=== PATIENT | female | born 1970 | race Caucasian/White ===

== ENCOUNTER 2020-05-11 07:12 | Outpatient (REF) | payer MEDICARE, MEDICAID, SELFPAY ==
--- NOTE | 2020-05-11 07:30 | MR_ITS ---
EXAMINATION: MR BRAIN WITHOUT CONTRAST CLINICAL INFORMATION: Migraine. Rule out ethmoid sinusitis. COMPARISON: Brain MRI report dated 04/17/2014. TECHNIQUE: Multiplanar, multisequence imaging of the brain was performed without contrast. FINDINGS: No diffusion abnormalities are identified to suggest an acute infarct. The ventricles are normal in size. No mass effect or midline shift is seen. A small focus of T2 hyperintense signal change in the subcortical white matter of the posterior right parietal lobe is nonspecific. No extra-axial fluid collections are seen. The brainstem and cerebellum are normal. The gradient refocused acquisition is normal. The craniovertebral junction, marrow signal, and midline structures are normal. The major intracranial flow voids at the level of the [place] are preserved. The dural venous sinus flow voids are maintained. The mastoid air cells and paranasal sinuses are well aerated. IMPRESSION: Nonspecific subcentimeter focus of signal change in the subcortical white matter of the posterior right parietal lobe of indeterminate clinical significance. Otherwise, relatively normal MRI of the brain. No acute process.
== END 2020-05-11 07:13 | disposition home or self-care (01) ==
LOC: HO.MRI 07:12
PROVIDERS: Visit Provider Psychiatry & Neurology Neurology
DX: G43.909 Migraine, unspecified, not intractable, without status migrainosus (principal)
CPT/HCPCS: 70551

== ENCOUNTER → 2020-05-25 14:37 | Outpatient (BNVA) | payer MEDICARE, MEDICAID, SELFPAY | PROVIDERS: PCP Internal Medicine; Referring Provider Internal Medicine; Visit Provider Internal Medicine Gastroenterology | DX: K31.84 Gastroparesis (principal); K59.00 Constipation, unspecified; R00.2 Palpitations; Z79.899 Other long term (current) drug therapy | CPT/HCPCS: 99212 ==

== ENCOUNTER → 2020-08-31 14:21 | Outpatient (BNVA) | payer MEDICARE, MEDICAID, SELFPAY | PROVIDERS: PCP Internal Medicine; Visit Provider Internal Medicine Gastroenterology | DX: Z76.89 Persons encountering health services in other specified circumstances (principal) | CPT/HCPCS: Q3014 ==

== ENCOUNTER 2020-11-12 09:19 | Outpatient (REF) | payer MEDICARE, MEDICAID, SELFPAY ==
[2020-11-12 10:23] LABS: Anion Gap 12 (12-20); Blood Urea Nitrogen 20 mg/dL (9-16); Calcium 9.5 mg/dL (8.4-10.2); Carbon Dioxide 27 mmol/L (22-29); Chloride 104 mmol/L (96-108); Estimated Glomerular Filt Rate > 60; Glucose Random 99 mg/dL (60-115); Potassium 3.7 mmol/L (3.3-5.1); Sodium 139 mmol/L (135-145)
[2020-11-14 21:26] LABS: Chromogranin A 167 ng/mL (25-140)
[2020-11-16 17:42] LABS: Insulin Level Total 2.4 uIU/mL
[2020-11-18 05:07] LABS: Beta-Hydroxybutyrate 0.05 mmol/L
[2020-11-18 13:56] LABS: Creatinine Random Urine 47 mg/dL (20-275); Metanephrine, Free Rand Ur 116 mcg/g cr (21-153); Normetanephrine, Free Rand Ur 166 mcg/g cr (108-524); Total Metanephrine, Free RU 282 mcg/g cr (149-603)
[2020-11-23 17:27] LABS: Catecholamine Frac, Total 901 pg/mL
== END 2020-11-12 09:20 | disposition home or self-care (01) ==
LOC: HO.LAB 09:19
PROVIDERS: PCP Internal Medicine; Visit Provider Internal Medicine Endocrinology, Diabetes & Metabolism
DX: E16.2 Hypoglycemia, unspecified (principal)
CPT/HCPCS: 36415; 80048; 82010; 82384; 83525; 83835; 84146; 84681; 86316

== ENCOUNTER 2020-11-14 08:30 | Outpatient (REF) | payer MEDICARE, MEDICAID, SELFPAY ==
[2020-11-19 01:57] LABS: Metanephrine, Free 24U 148 mcg/24 h (90-315); Normetanephrine, Free 24U 268 mcg/24 h (122-676); Total Metanephrine, Free 24U 416 mcg/24 h (224-832); Total Volume 24U 2650 mL
[2020-11-19 15:11] LABS: Creatinine, 24U 1.09 g/24 h (0.50-2.15); Total Volume 2650; Vanillymandelic Acid 2.1 mg/24 h (<=6.0)
[2020-11-19 15:37] LABS: CATF, 24 Ur Volume 2650 mL; CATF-24Ur Creatinine 1.07 g/24 h (0.50-2.15); Catecholamines,Tot. (E+NE) 24U 49 mcg/24 h (26-121); Dopamine, 24 Ur 168 mcg/24 h (52-480); Epinephrine, 24 Ur 10 mcg/24 h (2-24); Norepinephrine, 24 Ur 39 mcg/24 h (15-100)
== END 2020-11-14 08:31 | disposition home or self-care (01) ==
LOC: HO.LNP 08:30
PROVIDERS: Visit Provider Internal Medicine Endocrinology, Diabetes & Metabolism
DX: E16.2 Hypoglycemia, unspecified (principal)
CPT/HCPCS: 82384; 83835; 84585

== ENCOUNTER → 2020-11-18 07:18 | Outpatient (BNVA) | payer MEDICARE, MEDICAID, SELFPAY | PROVIDERS: PCP Internal Medicine; Visit Provider Internal Medicine Endocrinology, Diabetes & Metabolism | DX: E16.2 Hypoglycemia, unspecified (principal) | CPT/HCPCS: 99212 ==

== ENCOUNTER → 2020-12-22 13:47 | Outpatient (BNVA) | payer MEDICARE, MEDICAID, SELFPAY | PROVIDERS: PCP Internal Medicine; Visit Provider Internal Medicine Gastroenterology | DX: K31.84 Gastroparesis (principal) | CPT/HCPCS: 99212 ==

== ENCOUNTER → 2021-02-11 09:03 | Outpatient (BNVA) | payer MEDICARE, MEDICAID, SELFPAY | PROVIDERS: PCP Internal Medicine; Visit Provider Internal Medicine Endocrinology, Diabetes & Metabolism | DX: E16.2 Hypoglycemia, unspecified (principal) | CPT/HCPCS: Q3014 ==

== ENCOUNTER → 2021-06-18 08:55 | Outpatient (BNVA) | payer MEDICARE, MEDICAID, SELFPAY | PROVIDERS: PCP Internal Medicine; Visit Provider Internal Medicine Gastroenterology | DX: Z13.89 Encounter for screening for other disorder (principal) | CPT/HCPCS: Q3014 ==

== ENCOUNTER → 2021-10-15 08:45 | Outpatient (BNVA) | payer MEDICARE, MEDICAID, SELFPAY | PROVIDERS: PCP Internal Medicine; Visit Provider Internal Medicine Gastroenterology | DX: Z13.89 Encounter for screening for other disorder (principal) | CPT/HCPCS: Q3014 ==

== ENCOUNTER 2021-10-19 07:55 | Outpatient (REF) | payer MEDICARE, MEDICAID, SELFPAY ==
[2021-10-20 16:16] LABS: H Pylori Breath Test Negative (Negative)
== END 2021-10-19 07:56 | disposition home or self-care (01) ==
LOC: HO.LNP 07:55
PROVIDERS: PCP Internal Medicine; Visit Provider Internal Medicine Gastroenterology
DX: R10.13 Epigastric pain (principal); E16.2 Hypoglycemia, unspecified
CPT/HCPCS: 83013; 99211; 99212

== ENCOUNTER → 2022-01-17 09:12 | Outpatient (BNVA) | payer MEDICARE, MEDICAID, SELFPAY | PROVIDERS: PCP Internal Medicine; Visit Provider Internal Medicine Gastroenterology | DX: K31.84 Gastroparesis (principal); K21.9 Gastro-esophageal reflux disease without esophagitis | CPT/HCPCS: 99212 ==

== ENCOUNTER → 2022-06-27 11:49 | Outpatient (BNVA) | payer MEDICARE, MEDICAID, SELFPAY | PROVIDERS: PCP Internal Medicine; Visit Provider Internal Medicine Gastroenterology | DX: K31.84 Gastroparesis (principal); K21.9 Gastro-esophageal reflux disease without esophagitis | CPT/HCPCS: Q3014 ==

== ENCOUNTER 2023-01-30 13:37 | Outpatient (REF) | payer MEDICARE, MEDICAID, SELFPAY ==
[2023-01-30 14:32] LABS: MANUAL DIFF FLAG NO
[2023-01-30 15:24] LABS: Basophils Percent Auto 0.6 % (0-2); Eosinophils Absolute Auto 0.1 X10*3/uL (0.0-0.4); Eosinophils Percent Auto 1.2 % (0-4); Hematocrit 42.8 % (37.0-47.0); Hemoglobin 14.8 g/dl (12.0-16.0); Imm Gran Abs Auto 0.02 X10*3/uL (0.00-0.03); Imm Gran Pct Auto 0.3 % (0.0-0.4); Lymphocytes Absolute Auto 1.8 X10*3/uL (1.2-4.9); Mean Corpuscular HGB Conc 34.6 g/dl (31.0-35.0); Mean Corpuscular Hemoglobin 31.6 pg (27.0-33.0); Mean Corpuscular Volume 91.5 fL (80.0-98.0); Mean Platelet Volume 9.5 fL (9.4-12.3); Monocytes Absolute Auto 0.4 X10*3/uL (0.1-1.2); Monocytes Percent Auto 5.9 % (2-11); Neutrophils Absolute Auto 4.1 x10*3/uL (2.0-8.3); Platelet Count 295 X10*3/uL (160-400); Red Blood Count 4.68 X10*6/uL (4.20-5.50); Red Cell Distribution Width 13.2 % (11.0-16.0); White Blood Count 6.4 X10*3/uL (4.8-10.8)
[2023-01-30 15:52] LABS: Alanine Aminotransferase 23 U/L (0-31); Albumin Level 4.5 g/dL (3.5-5.0); Alkaline Phosphatase 74 U/L (39-117); Anion Gap 13 (12-20); Aspartate Amino Transferase 18 U/L (5-31); Bilirubin Total 0.3 mg/dL (0.0-1.0); Blood Urea Nitrogen 12 mg/dL (9-16); Calcium 10.2 mg/dL (8.4-10.2); Carbon Dioxide 28 mmol/L (22-29); Chloride 105 mmol/L (96-108); Estimated Glomerular Filt Rate > 60; Glucose Random 98 mg/dL (60-115); Potassium 3.5 mmol/L (3.3-5.1); Sodium 142 mmol/L (135-145); Total Protein 7.9 g/dL (6.5-8.0)
[2023-01-30 16:07] LABS: Ferritin 32 ng/mL (10-250); Vitamin D 25-OH Total 50.1 ng/mL (>30)
[2023-01-30 16:21] LABS: Folate 15.4 ng/mL (> or = 4.0); Vitamin B12 554 pg/mL (200-900)
[2023-02-02 06:13] LABS: Zinc 75 mcg/dL (60-130)
[2023-02-02 23:48] LABS: Alpha-Tocopherol 9.8 mg/L (5.7-19.9); Beta-Gamma Tocopherol <1.0 mg/L (<=4.3); Vitamin A 61 mcg/dL (38-98)
[2023-02-03 14:48] LABS: Vitamin B1 7 nmol/L (8-30)
[2023-02-03 17:38] LABS: Vitamin K1 184 pg/mL (130-1500)
[2023-02-04 17:53] LABS: Vitamin C 0.6 mg/dL (0.3-2.7)
[2023-02-04 21:48] LABS: Nicotinamide 24 ng/mL; Vit B3 - Nicotinic Acid <20 ng/mL
[2023-02-04 22:59] LABS: Vitamin B5 (Pantothenic Acid) 56 ng/mL (<275)
[2023-02-05 11:54] LABS: Vitamin B6 5.4 ng/mL (2.1-21.7)
== END 2023-01-30 13:38 | disposition home or self-care (01) ==
LOC: HO.LAB 13:37
PROVIDERS: PCP Internal Medicine; Visit Provider Internal Medicine Gastroenterology
DX: K75.81 Nonalcoholic steatohepatitis (NASH) (principal); K31.84 Gastroparesis; K21.9 Gastro-esophageal reflux disease without esophagitis; E46 Unspecified protein-calorie malnutrition
CPT/HCPCS: 36415; 80053; 82180; 82306; 82607; 82728; 82746; 84207; 84425; 84446; 84590; 84591; 84597; 84630; 85025; 99212

== ENCOUNTER 2023-10-09 09:38 | Outpatient (AMB) | payer MEDICARE, MEDICAID, SELFPAY ==
--- NOTE | 2023-10-09 09:43 | A.OFFVIS_ITS ---
Intake Vital Signs 10/09/23 09:47 Height 5 ft 5 in Weight 134 lb 7.712 oz BMI 22.4 BP 111/67 Blood Pressure Location Lt brachial Position Sitting Pulse 87 Intake Visit Reasons: 6 month fu Intake Note: Lorie presents in the office as a 6 month follow up. She states that she was just diagnosed with Osteoporosis and she needs to be seen by an Human Resources Benefits Coordinator for her GERD. GERD is getting worse and she is aware of the hiatal hernia. She wants to know if she can have an EGD to see if it has gotten any bigger. Allergies egg yolk Allergy (Mild, Verified 10/09/23 09:47) Unknown clarithromycin [From BIAXIN] Allergy (Unknown, Verified 10/09/23 09:47) SWELLING codeine [CODEINE] Allergy (Unknown, Verified 10/09/23 09:47) SWELLING egg [EGG] Allergy (Unknown, Verified 10/09/23 09:47) SWELLING metoclopramide [From REGLAN] Allergy (Unknown, Verified 10/09/23 09:47) SWELLING nortriptyline Allergy (Unknown, Verified 10/09/23 09:47) swelling raw eggs Allergy (Mild, Uncoded 10/09/23 09:47) unknown Biaxin Allergy (Unknown, Uncoded 10/09/23 09:47) unknown HPI 6 month fu HPI Details 53 y/o f w gastroparesis, horseshoe kidn ey, hiatal hernia repair, cholecystectomy and chronic constipation being seen for f/u RECAP: she was initially seen by me at [facility] and had numerous Ix for abdominal sx was dx with gastroparesis she received endoscopic injection of botox for gastroparesis, she is unsure if helped c/o trouble swallowing both liquids and swallows, sometimes pain with swallowing pills worsening GERD worsening constipation, more pressure and straining required, has pain when trying to pass stools she has thought about manual disimpaction but never done it trulance didn;t help, restarted linalcotide for few months uncertain if helping EGD with esophageal/stomach dilation and botox injection MR defecogram was denied by insurance, she had tried pelvic floor exercises before Ba swallow: small hiatal hernia, pill went down easy, small amount of reflux CT with appendiceal fecolith, had appendectomy she had been referred to endocrine due to shaking episodes, sweaty and pale, feeling low, and has to take sugary items, never checked her blood sugar--work up in progress she was on motegrity 2 mg but didn't help she has been on linaclotide and its helping again she has had more acid reflux, had to be off PPI for tests appetite is variable stressed out due to covid, worried abt son on front line things are stable so far following up with endocrine for eval for insulinoma assessment I also gave her azithromycion as pro motility agent in case of flares of gastroparesis H pylori breath test was negative INTERIM: she has noted worsening heartburn but no dysphagia she had osteoposoris dx, waiting to see endocrinology uses azithormycin sparingly, feels gastroparesis better still taking linaclotide for constipation, feels maybe lost effect b1 was v low, hard for her to takke tabs due to smell EXAM: GENERAL: The patient is well developed and nontoxic. VITAL SIGNS:see workflow HEENT: Nonicteric sclerae, PERRLA, EOMI. Oropharynx clear. Moist mucous membranes. Conjunctivae appear well perfused. No thyroid mass. CHEST: Chest wall is nontender. HEART: Regular rate and rhythm without murmurs. LUNGS: Clear to auscultation bilaterally. ABDOMEN: Soft, positive bowel sounds, nontender, no organomegaly.no flank tenderness SKIN: No rash, no excessive bruising, petechiae, or purpura. NEUROLOGIC: Cranial nerves II-XII intact without motor/sensory deficit. Assessment & Plan 1/ Gastroparesis: improvement with azit hromycin prn 2/ GERD related to 1/ above--controlled 3/ constipation, controlled 4/ vit C def, thiamine defc Plan: 1/ cont with omeprazole 2/ cont with azithormycin prn 3/ change linaclotide to trulance 4/ esophageal ba swallow test 5/ thiamine caps can be tried or she can crush the b1 and take with food PFSH Medical History Epigastric abdominal pain Hypoglycemia Surgical History (Updated 10/09/23 @ 09:48 by BRITTANY Verduzco) Hx of total knee replacement H/O cataract removal with insertion of prosthetic lens Hx of appendectomy History of carpal tunnel release Hx of eye surgery Hx of bladder repair surgery History of repair of hiatal hernia Hx of abdominal hysterectomy Hx of fusion of cervical spine Hx of endoscopy History of colonoscopy Family History Father History of cancer Mother Hx of heat stroke Social History Alcohol intake: current Alcohol intake frequency: holidays/special occasions only Substance Use Type: Marijuana Advance Directives Date on File: 05/11/20 Physical Exam Vital Signs: Last Vital Signs Pulse 87 10/09/23 09:47 BP 111/67 10/09/23 09:47 BMI result Body Mass Index 22.4 Assessment & Plan Assessment & Plan (1) GERD without esophagitis: Code(s): K21.9 - Gastro-esophageal reflux disease without esophagitis Plan: Plan: 1/ cont with omeprazole 2/ cont with azithormycin prn 3/ change linaclotide to trulance 4/ esophageal ba swallow test 5/ thiamine caps can be tried or she can crush the b1 and take with food Orders: Orders FL barium swallow Today K21.9 - Gastro-esophageal reflux disease without esophagitis Medications: New plecanatide (Trulance) 3 mg PO DAILY 30 tabs 3RF Coding Level of Care Code Est Pt Level 4 (95751) Diagnoses GERD without esophagitis K21.9
[2023-10-09 09:47] VITALS: BP 111/67; PULSE 87; BMI 22.4
== END 2023-10-09 10:21 | disposition home or self-care (01) ==
PROVIDERS: PCP Internal Medicine; Visit Provider Internal Medicine Gastroenterology
DX: K21.9 Gastro-esophageal reflux disease without esophagitis (principal)
CPT/HCPCS: 99214

== ENCOUNTER → 2023-10-09 09:38 | Outpatient (BNVA) | payer MEDICARE, MEDICAID, SELFPAY | PROVIDERS: PCP Internal Medicine; Visit Provider Internal Medicine Gastroenterology | DX: K21.9 Gastro-esophageal reflux disease without esophagitis (principal) | CPT/HCPCS: 99212 ==

== ENCOUNTER 2023-11-16 09:45 | Outpatient (REF) | payer MEDICARE, MEDICAID, SELFPAY ==
--- NOTE | ~2023-11-16 | FL_ITS ---
EXAMINATION: XR FLUOROSCOPY BARIUM SWALLOW CLINICAL INFORMATION: 53-year-old female, prior history of Melodie fundoplication with hiatal hernia repair, now complaining of worsening GERD; evaluate for hernia recurrence or other pathology. COMPARISON: 03/26/2019 barium swallow. TECHNIQUE: Fluoroscopic air contrast barium swallow examination was performed utilizing standard techniques with thin and thick barium and effervescent granules. Numerous spot images were obtained. Several fluoroscopic image hold cine sequences were also obtained. FINDINGS: The patient has anterior cervical fusion of C5-C6 with ventral plate and interbody screws, as well as cortical disc graft. No complication evident. There is bony fusion through the disc space. No mass effect upon the hypopharyngeal structures. In addition, cholecystectomy clips are noted. Patient has also had a lumbar fusion of L5-S1. Pallet Stone Positioner view demonstrates clear lungs, normal heart size. Normal bowel gas pattern present with mild to moderate stool burden seen. Lateral cine images of the oropharynx and hypopharynx demonstrate normal swallow mechanism with normal epiglottic inversion and soft palate elevation. On the first swallow, laryngeal penetration to the level of the false cords was present, without evidence of glottic or subglottic aspiration. Minimal nasopharyngeal reflux present. Persistent mild pooling in the vallecula and piriform sinuses. Hypopharyngeal structures appear normal without evidence of mass or diverticulum. There was no significant cricopharyngeal achalasia. Dual and single contrast images of the esophagus demonstrate normal caliber and contour. Granular mucosal pattern in the distal two thirds of the esophagus is noted (or 4-1, image 3 of 15) suggesting erosive esophagitis. Mild narrowing at the GE junction was noted, in keeping with prior Melodie fundoplication. There was a moderate-sized recurrent paraesophageal hiatus hernia present, which predisposed to episodic significant reflux. Mild esophageal dysmotility was noted, with feline contraction pattern of the upper one third, most often resulting from reflux. Unusual polypoid filling defect in the distal esophagus just above the hiatus hernia was present (RF 1-5, image 71 of 131), which may represent esophageal polyp although postop changes are a possibility. Significant gastroesophageal reflux was noted throughout the examination, most notable on supine positioning, where reflux reached the hypopharynx. Dual contrast and single contrast images of the stomach demonstrated normal contour. There were thickened rugal gastric folds, as well as several small filling defect in the antrum and body, suggesting small hyperplastic polyps. A few small foci of contrast pooling are consistent with small submucosal apthous ulcers. Findings suggest erosive esophagitis. Later views appeared to demonstrate mobile filling defects suggesting food and gastroparesis. Patient states they were nothing by mouth since prior evening. Delayed contrast passage noted into the duodenal bulb and duodenum. Findings support gastroparesis. Single and air-contrast images of the duodenal bulb demonstrate no abnormality. Limited evaluation of the duodenal sweep demonstrates no definite abnormality. No malrotation. The imaged proximal jejunum was limited in evaluation due to underdistention with contrast. FLUOROSCOPY TIME: 5 minutes 4 seconds Number of Spot Images: 15 Number of cines obtained: 15 DOSE AREA PRODUCT: 2516 uGy-m2 (microgray-meter squared) FL/FL barium swallow IMPRESSION: 1. Moderate-sized recurrent paraesophageal hiatus hernia, with evidence of prior Melodie fundoplication. 2. Extensive spontaneous gastroesophageal reflux, likely exacerbated by recurrent hernia. Reflux was seen to extend all the way into the hypopharynx. 3. Unusual linear filling defect in the distal esophagus, just above the hiatus hernia, for which a polyp is not excluded. This could also represent postsurgical change from prior Melodie fundoplication. Granular mucosal pattern in the distal one half of the esophagus suggests mild erosive esophagitis. 4. Feline contraction pattern of the upper one third of the esophagus, often associated with reflux. Mild to moderate esophageal dysmotility most notable in the distal one third. 5. Findings highly suggestive of erosive gastritis, with rugal fold thickening, submucosal aphthous ulcers, and associated retained filling defects which were mobile suggesting food and gastroparesis. The patient states she was nothing by mouth since prior evening. 6. Delayed contrast progression into the duodenum. 7. Limited evaluation of the duodenum and proximal jejunum due to poor contrast opacification. 8. On the first swallow, there was laryngeal penetration of thick barium to the level of the false cords. There was no glottic or subglottic aspiration. 9. Cervical fusion of C5-C6 without complication. No mass effect upon the hypopharynx. Given above findings, recommend GI consultation and correlation with EGD. Examination was performed and interpreted by Dr. Del Castillo.
== END 2023-11-16 09:46 | disposition home or self-care (01) ==
LOC: HO.XRAY 09:45
PROVIDERS: PCP Internal Medicine; Visit Provider Internal Medicine Gastroenterology
DX: K21.9 Gastro-esophageal reflux disease without esophagitis (principal)
CPT/HCPCS: 74220

== ENCOUNTER → 2023-11-16 09:46 | Outpatient (BNV) | payer MEDICARE, MEDICAID, SELFPAY | PROVIDERS: PCP Internal Medicine; Visit Provider Radiology Diagnostic Radiology | DX: K21.9 Gastro-esophageal reflux disease without esophagitis (principal); K44.9 Diaphragmatic hernia without obstruction or gangrene | CPT/HCPCS: 74246 ==

== ENCOUNTER 2024-01-05 08:43 | Outpatient (AMB) | payer MEDICARE, MEDICAID, SELFPAY ==
--- NOTE | 2024-01-05 08:47 | A.OFFVIS_ITS ---
VS Expanded 01/05/24 08:58 BP 118/63 Blood Pressure Location Rt brachial Blood Pressure Position Sitting Pulse 88 Pulse Source Pulse Oximeter Temp 97.3 F Temperature Source Tympanic Pulse Oximetry 100 Oxygen Delivery Method Room Air Height 5 ft 5 in Weight 129 lb 12.8 oz BMI 21.6 Body Fat % 30.1 Body Fat Mass 39.0 Fat Free Mass 90.6 Visceral Fat Rating 5.0 Body Water % 49.7 Body Water Mass 64.4 Muscle Mass/Score 86.0 Basal Metabolic Rate/Score 1,228 Intake Visit Reasons: OV Hiatal Hernia - Dr. Santana Ref. Allergies egg yolk Allergy (Mild, Verified 01/05/24 09:48) Unknown clarithromycin [From BIAXIN] Allergy (Unknown, Verified 01/05/24 09:48) SWELLING codeine [CODEINE] Allergy (Unknown, Verified 01/05/24 09:48) SWELLING egg [EGG] Allergy (Unknown, Verified 01/05/24 09:48) SWELLING metoclopramide [From REGLAN] Allergy (Unknown, Verified 01/05/24 09:48) SWELLING nortriptyline Allergy (Unknown, Verified 01/05/24 09:48) swelling raw eggs Allergy (Mild, Uncoded 01/05/24 09:48) unknown Biaxin Allergy (Unknown, Uncoded 01/05/24 09:48) unknown Medication List - Last Reconciled 01/05/24 by Luis Alvarez MD alprazolam 0.5 mg PO DAILY azithromycin 500 mg PO DAILY 21 days bupropion HCl XL 300 mg PO DAILY tzvrcbaxyq-wmsoomfipimoe-opdc 50-325-40 mg 1 tab PO PRN celecoxib mg PO cholecalciferol (vitamin D3) (Vitamin D3) 25 mcg PO DAILY cyanocobalamin (vitamin B-12) 1,000 mcg IM Q4W cyclobenzaprine 5 mg PO DAILY dronabinol 10 mg PO duloxetine mg PO estradiol 2 mg PO DAILY galcanezumab-gnlm 120 mg subcut .once a month hydrochlorothiazide 25 mg PO DAILY lidocaine 4% (Lidocaine Pain Relief) 1 patch topical DAILY omeprazole 40 mg PO DAILY ondansetron 4 mg PO Q8H PRN 30 days plecanatide (Trulance) 3 mg PO DAILY potassium citrate ER 20 mEq PO TID prazosin 1 mg PO DAILY sumatriptan succinate 100 mg PO DAILY topiramate 100 mg PO BID valacyclovir mg PO DAILY zolpidem 10 mg PO BEDTIME HPI Comments Details: Patient has a history of hiatal hernia repair and Melodie fundoplication by Dr. Jiménez at [facility] about 19 years ago. She knows she has a recurrent hernia and states that GERD is almost as bad as it was before the repair. Had also dysphagia and required several EGD dilations. [facility] Medical History (Updated 01/05/24 @ 09:46 by Luis Alvarez MD) Insomnia Migraines Epigastric abdominal pain Hypoglycemia Surgical History (Updated 01/05/24 @ 08:56 by Ashwini Gipson CMA) Hx of cholecystectomy Hx of spinal fusion History of fundoplication Hx of total knee replacement H/O cataract removal with insertion of prosthetic lens Hx of appendectomy History of carpal tunnel release Hx of eye surgery Hx of bladder repair surgery History of repair of hiatal hernia Hx of abdominal hysterectomy Hx of fusion of cervical spine Hx of endoscopy History of colonoscopy Family History Father History of cancer Mother Hx of heat stroke Social History Alcohol intake: current Alcohol intake frequency: holidays/special occasions only Substance Use Type: Marijuana Advance Directives Date on File: 05/11/20 Physical Exam Vital Signs: Last Vital Signs Temp 97.3 F 01/05/24 08:58 Pulse 88 01/05/24 08:58 BP 118/63 01/05/24 08:58 Pulse Ox 100 01/05/24 08:58 Oxygen Delivery Method Room Air 01/05/24 08:58 BMI result Body Mass Index 21.6 GI Inspection: Yes normal to inspection (Gynecoid habitus) and Yes incision (well healed) Palpation (GI): Soft to palpation Extrem Right lower extremity: normal to inspection Left lower extremity: normal to inspection Assessment & Plan Assessment & Plan (1) Paraesophageal hernia: Code(s): K44.9 - Diaphragmatic hernia without obstruction or gangrene Category: Medical Plan: We discussed the potential etiology of the hernia. We discussed the details of the diaphragmatic hernia repair and the potential technical challenges such as being able to achieve enough mobilization of the esophagus back in the abdomen and being able to close the diaphragmatic muscle (crura) primarily with sutures especially because of the previous hernia repair and scar tissue present. We also discussed the possibility of using a biologic mesh to close the hernia defect if the crura cannot be adequately re-approximated primarily with sutures. We also discussed the need to take down the previous fundoplication and this may require a limited resection of the stomach as well. We also discussed the need to do a gastropexy to prevent postoperative reflux and prevent hernia recurrence. As we discussed, I favor the gastropexy as the fundoplication can cause several distrurbing symptoms such as gas-bloating, flatulence, inability to burp which can be bothersome to patients especially for her. Also we discussed the complexity of a potential hernia recurrence in association with a hernia recurrence. We also discussed the risks, which are higher because of the re-do nature of this surgery including, leak, esophageal injury, pneumothorax, need of chest tube, major bleeding, or inability to complete the procedure safely. The patient understood and she will discuss with her and get back to me as to what she would like to do.
[2024-01-05 08:58] VITALS: BP 118/63; PULSE 88; TEMP 36.3; O2SAT 100; BMI 21.6
== END 2024-01-05 09:56 | disposition home or self-care (01) ==
PROVIDERS: PCP Internal Medicine; Visit Provider Surgery
DX: K44.9 Diaphragmatic hernia without obstruction or gangrene (principal)
CPT/HCPCS: 99204

== ENCOUNTER → 2024-01-05 08:43 | Outpatient (BNVA) | payer MEDICARE, MEDICAID, SELFPAY | PROVIDERS: PCP Internal Medicine; Visit Provider Surgery | DX: K44.9 Diaphragmatic hernia without obstruction or gangrene (principal) | CPT/HCPCS: 99202 ==

== ENCOUNTER 2024-02-06 08:52 | Day surgery (SDC) | payer MEDICARE, MEDICAID, SELFPAY ==
[2024-02-06 09:00] VITALS: BMI 21.0
[2024-02-06 09:19] VITALS: BP 113/72; PULSE 79; RESP 16; TEMP 36.2; O2SAT 97
--- NOTE | 2024-02-06 10:18 | HO.ANESPROP2 ---
HPI - Anesthesia Eval Consult details Narrative: 53 yo female patient for EGD PMFSH Active Problems Active Problems: All Active Problems Insomnia (Acute) Migraines (Acute) Paraesophageal hernia (Acute) Malnutrition (Acute) Hypoglycemia (Acute) GERD without esophagitis (Acute) Gastroparesis (Acute) Palpitations (Acute) Marijuana use- Last weeks ago Past Medical History Medical History Insomnia Migraines Epigastric abdominal pain Hypoglycemia Family History Family History Father History of cancer Mother Hx of heat stroke Family history of problems with anesthesia: No Surgical History Surgical History Hx of cholecystectomy Hx of spinal fusion History of fundoplication Hx of total knee replacement H/O cataract removal with insertion of prosthetic lens Hx of appendectomy History of carpal tunnel release Hx of eye surgery Hx of bladder repair surgery History of repair of hiatal hernia Hx of abdominal hysterectomy Hx of fusion of cervical spine Hx of endoscopy History of colonoscopy History of Problems with Anesthesia: Yes (H/o difficult intubation) Social History Social History Alcohol intake: current Alcohol intake frequency: holidays/special occasions only Patient Tobacco Use Status: Never used Tobacco Use of substances other than those prescribed or required for medical reasons: Yes Substance Use Type: Marijuana Substance Use Type Other:: Edibles and Smoke Are you DNR?: No Advance Directives: No Advance Directives Information Provided: Yes Advance Directives Date on File: 05/11/20 Meds Allergies Allergy/AdvReac Type Severity Reaction Status Date / Time egg yolk Allergy Mild Unknown Verified 02/06/24 09:21 clarithromycin [From BIAXIN] Allergy Unknown SWELLING Verified 02/06/24 09:21 codeine [CODEINE] Allergy Unknown SWELLING Verified 02/06/24 09:21 egg [EGG] Allergy Unknown SWELLING Verified 02/06/24 09:21 metoclopramide [From REGLAN] Allergy Unknown SWELLING Verified 02/06/24 09:21 nortriptyline Allergy Unknown swelling Verified 02/06/24 09:21 raw eggs Allergy Mild unknown Uncoded 02/06/24 09:21 Biaxin Allergy Unknown unknown Uncoded 02/06/24 09:21 Active Medications: Current Medications Lactated Ringer's (Lr) 1,000 mls @ 80 mls/hr IVCONT .[id number] DANIEL Home Medications ?Medication ?Instructions ?Recorded ?Confirmed ?Last Taken ?Type cyclobenzaprine 5 mg tablet 5 mg PO DAILY 02/11/21 02/06/24 02/05/24 History estradiol 2 mg tablet 2 mg PO DAILY 02/11/21 02/06/24 02/05/24 History dronabinol 10 mg capsule 10 mg PO DAILY 10/19/21 02/06/24 02/05/24 History prazosin 1 mg capsule 1 mg PO DAILY 10/19/21 02/06/24 02/05/24 History alprazolam 0.5 mg tablet 0.5 mg PO DAILY 01/17/22 01/05/24 Unknown History valacyclovir 500 mg tablet mg PO DAILY 01/17/22 01/05/24 Unknown History ptzinbqiyf-bsvkaqsijqoom-chocmucl 1 tab PO PRN pain 06/27/22 01/05/24 Unknown History 50 mg-325 mg-40 mg tablet cyanocobalamin (vitamin B-12) 1,000 mcg IM Q4W 06/27/22 02/06/24 02/05/24 History 1,000 mcg/mL injection solution galcanezumab-gnlm 120 mg/mL 120 mg subcut .once a month 06/27/22 01/05/24 Unknown History subcutaneous pen injector omeprazole 40 mg capsule,delayed 40 mg PO DAILY GERD 06/27/22 02/06/24 02/05/24 History release potassium citrate 10 mEq (1,080 20 meq PO TID 06/27/22 01/05/24 Unknown History mg) tablet,extended release sumatriptan succinate 100 mg tablet 100 mg PO DAILY 06/27/22 01/05/24 Unknown History zolpidem 10 mg tablet 10 mg PO BEDTIME 06/27/22 01/05/24 Unknown History celecoxib 200 mg capsule 200 mg PO DAILY 01/30/23 02/06/24 02/05/24 History cholecalciferol (vitamin D3) 25 25 mcg PO DAILY 01/30/23 02/06/24 02/05/24 History mcg (1,000 unit) tablet (Vitamin D3) hydrochlorothiazide 50 mg tablet 25 mg PO DAILY 01/30/23 02/06/24 02/05/24 History lidocaine 4 % topical patch 1 patch topical DAILY 01/30/23 01/05/24 Unknown History (Lidocaine Pain Relief) bupropion HCl 150 mg 24 hr tablet, 300 mg PO DAILY 10/09/23 02/06/24 02/05/24 History extended release duloxetine 30 mg capsule,delayed 30 mg PO DAILY 10/09/23 02/06/24 02/05/24 History release topiramate 100 mg tablet 100 mg PO BID 10/09/23 02/06/24 02/05/24 History Exam Height,Weight and Vital Signs: Height 5 ft 5 in Weight 57.153 kg Last Vital Signs Temp 97.2 F 02/06/24 09:19 Pulse 79 02/06/24 09:19 Resp 16 02/06/24 09:19 BP 113/72 02/06/24 09:19 Pulse Ox 97 02/06/24 09:19 O2 Del Method Room Air 02/06/24 09:19 Airway Mallampati Class: III (Small mouth. Cervical fusion) TM Dist: >3cm Neck ROM: Full Loose/Missing/Broken Teeth: No Heart: RRR Lungs: CTAB Assessment and Plan Assessment Anesthesia Assessment: Anesthesia Plan Discussed and Chart Reviewed Final Anesthetic Review Family History of Problems with Anesthesia: No History of Problems with Anesthesia: Yes (H/o difficult intubation) NPO: Yes ASA Class: III Final Preanesthetic Review: No Changes in Pt Med Stat, Meds/Allgs Chart Reviewed, Consent Obtained/Reviewed and Anes Risks/Benef Reviewed Patient Risk: Intermediate Procedure Risk: Low Assessment/Block/Sedation in SS: Assess/Block/Sedation-SS Anesthetic Plan Anesthetic Plan: GA and TIVA Disposition: Standard PACU
--- NOTE | 2024-02-06 10:36 | P.HPSUR_ITS ---
Pre-Procedural Eval Section A - 24 Hr Update-Section A only Date of Service: 02/06/24 The patient is an INPATIENT: No Section B - Complete if H&P > 30 days Chief Complaint: Diaphragmatic hernia without obstruction Details of Present Illness: GERD Relevant Family History (Specify if Yes): No Relevant Social History: None Present Medications: None Medical History: No relevant PMH History of Previous Operations: Relevant previous surgery/procedure and date(s) (laparoscopic diaphragmatic hernia and fundoplication) Allergies: Allergies Allergy/AdvReac Type Severity Reaction Status Date / Time egg yolk Allergy Mild Unknown Verified 02/06/24 09:21 clarithromycin [From BIAXIN] Allergy Unknown SWELLING Verified 02/06/24 09:21 codeine [CODEINE] Allergy Unknown SWELLING Verified 02/06/24 09:21 egg [EGG] Allergy Unknown SWELLING Verified 02/06/24 09:21 metoclopramide [From REGLAN] Allergy Unknown SWELLING Verified 02/06/24 09:21 nortriptyline Allergy Unknown swelling Verified 02/06/24 09:21 raw eggs Allergy Mild unknown Uncoded 02/06/24 09:21 Biaxin Allergy Unknown unknown Uncoded 02/06/24 09:21 Review of Systems Sugical H&P ROS: Negative: Constitution, Cardiovascular, Respiratory, Neurologic al, Psychiatric, Hem-Onc, Allergic/Immunologic, Gastrointestinal, Genitourinary, Musculoskeletal, Integumentary, Endocrine and Eyes/Ears/Nose/Throat Exam Surgical H&P Exam: Normal: HEENT, Normal: Heart, Normal: Lungs, Normal: Extremities, Normal: Abdomen, Normal: Skin and Normal: Neurological Plan Diagnosis/Plan: Unchanged (EGD to assess the hiatal hernia repair. Risks of bleeding and perforation were discussed with the patient and she is in agreement with the plan.) I have reviewed the history and physical and performed a pertinent physical examination on my patient. No changes have occurred unless specified. Time Spent With Patient Time: Total time managing care of this patient today ____ minutes.
--- NOTE | 2024-02-06 10:41 | P.BOP_ITS ---
Brief Operative Note Date of Service: 02/06/24 Pre-op diagnosis: GERD and recurrent diaphragmatic hernia Post-op diagnosis: same Procedure: PROCEDURE DATE: 02/07/2024 PREOPERATIVE DIAGNOSIS: GERD and diaphragmatic hernia POSTOPERATIVE DIAGNOSIS: ?Same as above. 1) recurrent diaphragmatic hernia PROCEDURE: Bzlndhpn-foqgzx-tnnhiczfkuoy with biopsies Surgeon: ?Guillermo Alvarez M.D.. Ph.D. Integration Project Manager: None ? Anesthesia: IV sedation Estimated blood loss: ?Minimal FINDINGS AND PROCEDURE: ? OPERATIVE INDICATIONS: ?The patient is a 53 year old female known to me who underwent a diaphragmatic hernia repair with fundoplication in 1997 at [facility]. The patient has recurrent GERD and recent work-up is suggestive for a recurrent hiatal hernia. Based on this information I recommended an upper endoscopy to evaluate the patient's symptoms. Risks and complications of the surgery were discussed with the patient in advance particularly the possibility of perforation or bleeding that may require surgical intervention. The patient understood the risks and was in agreement with the plan. ? PROCEDURE: After informed consent was obtained by the patient, the patient was ?transferred to the Operating Room and was placed in the supine position.? After successful induction of IV sedation, a mouth block was inserted and the patient was placed in the left lateral decubitus position. An upper endoscopy was performed next, the oropharynx and esophagus appeared within the normal limits. There was a 4cm fixed hiatal hernia (GE junction at 36cm from incisors and hiatus at 40cm from incisors). The z-line was smooth. Two biopsies were obtained from the distal esophagus 2-3 cm proximal to the GE junction and three additional biopsies from the GE junction. The stomach was entered and it appeared to be of normal size. There was no gastritis. There was no stricture or ulcer. A biopsy was obtained from the gastric fundus and antrum. No significant bleeding was noted from any of the biopsy sites. Retroflexion of the scope confirmed the presence of the diaphragmatic hernia. The scope was then advanced into the duodenum which appeared to be normal as well. At that point the duodenum ?and the stomach were decompressed and the scope was withdrawn from the patient's mouth. The patient extubated and was transferred in stable condition to the Recovery Room for further care. I was present and performed all steps of the procedure. There were no residents to assist with this case. Guillermo Alvarez M.D., Ph.D. Surgeon: Luis Alvarez MD Anesthesia: MAC Was an Integration Project Manager used for this Procedure?: No Estimated blood loss (mL): 0 IV fluids (mL): 400 Urine output (mL): 0 (No Dong to record output) Pathology: other (1) antrum x1, 2) fundus x1, 3) GE junction x3, 4) distal esophagus x2) Condition: stable Disposition: PACU
[2024-02-06 11:15] VITALS: BP 91/51; PULSE 68; RESP 16; TEMP 36.6; O2SAT 98
[2024-02-06 11:20] VITALS: BP 88/53; PULSE 69; RESP 16; O2SAT 100
[2024-02-06 11:30] VITALS: BP 102/66; PULSE 81; RESP 16; O2SAT 100
[2024-02-06 11:45] VITALS: BP 100/65; PULSE 77; RESP 16; TEMP 36.5; O2SAT 99
== END 2024-02-06 12:34 | disposition home or self-care (01) ==
PROVIDERS: PCP Internal Medicine; Visit Provider Surgery
PROC: 0DJ08ZZ Inspection of Upper Intestinal Tract, Via Natural or Artificial Opening Endoscopic (ICD-10-PCS; CPT 43235; principal; 2024-02-06 10:50)
DX: K21.9 Gastro-esophageal reflux disease without esophagitis (principal); K44.9 Diaphragmatic hernia without obstruction or gangrene; E16.2 Hypoglycemia, unspecified; Z79.899 Other long term (current) drug therapy; Z88.5 Allergy status to narcotic agent; Z88.8 Allergy status to other drugs, medicaments and biological substances; Z98.890 Other specified postprocedural states
CPT/HCPCS: 43239; 88305; 88313; 88342; J2250; J2704

== ENCOUNTER → 2024-02-06 08:52 | Outpatient (BNV) | payer MEDICARE, MEDICAID, SELFPAY | PROVIDERS: PCP Internal Medicine; Visit Provider Surgery | DX: K44.9 Diaphragmatic hernia without obstruction or gangrene (principal) | CPT/HCPCS: 43239 ==

== ENCOUNTER 2024-03-05 11:59 | Outpatient (REF) | payer MEDICARE, MEDICAID, SELFPAY ==
[2024-03-05 13:06] LABS: Anion Gap 10 (12-20); Blood Urea Nitrogen 16 mg/dL (9-16); Calcium 9.9 mg/dL (8.4-10.2); Carbon Dioxide 28 mmol/L (22-29); Chloride 107 mmol/L (96-108); Estimated Glomerular Filt Rate > 60; Glucose Random 97 mg/dL (60-115); Potassium 4.7 mmol/L (3.3-5.1); Sodium 140 mmol/L (135-145)
[2024-03-05 13:24] LABS: Thyroid Stimulating Hormone 1.54 uIU/mL (0.32-4.0)
[2024-03-05 13:28] LABS: Folate 6.1 ng/mL (> or = 4.0); Vitamin B12 368 pg/mL (200-900)
== END 2024-03-05 12:00 | disposition home or self-care (01) ==
LOC: HO.LAB 11:59
PROVIDERS: PCP Internal Medicine; Visit Provider Psychiatry & Neurology Neurology
DX: R41.3 Other amnesia (principal)
CPT/HCPCS: 36415; 80048; 82607; 82746; 84436; 84443

== ENCOUNTER 2024-04-12 09:51 | Outpatient (AMB) | payer MEDICARE, MEDICAID, SELFPAY ==
--- NOTE | 2024-04-12 10:00 | A.OFFVIS_ITS ---
VS Expanded 04/12/24 10:08 BP 123/79 Blood Pressure Location Rt brachial Blood Pressure Position Sitting Pulse 80 Pulse Source Pulse Oximeter Temp 96.5 F L Temperature Source Temporal Artery Scan Pulse Oximetry 99 Oxygen Delivery Method Room Air Height 5 ft 5 in Weight 133 lb 6.4 oz BMI 22.2 Body Fat % 26.1 Body Fat Mass 34.8 Fat Free Mass 98.6 Visceral Fat Rating 5.0 Body Water % 52.4 Body Water Mass 69.8 Muscle Mass/Score 93.4 Basal Metabolic Rate/Score 1,312 Intake Visit Reasons: (OV) Pre Op Diaphragmatic Hernia 04/23/24 *SEE COM* Allergies egg yolk Allergy (Mild, Verified 04/12/24 10:18) Unknown clarithromycin [From BIAXIN] Allergy (Unknown, Verified 04/12/24 10:18) SWELLING codeine [CODEINE] Allergy (Unknown, Verified 04/12/24 10:18) SWELLING egg [EGG] Allergy (Unknown, Verified 04/12/24 10:18) SWELLING metoclopramide [From REGLAN] Allergy (Unknown, Verified 04/12/24 10:18) SWELLING nortriptyline Allergy (Unknown, Verified 04/12/24 10:18) swelling raw eggs Allergy (Mild, Uncoded 04/12/24 10:18) unknown Biaxin Allergy (Unknown, Uncoded 04/12/24 10:18) unknown Medication List - Last Reconciled 04/12/24 by Luis Alvarez MD alprazolam 0.5 mg PO DAILY azithromycin 500 mg PO DAILY 21 days bupropion HCl XL 300 mg PO DAILY vfbrovrnbz-smxcinxaiglqt-rxst 50-325-40 mg 1 tab PO PRN celecoxib 200 mg PO DAILY cholecalciferol (vitamin D3) (Vitamin D3) 25 mcg PO DAILY cyanocobalamin (vitamin B-12) 1,000 mcg IM Q4W cyclobenzaprine 5 mg PO DAILY dronabinol 10 mg PO DAILY duloxetine 30 mg PO DAILY estradiol 2 mg PO DAILY galcanezumab-gnlm 120 mg subcut .once a month hydrochlorothiazide 25 mg PO DAILY lidocaine 4% (Lidocaine Pain Relief) 1 patch topical DAILY omeprazole 40 mg PO DAILY ondansetron 4 mg PO Q8H PRN 30 days plecanatide (Trulance) 3 mg PO DAILY potassium citrate ER 20 mEq PO TID prazosin 1 mg PO DAILY sumatriptan succinate 100 mg PO DAILY topiramate 100 mg PO BID valacyclovir mg PO DAILY zolpidem 10 mg PO BEDTIME HPI Comments Details: Here for preoperative appointment for upcoming redo laparoscopic diaphragmatic hernia repair PFSH Medical History Insomnia Migraines Epigastric abdominal pain Hypoglycemia Surgical History Hx of cholecystectomy Hx of spinal fusion History of fundoplication Hx of total knee replacement H/O cataract removal with insertion of prosthetic lens Hx of appendectomy History of carpal tunnel release Hx of eye surgery Hx of bladder repair surgery History of repair of hiatal hernia Hx of abdominal hysterectomy Hx of fusion of cervical spine Hx of endoscopy History of colonoscopy Family History Father History of cancer Mother Hx of heat stroke Social History Alcohol intake: current Alcohol intake frequency: holidays/special occasions only Patient Tobacco Use Status: Never used Tobacco Substance Use Type: Marijuana Advance Directives Date on File: 05/11/20 Physical Exam Vital Signs: Last Vital Signs Temp 96.5 F L 04/12/24 10:08 Pulse 80 04/12/24 10:08 BP 123/79 04/12/24 10:08 Pulse Ox 99 04/12/24 10:08 Oxygen Delivery Method Room Air 04/12/24 10:08 BMI result Body Mass Index 22.2 GI Inspection: Yes normal to inspection and Yes incision (well healed) Palpation (GI): Soft to palpation Extrem Right lower extremity: normal to inspection Left lower extremity: normal to inspection Assessment & Plan Assessment & Plan (1) GERD without esophagitis: Code(s): K21.9 - Gastro-esophageal reflux disease without esophagitis Category: Medical Plan: 1. We discussed the potential etiology of the hernia that could be of traumatic etiology worsened by his weight. We discussed the details of the diaphragmatic hernia repair and the potential technical challenges such as being able to achieve enough mobilization of the esophagus back in the abdomen and being able to close the diaphragmatic muscle (crura) primarily with sutures. We also discussed the possibility of using a biologic mesh to close the hernia defect if the crura cannot be adequately re-approximated primarily with sutures. We also discussed the option of doing a gastropexy or a fundoplication to prevent postoperative reflux and prevent hernia recurrence. As we discussed, I favor the gastropexy as the fundoplication can cause several distrurbing symptoms such as gas-bloating, flatulence, inability to burp which can be bothersome to patients. Also we discussed the complexity of a potential hernia recurrence in association with a hernia recurrence. She was in agreement not to have a fundoplication. Also we discussed the possibility of not being able to complete the operation given the fact this is a redo operation and can be significantly more challenging. 2. Preop prescriptions were provided and explained the purpose of each one. Need to be purchased preop. Start Pantoprazole now as you get it from the pharmacy, 1 pill per day. Sucralfate and Zofran are for after surgery as needed. 3. Bowel prep: please do 7 packets ?of Miralax mixing each one with a an 8oz glass of water, crystal light, gatorade zero, or propel ?on 04/21/24 and the same amount on 04/22/24. The Miralax you begin with one packet at a time in 8oz water or crystal light, gatorade zero, or propel ?as early in the day as you can and you do them back to back until you finish them. Continue the protein shakes during ?the bowel prep. 4. Needs to purchase 1oz medicine cups . 5. Needs to purchase Children's liquid Tylenol for postop pain control. 6. She needs to stop as of tomorrow 04/13/24 the Cyclobenzaprine. Also do not take the Hydrochlorothiazide on 04/22/24 (last pill on 04/21/24). Avoid aspirin, motrin, Advil, Aleve, Ibuprofen, Naproxyn. Tylenol is OK. 7. She needs to purchase the Celebrate 4:1 protein shakes from the hospital's gift shop. 8. Will do basic preop blood work-up and EKG any day at latest by Monday04/19/24 fasting for 12 hours and is scheduled to see the Anesthesiologist prior to the day of surgery. 9. Importance of adherence to postop folllow-up and recommendations was underscored and she understands that. 11. Stop food and bars as of Monday and continue with 5 CELEBRATE REBUILD protein shakes (ONE scoop EACH in 8oz almond milk) at 6am-8am, 9am-11am, 12pm- 2pm, 3pm-5pm and 6pm-8pm 12. No soups, broths or V8 13. The patient's?medical?history has been reviewed and they are considered low risk for post op DVT and therefore DVT prophylaxis is not considered necessary. Travel after surgery was reviewed. The patient has not disclosed any travel plans during the first 30 days after surgery and they have been advised that within the first 30 days after surgery any bus, plane, train or car travel over 2 hours in duration is contraindicated due to the possibility of developing blo od clots from immobility. Any travel, needs to include periods of ambulation of 10 minutes in duration every 2 hours.? Patient was instructed to discuss any plans for travel during this period with their bariatric surgeon.? 14. Please take at the day of surgery the following medications: NONE 16. Stop any control pills and don't use them for one month after surgery 17. Absolutely no smoking or vaping, or marijuana until the surgery and for at least the first 4 weeks. Only nicotine patches are allowed. 18. Avoid any steroids by mouth for any reason. Let me know if someone prescribes them to you Orders: Orders Prothrombin Time INR Today Z01.818 - Encounter for other preprocedural examination Type and Screen Today Z01.818 - Encounter for other preprocedural examination Complete Blood Count Auto Diff Today Z01.818 - Encounter for other preprocedural examination Comprehensive Met. Panel Today Z01.818 - Encounter for other preprocedural examination TSH reflex Free T4 Today Z01.818 - Encounter for other preprocedural examination Partial Thromboplastin Time Today Z01.818 - Encounter for other preprocedural examination Hemoglobin A1c Today Z01.818 - Encounter for other preprocedural examination ECG 12 lead EKG Today Z01.818 - Encounter for other preprocedural examination Medications: New pantoprazole 40 mg PO DAILY 90 tabs 0RF K21.9 - Gastro-esophageal reflux disease without esophagitis sucralfate 10 mL PO BID 600 mL 2RF K21.9 - Gastro-esophageal reflux disease without esophagitis ondansetron Only take one every 12 hours as needed if you have nausea 4 mg PO Q12H 20 tabs 0RF nausea and vomiting R11.0 - Nausea polyethylene glycol 3350 Mix each measuring cup with 8oz of water, Crystal light, or Gatorade zero, or Propel and do 7 measuring cups on 04/21/24 and another 7 measuring cups on 04/22/24 17 grams PO DAILY 238 grams 0RF Z01.818 - Encounter for other preprocedural examination
[2024-04-12 10:08] VITALS: BP 123/79; PULSE 80; TEMP 35.8; O2SAT 99; BMI 22.2
== END 2024-04-12 10:30 | disposition home or self-care (01) ==
PROVIDERS: PCP Internal Medicine; Visit Provider Surgery
DX: K21.9 Gastro-esophageal reflux disease without esophagitis (principal)
CPT/HCPCS: 99214

== ENCOUNTER → 2024-04-12 09:51 | Outpatient (BNVA) | payer MEDICARE, MEDICAID, SELFPAY | PROVIDERS: PCP Internal Medicine; Visit Provider Surgery | DX: Z01.818 Encounter for other preprocedural examination (principal); K21.9 Gastro-esophageal reflux disease without esophagitis | CPT/HCPCS: 99212 ==

== ENCOUNTER 2024-04-30 06:41 | Inpatient (IN) | payer MEDICARE, MEDICAID, SELFPAY ==
--- NOTE | 2024-04-12 10:28 | ECG_ITS ---
Test Reason : Pre Op Blood Pressure : / mmHG Vent. Rate : 060 BPM Atrial Rate : 060 BPM P-R Int : 176 ms QRS Dur : 078 ms QT Int : 412 ms P-R-T Axes : 078 083 079 degrees QTc Int : 412 ms Normal sinus rhythm Normal ECG No previous ECGs available Referred By: Luis Alvarez Electronically Signed By:GEO BOYD
[2024-04-12 11:04] LABS: MANUAL DIFF FLAG NO
[2024-04-12 11:42] LABS: Basophils Percent Auto 0.7 % (0-2); Eosinophils Absolute Auto 0.1 X10*3/uL (0.0-0.4); Eosinophils Percent Auto 2.1 % (0-4); Hematocrit 38.3 % (37.0-47.0); Hemoglobin 12.8 g/dl (12.0-16.0); Imm Gran Abs Auto 0.02 X10*3/uL (0.00-0.03); Imm Gran Pct Auto 0.5 % (0.0-0.4); Lymphocytes Absolute Auto 1.2 X10*3/uL (1.2-4.9); Lymphocytes Percent Auto 26.7 % (20-40); Mean Corpuscular HGB Conc 33.4 g/dl (31.0-35.0); Mean Corpuscular Hemoglobin 32.2 pg (27.0-33.0); Mean Corpuscular Volume 96.5 fL (80.0-98.0); Mean Platelet Volume 9.2 fL (9.4-12.3); Monocytes Absolute Auto 0.3 X10*3/uL (0.1-1.2); Monocytes Percent Auto 7.1 % (2-11); Neutrophils Absolute Auto 2.8 x10*3/uL (2.0-8.3); Neutrophils Percent Auto 62.9 % (45-73); Platelet Count 211 X10*3/uL (160-400); Red Blood Count 3.97 X10*6/uL (4.20-5.50); Red Cell Distribution Width 12.6 % (11.0-16.0); White Blood Count 4.4 X10*3/uL (4.8-10.8)
[2024-04-12 11:47] LABS: INTERNATIONAL NORM RATIO 0.9 (0.9-1.1); Prothrombin Time 11.3 SEC (11.1-13.3)
[2024-04-12 11:49] LABS: Partial Thromboplastin Time 32.9 SEC (26.0-36.8)
[2024-04-12 12:33] LABS: Estimated Average Glucose 100 mg/dL; Hemoglobin A1c % 5.1 % (<6.0)
[2024-04-12 12:35] LABS: Alanine Aminotransferase 11 U/L (0-31); Albumin Level 3.9 g/dL (3.5-5.0); Alkaline Phosphatase 63 U/L (39-117); Anion Gap 9 (12-20); Aspartate Amino Transferase 13 U/L (5-31); Bilirubin Total 0.3 mg/dL (0.0-1.0); Blood Urea Nitrogen 12 mg/dL (9-16); Calcium 9.4 mg/dL (8.4-10.2); Carbon Dioxide 26 mmol/L (22-29); Chloride 111 mmol/L (96-108); Estimated Glomerular Filt Rate > 60; Glucose Random 91 mg/dL (60-115); Potassium 5.1 mmol/L (3.3-5.1); Sodium 141 mmol/L (135-145)
[2024-04-12 12:55] LABS: TSH reflex Free T4 1.31 uIU/mL (0.32-4.0)
--- NOTE | 2024-04-22 08:15 | HO.ANESPROP2 ---
Documented by User: Briana Gustafson NP 04/22/24 08:17 HPI - Anesthesia Eval Consult details Narrative: 54yo F for Hernia Diaphragmatic Lap PMFSH Active Problems Active Problems: All Active Problems Preprocedural examination (Acute) Insomnia (Acute) Migraines (Acute) Paraesophageal hernia (Acute) Malnutrition (Acute) Hypoglycemia (Acute) GERD without esophagitis (Acute) Gastroparesis (Acute) Palpitations (Acute) Past Medical History Medical History Insomnia Migraines Epigastric abdominal pain Hypoglycemia Family History Family History Father History of cancer Mother Hx of heat stroke Family history of problems with anesthesia: No Surgical History Surgical History Hx of cholecystectomy Hx of spinal fusion History of fundoplication Hx of total knee replacement H/O cataract removal with insertion of prosthetic lens Hx of appendectomy History of carpal tunnel release Hx of eye surgery Hx of bladder repair surgery History of repair of hiatal hernia Hx of abdominal hysterectomy Hx of fusion of cervical spine Hx of endoscopy History of colonoscopy History of Problems with Anesthesia: Yes (H/o difficult intubation) Social History Social History Alcohol intake: current Alcohol intake frequency: holidays/special occasions only Patient Tobacco Use Status: Former Tobacco user Substance Use Type: Marijuana Substance Use Type Other:: gummies 2 mths ago for sleep and pain Have you been hit, kicked, punched, or otherwise hurt by someone within the past year? If so, by whom?: No Are you DNR?: No Advance Directives: Yes Advance Directives on File: Yes Advance Directives Date on File: 05/11/20 Recently lost weight without trying: Yes How much weight loss: 2-13 pounds Nutrition Risks: Acute nausea or vomiting x1 week Meds Allergies Allergy/AdvReac Type Severity Reaction Status Date / Time egg yolk Allergy Mild Unknown Verified 04/12/24 10:18 clarithromycin [From BIAXIN] Allergy Unknown SWELLING Verified 04/12/24 10:18 codeine [CODEINE] Allergy Unknown SWELLING Verified 04/12/24 10:18 egg [EGG] Allergy Unknown SWELLING Verified 04/12/24 10:18 metoclopramide [From REGLAN] Allergy Unknown SWELLING Verified 04/12/24 10:18 nortriptyline Allergy Unknown swelling Verified 04/12/24 10:18 raw eggs Allergy Mild unknown Uncoded 04/12/24 10:18 Biaxin Allergy Unknown unknown Uncoded 04/12/24 10:18 Home Medications ?Medication ?Instructions ?Recorded ?Confirmed ?Last Taken ?Type cyclobenzaprine 5 mg tablet 5 mg PO DAILY muscle relaxer 02/11/21 04/30/24 04/29/24 History estradiol 2 mg tablet 2 mg PO DAILY 02/11/21 04/30/24 04/29/24 History dronabinol 10 mg capsule 10 mg PO DAILY 10/19/21 04/30/24 04/29/24 History prazosin 1 mg capsule 1 mg PO DAILY 10/19/21 04/30/24 04/29/24 History alprazolam 0.5 mg tablet 0.5 mg PO DAILY 01/17/22 04/30/24 04/29/24 History valacyclovir 500 mg tablet 1 mg PO DAILY 01/17/22 04/30/24 04/29/24 History vtavixadoo-gthrnwrlesbgy-zwhidczx 1 tab PO DAILY PRN pain 06/27/22 04/30/24 04/22/24 History 50 mg-325 mg-40 mg tablet galcanezumab-gnlm 120 mg/mL 120 mg subcut .once a month 06/27/22 04/30/24 04/29/24 History subcutaneous pen injector omeprazole 40 mg capsule,delayed 40 mg PO DAILY GERD 06/27/22 04/30/24 04/29/24 History release potassium citrate 10 mEq (1,080 20 meq PO TID 06/27/22 04/30/24 04/29/24 History mg) tablet,extended release sumatriptan succinate 100 mg tablet 100 mg PO DAILY 06/27/22 04/30/24 04/29/24 History zolpidem 10 mg tablet 10 mg PO BEDTIME 06/27/22 04/30/24 04/29/24 History cholecalciferol (vitamin D3) 25 25 mcg PO DAILY 01/30/23 04/30/24 04/29/24 History mcg (1,000 unit) tablet (Vitamin D3) hydrochlorothiazide 50 mg tablet 25 mg PO DAILY 01/30/23 04/30/24 04/29/24 History bupropion HCl 150 mg 24 hr tablet, 300 mg PO DAILY 10/09/23 04/30/24 04/29/24 History extended release duloxetine 30 mg capsule,delayed 30 mg PO DAILY 10/09/23 04/30/24 04/29/24 History release topiramate 100 mg tablet 100 mg PO BID 10/09/23 04/30/24 04/29/24 History Exam Pertinent Lab Results Pertinent Lab Results: Laboratory Tests 04/12/24 04/12/24 10:54 11:03 WBC 4.4 L RBC 3.97 L Hgb 12.8 Hct 38.3 MCV 96.5 MCH 32.2 MCHC 33.4 RDW 12.6 Plt Count 211 D MPV 9.2 L Immature Gran % (Auto) 0.5 H Neut % (Auto) 62.9 Lymph % (Auto) 26.7 [place] % (Auto) 7.1 Eos % (Auto) 2.1 Baso % (Auto) 0.7 Lymph # (Auto) 1.2 [place] # (Auto) 0.3 Eos # (Auto) 0.1 Baso # (Auto) 0.0 Abs Immat Gran (auto) 0.02 Absolute Neuts (auto) 2.8 Absolute Nucleated RBC 0.000 Nucleated RBC % (auto) 0.0 PT 11.3 INR 0.9 APTT 32.9 Sodium 141 Potassium 5.1 Chloride 111 H Carbon Dioxide 26 Anion Gap 9 L BUN 12 Creatinine 0.90 Estim Creat Clear Calc TNP Estimated GFR > 60 Random Glucose 91 Estimat Average Glucose 100 Hemoglobin A1c % 5.1 Calcium 9.4 Total Bilirubin 0.3 AST 13 ALT 11 Alkaline Phosphatase 63 Total Protein 7.0 Albumin 3.9 TSH 1.31 Blood Type O Positive Antibody Screen NEGATIVE Narrative Narrative: EKG 04/2024 Vent. Rate : 060 BPM Atrial Rate : 060 BPM P-R Int : 176 ms QRS Dur : 078 ms QT Int : 412 ms P-R-T Axes : 078 083 079 degrees QTc Int : 412 ms Normal sinus rhythm Normal ECG No previous ECGs available Assessment and Plan Assessment Anesthesia Assessment: Chart Reviewed Final Anesthetic Review Family History of Problems with Anesthesia: No History of Problems with Anesthesia: Yes (H/o difficult intubation) Documented by User: Estela Harrington MD 04/30/24 08:11 PMFSH Past Medical History Medical History Insomnia Migraines Epigastric abdominal pain Hypoglycemia Family History Family History Father History of cancer Mother Hx of heat stroke Surgical History Surgical History Hx of cholecystectomy Hx of spinal fusion History of fundoplication Hx of total knee replacement H/O cataract removal with insertion of prosthetic lens Hx of appendectomy History of carpal tunnel release Hx of eye surgery Hx of bladder repair surgery History of repair of hiatal hernia Hx of abdominal hysterectomy Hx of fusion of cervical spine Hx of endoscopy History of colonoscopy Social History Social History Alcohol intake: current Alcohol intake frequency: holidays/special occasions only Patient Tobacco Use Status: Former Tobacco user Substance Use Type: Marijuana Substance Use Type Other:: gummies 2 mths ago for sleep and pain Have you been hit, kicked, punched, or otherwise hurt by someone within the past year? If so, by whom?: No Are you DNR?: No Advance Directives: Yes Advance Directives on File: Yes Advance Directives Date on File: 05/11/20 Recently lost weight without trying: Yes How much weight loss: 2-13 pounds Nutrition Risks: Acute nausea or vomiting x1 week Meds Allergies Allergy/AdvReac Type Severity Reaction Status Date / Time egg yolk Allergy Mild Unknown Verified 04/12/24 10:18 clarithromycin [From BIAXIN] Allergy Unknown SWELLING Verified 04/12/24 10:18 codeine [CODEINE] Allergy Unknown SWELLING Verified 04/12/24 10:18 egg [EGG] Allergy Unknown SWELLING Verified 04/12/24 10:18 metoclopramide [From REGLAN] Allergy Unknown SWELLING Verified 04/12/24 10:18 nortriptyline Allergy Unknown swelling Verified 04/12/24 10:18 raw eggs Allergy Mild unknown Uncoded 04/12/24 10:18 Biaxin Allergy Unknown unknown Uncoded 04/12/24 10:18 Home Medications ?Medication ?Instructions ?Recorded ?Confirmed ?Last Taken ?Type cyclobenzaprine 5 mg tablet 5 mg PO DAILY muscle relaxer 02/11/21 04/30/24 04/29/24 History estradiol 2 mg tablet 2 mg PO DAILY 02/11/21 04/30/24 04/29/24 History dronabinol 10 mg capsule 10 mg PO DAILY 10/19/21 04/30/24 04/29/24 History prazosin 1 mg capsule 1 mg PO DAILY 10/19/21 04/30/24 04/29/24 History alprazolam 0.5 mg tablet 0.5 mg PO DAILY 01/17/22 04/30/24 04/29/24 History valacyclovir 500 mg tablet 1 mg PO DAILY 01/17/22 04/30/24 04/29/24 History nsfdqdtuai-bvhdtnesebkgc-odkokkit 1 tab PO DAILY PRN pain 06/27/22 04/30/24 04/22/24 History 50 mg-325 mg-40 mg tablet galcanezumab-gnlm 120 mg/mL 120 mg subcut .once a month 06/27/22 04/30/24 04/29/24 History subcutaneous pen injector omeprazole 40 mg capsule,delayed 40 mg PO DAILY GERD 06/27/22 04/30/24 04/29/24 History release potassium citrate 10 mEq (1,080 20 meq PO TID 06/27/22 04/30/24 04/29/24 History mg) tablet,extended release sumatriptan succinate 100 mg tablet 100 mg PO DAILY 06/27/22 04/30/24 04/29/24 History zolpidem 10 mg tablet 10 mg PO BEDTIME 06/27/22 04/30/24 04/29/24 History cholecalciferol (vitamin D3) 25 25 mcg PO DAILY 01/30/23 04/30/24 04/29/24 History mcg (1,000 unit) tablet (Vitamin D3) hydrochlorothiazide 50 mg tablet 25 mg PO DAILY 01/30/23 04/30/24 04/29/24 History bupropion HCl 150 mg 24 hr tablet, 300 mg PO DAILY 10/09/23 04/30/24 04/29/24 History extended release duloxetine 30 mg capsule,delayed 30 mg PO DAILY 10/09/23 04/30/24 04/29/24 History release topiramate 100 mg tablet 100 mg PO BID 10/09/23 04/30/24 04/29/24 History Exam Airway Mallampati Class: II TM Dist: >3cm Neck ROM: Full Heart: rrr Lungs: cta Assessment and Plan Assessment Anesthesia Assessment: Anesthesia Plan Discussed Final Anesthetic Review NPO: Yes ASA Class: III Final Preanesthetic Review: No Changes in Pt Med Stat, Meds/Allgs Chart Reviewed, Consent Obtained/Reviewed and Anes Risks/Benef Reviewed Patient Risk: Low Procedure Risk: Intermediate Anesthetic Plan Anesthetic Plan: GA Disposition: Standard PACU
[2024-04-30] VITALS (19 sets, daily range): BP systolic 93–108; BP diastolic 47–70; PULSE 87–102; RESP 14–18; TEMP 36.3–36.6; O2SAT 89–100; BMI 20.5
--- NOTE | 2024-04-30 06:30 | PC.NURSE ---
no meds taken today
[2024-04-30] MEDS: Aprepitant 32 MG/4.4 ML VIAL IVPUSH (06:47)
[2024-04-30] MEDS: Lactated Ringers 1,000 ML 100 ML IVCONT (06:48)
[2024-04-30] MEDS: Lactated Ringers 1,000 ML 999 ML IV (06:48)
--- NOTE | 2024-04-30 07:34 | P.HPSUR_ITS ---
Pre-Procedural Eval Section A - 24 Hr Update-Section A only Date of Service: 04/30/24 The patient is an INPATIENT: Yes The patient has been examined within 24 hours of the surgical procedure. The History & Physical has been completed within 30 days and I have reviewed it.: Yes Section B - Complete if H&P > 30 days Chief Complaint: Recurrent Diaphragmatic Hernia Relevant Family History (Specify if Yes): No Relevant Social History: None Present Medications: None Medical History: No relevant PMH History of Previous Operations: Relevant previous surgery/procedure and date(s) (laparoscopic diaphragmatic hernia repair with Melodie fundoplication) Allergies: Allergies Allergy/AdvReac Type Severity Reaction Status Date / Time egg yolk Allergy Mild Unknown Verified 04/12/24 10:18 clarithromycin [From BIAXIN] Allergy Unknown SWELLING Verified 04/12/24 10:18 codeine [CODEINE] Allergy Unknown SWELLING Verified 04/12/24 10:18 egg [EGG] Allergy Unknown SWELLING Verified 04/12/24 10:18 metoclopramide [From REGLAN] Allergy Unknown SWELLING Verified 04/12/24 10:18 nortriptyline Allergy Unknown swelling Verified 04/12/24 10:18 raw eggs Allergy Mild unknown Uncoded 04/12/24 10:18 Biaxin Allergy Unknown unknown Uncoded 04/12/24 10:18 Review of Systems Sugical H&P ROS: Negative: Constitution, Cardiovascular, Respiratory, Neurological, Psychiatric, Hem-Onc, Allergic/Immunologic, Gastrointestinal, Ge nitourinary, Musculoskeletal, Integumentary, Endocrine and Eyes/Ears/Nose/Throat Exam Surgical H&P Exam: Normal: HEENT, Normal: Heart, Normal: Lungs, Normal: Extremities, Normal: Abdomen, Normal: Skin and Normal: Neurological Plan Diagnosis/Plan: Unchanged I have reviewed the history and physical and performed a pertinent physical examination on my patient. No changes have occurred unless specified. Time Spent With Patient Time: Total time managing care of this patient today ____ minutes.
[2024-04-30] MEDS: HYDROmorphone HCl 0.5 MG/0.5 ML SYRINGE 0.25 MG IVPUSH ×5 (11:27→19:50)
[2024-04-30] MEDS: ondansetron HCL 4 MG/2 ML VIAL IVPUSH (11:27)
--- NOTE | 2024-04-30 11:31 | P.DS_ITS ---
DS: Providers Provider Date of Service: 05/01/24 Date of admission: 04/30/24 06:41 Primary care physician: Jenn Coleman MD DS: Summary Hospital Course Hospital Course: ADMITTING DIAGNOSIS: diaphragmatic hernia, severe gerd, ? DISCHARGE DIAGNOSIS: same, s/p laparoscopic repair diaphragmatic hernia ? PAST SURGICAL HISTORY: andrews fundoplication, cholecystectomy, spinal fusion, TKR, appendectomy, VICTORINO ? PROCEDURE: upper endoscopy, laparoscopic repair of diaphragmatic hernia, gastropexy, lysis of adhesions ? DISCHARGE SUMMARY: ? History of Present Illness: ? The patient is a?54 year-old woman with a BMI of?20.5 kg/m2 and associated co- morbidities as described above. The patient had extensive work-up wand was electively scheduled for laparoscopic, possible open repair of diaphragmatic hernia and gastropexy. Risks and complications of the surgery were discussed with the patient in advance, particularly the possibility of , pulmonary embolism, anastomotic leak, bleeding, bowel injury, GERD, cardiac, renal or pulmonary complications. The patient understood all the risks and was in agreement with the surgical plan. ? Hospital Course: ? The patient underwent an uneventful laparoscopic repair of diaphragmatic hernia with gastropexy on the day of admission. Postoperatively, the patient was transferred to the surgical floor. The patient received IV Acetaminophen and IV dilaudid for pain control. Patient was started on bariatric phase 1 diet POD #0. On postoperative day one, the patient was feeling well without nausea, vomiting, fevers, or tachycardia. The patient had some mild incisional pain and the abdomen was soft. ? On the morning of postoperative day one, the patient was continued on 1 ounce of water or ice every half hour. During the day, the patient did fairly well, having some incisional pain, but able to ambulate adequately and to tolerate liquids well. ? Since the patient is doing well, we decided that the patient was ready to be discharged. The patient was given instructions to follow-up with me next week and to call my office for any fever over 101, persistent abdominal pain, nausea, vomiting, GERD, symptoms of DVT such as calf tenderness, or leg swelling, or pulmonary embolism such as chest pain or shortness of breath. The patient was also instructed to drink 40-60 ounces of liquids per day using the 1-ounce cups. The patient had been given prescriptions for Tylenol for pain, Zofran prn for nausea, and pantoprazole and carafate previously. The patient was encouraged to ambulate and use the incentive spirometer. The patient was allowed to shower, but no baths, and encouraged to stay active at home. All of these instructions were given to the patient personally. All questions were answered and the patient understood all instructions, the instructions were also given to the patient in print. Time Attestation Total time managing care of this patient today: 25 mintues. Discharge Coordination Time (in mins): 25 Quality: Safe Use of Opioids Does Pt have an Active Cancer Diagnosis on the Problem List?: No Quality: Stroke Does the patient have a stroke diagnosis?: No Physical Exam Vital Signs: Vital Signs: Last Vital Signs Temp 98 F 04/30/24 11:12 Pulse 96 04/30/24 11:22 Resp 16 04/30/24 11:27 BP 103/57 L 04/30/24 11:22 Pulse Ox 100 04/30/24 11:22 O2 Del Method Simple Mask 04/30/24 11:22 O2 Flow Rate 6 04/30/24 11:22 BMI result Body Mass Index 20.5 DS: Data Data Completed and Pending Pending studies at discharge: Pending at discharge 04/30/24 10:09 Surgical [PTH] Routine Labs on day of discharge: Laboratory Results - last 24 hr 04/30/24 06:41 Blood Type O Positive Antibody Screen NEGATIVE Discharge Plan Discharge Anticipated Discharge Date/Time: 05/01/24 10:00 Patient Disposition: Home, Self-Care Discharge Diagnosis: s/p laparoscopic diaphragmatic hernia repair, lysis of adhesions and gastropexy Referrals: Jenn Coleman MD [Primary Care Provider] - 1 Week Discharge Medications: Continued Trulance 3 mg tablet 3 mg PO DAILY Qty: 30 3RF estradiol 0.01 % (0.1 mg/gram) cream 0.5 g vaginal 2XW bupropion HCl 300 mg tablet extended release 24 hr 300 mg PO DAILY estradiol 2 mg tablet 2 mg PO DAILY dronabinol 10 mg capsule 10 mg PO DAILY galcanezumab-gnlm 120 mg/mL pen injector 120 mg subcut .once a month bupropion HCl 150 mg tablet extended release 24 hr 150 mg PO DAILY sumatriptan succinate 100 mg tablet 100 mg PO DAILY valacyclovir 500 mg tablet 1 mg PO DAILY alprazolam 0.5 mg tablet 0.5 mg PO DAILY pantoprazole 40 mg tablet,delayed release (DR/EC) 40 mg PO DAILY Qty: 90 0RF sucralfate 100 mg/mL suspension 10 ml PO BID Qty: 600 2RF ondansetron 4 mg tablet,disintegrating 4 mg PO Q12H Qty: 20 0RF Rx Instructions: Only take one every 12 hours as needed if you have nausea duloxetine 30 mg capsule,delayed release(DR/EC) 30 mg PO DAILY topiramate 100 mg tablet 100 mg PO BID Held cyanocobalamin (vitamin B-12) 1,000 mcg/mL solution 1,000 mcg IM Q4W Hold Instructions: Resume on 05/08/24. Gemtesa 75 mg tablet 75 mg PO DAILY Hold Instructions: Resume on 05/22/24. cyclobenzaprine 5 mg tablet 5 mg PO DAILY Hold Instructions: Resume on 05/22/24. zolpidem 10 mg tablet 10 mg PO BEDTIME Hold Instructions: Resume on 05/06/24. mprbnvfzwt-yfwormyjhsjxx-egtj 50-325-40 mg tablet 1 tab PO DAILY PRN (Reason: pain) Hold Instructions: Resume on 05/06/24. hydrochlorothiazide 50 mg tablet 25 mg PO DAILY Hold Instructions: Resume on 05/08/24. cholecalciferol (vitamin D3) [Vitamin D3] 25 mcg (1,000 unit) tablet 25 mcg PO DAILY Hold Instructions: Resume on 05/08/24. prazosin 1 mg capsule 1 mg PO DAILY Hold Instructions: Resume on 05/06/24. potassium citrate 10 mEq (1,080 mg) tablet extended release 20 meq PO TID Hold Instructions: Resume on 05/08/24. Discontinued celecoxib 200 mg capsule 200 mg PO BEDTIME omeprazole 40 mg capsule,delayed release(DR/EC) 40 mg PO DAILY polyethylene glycol 3350 17 gram/dose powder 17 g PO DAILY Qty: 238 0RF Rx Instructions: Mix each measuring cup with 8oz of water, Crystal light, or Gatorade zero, or Propel and do 7 measuring cups on 04/21/24 and another 7 measuring cups on 04/22/24 Discharge Orders: Discharge Order (Routine); Ordered 05/01/24 Ordered By: Luis Alvarez Activity on Discharge: No heavy lifting Stand Alone Forms: Patient Portal Discharge page Print Language: Polish Care Plan Goals: reduce gerd Health Concerns: gerd Plan of Treatment: No tub baths, sex or returning to work until discussed at first post op appointment. No exercise, alcohol, tobacco or illegal drug use. Continue to use incentive spirometer hourly while awake. Walk in home for 5- 10 minutes every 2 hours during the first week. Follow all instructions in the bariatric handbook and call with any questions.Discharge Instructions 1. Please call your doctor or come back to the emergency room should any new symptoms arise. 2. You will receive a courtesy call from [facility] 24-48 hours after discharge. 3. Activity: abstain from alcohol, practice limited stair climbing, no bending, no driving, no exercise, no illicit substances, no lifting, no sex, no tub bath, no work. 4. Diet: continue as discussed with Dr. Alvarez. 5. Dressing Change/Wound Care: Your incision is covered by clear bandages and guaze underneath. If the area is tender, you may apply an ice pack for short intervals (no more than 20 minutes on, followed by at least 20 minutes off). Do not apply heat. Do not use creams, lotions, or topical antibiotics unless instructed to do so by your surgeon. These can cause infection or allergic reaction. 6. Call your doctor if: - Your temperature exceeds 101.5 F - You experience excessive pain or swelling - You have an unexpected reaction to medication - You have excessive bleeding - You experience continued vomiting/nausea - Your incision begins to separate - Your incision shows signs of infection such as increased redness, swelling, excessive pain, heat, or drainage (light blood or clear fluid is normal) 7. General instructions: No lifting greater than 5 lbs for 1 week and not more than 20lbs the next 3?weeks. No driving until seen at the office in 5-7 days after surgery. If you do not move your bowels in the next 2 days, please tell?Dr. Alvarez. Please walk around your home every hour or two to prevent blood clots from forming in your legs. You do not need to wake from sleeping to walk. Please sleep in a bed or couch to prevent kinking at the hips and knees. Please take your incentive spirometer (your lung human resources office manager) home with you and use it for the next few days to prevent pneumonia. You may shower, no hot tubs, baths or swimming pools.?Please follow the post op diet instructions you are?given by Dr Alvarez? and text me daily at 5-6pm for an update.?If you have any issues or concerns or questions please communicate this to him via text.? The Celebrate shakes have all of the bariatric vitamins you need if you consume these shakes. If you are drinking other protein shakes, you will need to purchase the Celebrate multivitamins and calcium that are available in the hospital gift shop on the first floor of the [facility].??Do not take anything without first discussing with Dr Alvarez. Please make sure you are consuming at least 40 ounces of fluids per day starting the?day AFTER your discharge from the hospital. Always drink 1-2 ml per minute using the 5ml?syringe. If you drink faster you may experience?bloating,?gas pain, burping, nausea or heartburn. In that case please slow down your pace and use the syringe to?understand better the?proper?pace and volume of drinking. Do not hesitate to contact the office with any questions at . The patient's medical history has been reviewed and they are considered low risk for post op DVT and therefore DVT prophylaxis is not considered necessary. Travel after surgery was reviewed. The patient has not disclosed any travel plans during the first 30 days after surgery and they have been advised that within the first 30 days after surgery any bus, plane, train or car travel over 2 hours in duration is contraindicated due to the possibility of developing blood clots from immobility. Any travel, needs to include periods of ambulation of 10 minutes in duration every 2 hours.? The patient was instructed to discuss any plans for travel during this period with their bariatric surgeon. Assessment: stable s/p laparoscopic diaphragmatic hernia repair, lysis of adhesions and gastropexy Discharge Date/Time: 05/01/24 12:41
--- NOTE | 2024-04-30 11:32 | P.BOP_ITS ---
Brief Operative Note Date of Service: 04/30/24 Pre-op diagnosis: Recurrent diaphragmatic hernia, GERD, gastroparesis, nausea, with associated comorbidities including horseshoe kidney, insomnia, migraines, anxiety, DJD, Herpes Post-op diagnosis: same Procedure: Date of Service: 04/30/24 Pre-op diagnosis: Recurrent diaphragmatic hernia Post-op diagnosis: same (Recurrent giant diaphragmatic hernia & abdominal adhesions) Procedure: Procedure: COMORBIDITIES: D, gastroparesis, nausea, with associated comorbidities including horseshoe kidney, insomnia, migraines, anxiety, DJD, Herpes ?INDICATIONS: The patient is a 54 year old female who was referred to me from Dr. Santana for a recurrent diaphragmatic hernia and GERD confirmed by EGD and UGI. The patient had a previous diaphragmatic hernia with a Melodie fu ndoplication at [facility] approximately 20 years ago. The patient is scheduled today for redoodiaphragmatic hernia repair. Risks of recurrent hernia, dysphagia, persistent GERD, VTE, leak, infection and bleeding were discussed with the patient and he is in agreement with the plan. PROCEDURE: Esophago-gastroscopy, laparoscopic lysis of adhesions, laparoscopic repair of recurrent incarcerated diaphragmatic hernia and laparoscopic gastropexy. UNIQUELY DIFFICULT CASE DUE TO THE PREVIOUS DIAPHRAGMATIC HERNIA REPAIR WITH MELODIE, LARGE SIZE RECURRENT HERNIA AND AND EXTENSIVE INTRA- ABDOMINAL ADHESIONS DESCRIPTION OF PROCEDURE: After informed consent was obtained from the patient, the patient was given preoperative antibiotics, and was transferred to the operating room. After successful induction of general anesthesia, a Dong catheter and pneumatic compression devices were placed on both lower extremities. An upper endoscopy was performed next. The oropharynx and upper esophagus finn eared to be within normal limits. After all fluid and air were suctioned and the stomach was fully decompressed, the scope was withdrawn and secured in the mid esophagus. The patient was then prepped and draped in the usual sterile manner. Because of the previous open cholecystectomy through an upper midline incision, abdominal access was established at the left upper quadrant with the Veress needle. The abdomen was insufflated with CO2 to a pressure of 15 mmHg and a 5 mm Versi step port was placed at the left mid-abdomen. Under direct visualization, the Veress needle was removed and there was no injury where it was placed. It was exchanged with a 5 mm Versi-step port. An additional extra 5 mm Versi-step port was placed to the left of the umbilicus. Following that additional ports were placed, specifically two 5 mm Versi-step ports to the left upper and right upper quadrant, and a 12 mm Versi-Step port to the right upper quadrant. 1% lidocaine plain was used to infiltrate all port si dory as well as all fascia defects. Following that, the patient was placed in a steep reverse Trendelenburg position. An additional 5 mm port was placed to the right flank for the Mediflex retractor that was used to retract the left lobe of the liver. There was a giant recurrent diaphragmatic hernia with the entire Melodie wrap herniated into the chest next to the esophagus. There were adhesions between the undersurface of the left lobe of the liver and the Melodie wrap. Those were lysed carefull and completely with the Thunderbeat and the Melodie wrap was completely freed from the liver. I continued to dissect in that place anteriorly between the Melodie wrap and the anterior hiatus and mediastinum. A good plane was found and the Melodie wrap and esophagus was freed into the mediastinum. I continue laterally towards the angle of His ang the left gracy was identified and it was preserved along with its peritoneum. There was some greater omentum adherent to the angle of His and diaphragm. That was freed completely. I then opened the adhesions at the gastrocolic ligament between the transverse colon and the greater curvature of the stomach with the ultrasonic device to enter the lesser sac and freeing all the adhesions from the ligation of the short gastric vessels made at the previous operation. Some posterior gastric attachments and short gastric vessels were not adequately dissected at the previous operation and I did so in this operation. There was an obvious significant-sized recurrent hiatal hernia. The stomach was incarcerated into the mediastinum with multiple thick adhesions. Mobilization of the stomach was very difficult and required tedious and careful dissection. I continued dissecting along the hiatus toward the left gracy into the mediastinum mobilizing the hernia sac from the mediastinum. The esophagus was dissected off the aorta. The pars flaccida was opened. It was atually herniated into the hernia defect. The vena cava was identified and it was carefully protected. I then continued by dissecting even further into the posterior retro-esophageal space all the way to the angle of His. There was a vessel running along the lesser curvature of the stomach originating from the diaphragm which was preserved. I continued to mobilize the esophagus into the mediastinum circumferentially. I identified one suture posterior from the esophagus from the previous operation which was divided and a portion of it was sent to Pathology for confirmation. The esophagus was densely adhrent to the aorta and the majority of these adhesions were mobilized. None of the vagal nerves were seen but during this procedure no strucures were divided except from transparent tissue that you could see through.. With extensive circumferential dissection into the mediastinum, I was able to bring the GE junction at least 3cm below the crura and the Melodie wrap was now well into the abdomen. I did an endoscopy confirming that there was no injury or ischemia at the eso phagus or GE junction. In addition I confirmed that the GE junction was sitting comfortably 3-4 cm into the abdomen and there was no narrowing at the area of the wrap. The stomach was decompressed and the endoscope was withdrawn into the esophagus. I inspected the wrap. It appeared that the wrap was partially undone. There was no circumferential wrap and I could easily pull the fundus laterally. This finding along with the endoscopic picture, I decided that there would be no benefit to undo the wrap completely. . I closed the hernia defect with four interrupted #0 Surgidac sutures using the Endo Stitch device, two of which were placed posterior and two of which anterior to the esophagus. ? A gastropexy was then performed in order to prevent postoperative GERD and partial gastric volvulus. Two interrupted 2.0 Surgidac sutures were placed between the greater curvature of the dissected stomach and the previously divided greater omentum and gastro-colic ligament using the Endo-Stitch device. ?An upper endoscopy was performed. There was no narrowing at the GE junction or any esophageal injury. The scope was easily advanced all the way to the pylorus which was clearly visualized. There was no narrowing anywhere. I confirmed that the GE junction was 3cm intra-abdominally. At that point the gastroscope was withdrawn from the patient?s mouth while we were decompressing the bowel and the stomach from any remaining air. I looked into the lesser sac to see how the stomach was situating and it was situating well. There was no bleeding from the, spleen, or short gastric vessels. The Mediflex retractor was removed, and the undersurface of the liver was inspected and there was no bleeding. The patient was placed in supine position. Then 30cc of Ropivacaine plain with 10 mg of Dexamethasone were used to infiltrate the fascial closure as well as all skin incisions. At this point, the abdomen was deflated, all ports were removed under direct vision, and no bleeding was noted from any of the port sites. The skin incisions were irrigated with saline and were closed with 4-0 absorbable monofilament sutures. Steri- Strips and OpSites were used to cover all incisions. The patient was extubated and was transferred in stable condition to the recovery room for further care. I was present and performed all khalil parts of the procedure. Mr. Yanes was the rn first assistant. There were no residents to assist with this case. Guillermo Alvarez MD, PhD, FACS Surgeon: Luis Alvarez MD Anesthesia: GETA, local and other (TAP block) Was an Branch Account Manager used for this Procedure?: No Branch Account Manager: Tobi Yanes Estimated blood loss (mL): 10 IV fluids (mL): 3,000 Urine output (mL): 400 Pathology: other (foreign body probably suture) Condition: stable Disposition: PACU
--- NOTE | 2024-04-30 12:12 | PM.PNGS ---
Subjective Subjective Date of Service: 05/01/24 Interval history: Feels well. Mild incisional pain. She is tolerating phase 1 bariatric diet Physical Exam Vital Signs: Vital Signs: Last Vital Signs Temp 98 F 04/30/24 11:12 Pulse 92 04/30/24 12:06 Resp 18 04/30/24 12:06 BP 103/47 L 04/30/24 12:06 Pulse Ox 96 04/30/24 12:06 O2 Del Method Room Air 04/30/24 11:57 O2 Flow Rate 4 04/30/24 11:37 BMI result Body Mass Index 20.5 GI: Inspection: Yes normal to inspection and Yes incision (clean, dry and intact) Palpation (GI): Soft to palpation Extrem: Right lower extremity: normal to inspection (no calf tenderness) Left lower extremity: normal to inspection (no calf tenderness) Objective Data Active Medications Hydromorphone HCl (Hydromorphone Hcl 0.5 Mg/0.5 Ml Syringe) 0.25 mg IVPUSH Q5M PRN PRN Reason: Pain, Moderate to Severe (Pain Scale 4-10) Stop: 04/30/24 14:11 Last Admin: 04/30/24 12:03 Dose: 0.25 mg Documented By: GARTH Lactated Ringer's (Lr) 1,000 mls @ 100 mls/hr IVCONT .Q10H [facility] [place] Last Admin: 04/30/24 06:48 Dose: 100 mls/hr Documented By: KAREEN Naloxone HCl (Naloxone Hcl 0.4 Mg/Ml Vial) 0.04 mg IVPUSH Q5M PRN PRN Reason: Excessive sedation or RR < 8 Labs 05/01/24 05:26 04/30/24 12:52 Labs: Laboratory Results - last 24 hr 04/30/24 06:41 Blood Type O Positive Antibody Screen NEGATIVE Procedures Date of Service Date of Service: 05/01/24 Progress Note: A&P Assessment and plan (1) History of repair of hiatal hernia: Status: Acute Assessment and Plan: s/p laparoscopic lysis of adhesions, diaphragmatic hernia repair and gastropexy Doing well Will check am labs and if OK the patient will be discharged home (2) S/P laparoscopy with lysis of adhesions: Status: Acute (3) Intra-abdominal adhesions: Status: Acute (4) Insomnia: Status: Acute (5) Migraines: Status: Acute (6) Paraesophageal hernia: Status: Acute (7) GERD without esophagitis: Status: Acute (8) Gastroparesis: Status: Acute (9) Anxiety: Status: Acute (10) DJD (degenerative joint disease): Status: Acute (11) Herpes: Status: Acute Time Spent With Patient Time: Total time managing care of this patient today ____ minutes. Quality Stroke Does the patient have a stroke diagnosis?: No VTE Prior VTE?: No VTE Risk Level:: Surgical - moderate VTE Device Contraindication: N/A - Device Ordered VTE Drug Contraindication: Treatment Not Indicated
[2024-04-30 13:02] LABS: Hematocrit 37.1 % (37.0-47.0); Hemoglobin 12.9 g/dl (12.0-16.0)
--- NOTE | 2024-04-30 13:16 | PHA.MEDREC ---
Pharmacy Consult ? Medication Reconciliation Pharmacy has reviewed the medication reconciliation completed by nursing. Spoke with patient to confirm she is on Buproprion is 450mg daily, Celebrex 200mg at bedtime, pt takes Estradiol 0.5g vaginal tablets 2 times a week, and and Gemtasa 75 mg daily.
[2024-04-30 13:26] LABS: Anion Gap 14 (12-20); Blood Urea Nitrogen 11 mg/dL (9-16); Calcium 8.3 mg/dL (8.4-10.2); Carbon Dioxide 24 mmol/L (22-29); Chloride 104 mmol/L (96-108); Creatinine Clr Calc Pharmacy 71.7; Estimated Glomerular Filt Rate > 60; Glucose Random 162 mg/dL (60-115); Potassium 4.4 mmol/L (3.3-5.1); Sodium 138 mmol/L (135-145)
[2024-04-30] MEDS: Lactated Ringers 1,000 ML 125 ML IVCONT ×2 (14:08→21:36)
[2024-04-30] MEDS: ceFAZolin Sodium/Dextrose,Iso 2 GM/50 ML PIGGYBACK IV (14:14)
[2024-04-30] MEDS: Acetaminophen 1,000 MG/100 ML PIGGYBACK 16.7 MG IV ×2 (14:15→19:52)
[2024-04-30] MEDS: Topiramate 100 MG TABLET PO (19:50)
[2024-04-30] MEDS: Zolpidem Tartrate 5 MG TABLET 10 MG PO (19:50)
[2024-04-30] MEDS: Famotidine/PF 20 MG/2 ML VIAL IVPUSH (19:50)
[2024-05-01] VITALS: BP 116/65; PULSE 78; RESP 15; TEMP 37; O2SAT 98
[2024-05-01] MEDS: Acetaminophen 1,000 MG/100 ML PIGGYBACK 16.7 MG IV ×2 (01:44→07:27)
[2024-05-01 04:00] VITALS: BP 103/59; PULSE 96; RESP 15; TEMP 36.7; O2SAT 97
[2024-05-01] MEDS: HYDROmorphone HCl 0.5 MG/0.5 ML SYRINGE 0.25 MG IVPUSH (04:14)
[2024-05-01] MEDS: Lactated Ringers 1,000 ML 125 ML IVCONT (05:47)
[2024-05-01 06:58] LABS: MANUAL DIFF FLAG NO
[2024-05-01 07:10] LABS: Basophils Absolute Auto 0.1 X10*3/uL (0.0-0.2); Basophils Percent Auto 0.4 % (0-2); Eosinophils Percent Auto 0.2 % (0-4); Hematocrit 35.7 % (37.0-47.0); Hemoglobin 12.4 g/dl (12.0-16.0); Imm Gran Abs Auto 0.06 X10*3/uL (0.00-0.03); Imm Gran Pct Auto 0.5 % (0.0-0.4); Lymphocytes Absolute Auto 1.4 X10*3/uL (1.2-4.9); Lymphocytes Percent Auto 11.3 % (20-40); Mean Corpuscular HGB Conc 34.7 g/dl (31.0-35.0); Mean Corpuscular Hemoglobin 31.7 pg (27.0-33.0); Mean Corpuscular Volume 91.3 fL (80.0-98.0); Mean Platelet Volume 9.8 fL (9.4-12.3); Monocytes Percent Auto 7.9 % (2-11); Neutrophils Absolute Auto 9.8 x10*3/uL (2.0-8.3); Neutrophils Percent Auto 79.7 % (45-73); Platelet Count 211 X10*3/uL (160-400); Red Blood Count 3.91 X10*6/uL (4.20-5.50); Red Cell Distribution Width 11.9 % (11.0-16.0); White Blood Count 12.3 X10*3/uL (4.8-10.8)
[2024-05-01] MEDS: Famotidine/PF 20 MG/2 ML VIAL IVPUSH (07:28)
[2024-05-01 07:39] VITALS: BP 103/59
[2024-05-01] MEDS: DULoxetine HCl 30 MG CAPSULE.DR PO (07:39)
[2024-05-01] MEDS: Topiramate 100 MG TABLET PO (07:39)
[2024-05-01] MEDS: ALPRAZolam 0.5 MG TABLET PO (07:39)
[2024-05-01] MEDS: Prazosin HCL 1 MG CAPSULE PO (07:39)
[2024-05-01] MEDS: buPROPion HCl XL 300 MG TAB.ER.24H PO (07:39)
[2024-05-01 07:40] VITALS: BP 122/65; PULSE 78; RESP 18; TEMP 36.6; O2SAT 99
[2024-05-01 07:45] LABS: Anion Gap 13 (12-20)
[2024-05-01 07:48] LABS: Blood Urea Nitrogen 8 mg/dL (9-16); Calcium 8.4 mg/dL (8.4-10.2); Carbon Dioxide 23 mmol/L (22-29); Chloride 107 mmol/L (96-108); Glucose Random 73 mg/dL (60-115); Potassium 3.9 mmol/L (3.3-5.1); Sodium 139 mmol/L (135-145)
[2024-05-01 08:05] LABS: Creatinine Clr Calc Pharmacy 76.6; Estimated Glomerular Filt Rate > 60
[2024-05-01 08:11] VITALS: O2SAT 99
--- NOTE | 2024-05-01 08:37 | MHC.CM.PN ---
IMM DELIVERED PT LIVES WITH S/O AND IS INDEPENDENT AT BASELINE. PT STATES SHE HAS FAMILY/FRIEND SUPPORT. +COPY OF HCP AT HOME NAMING HER SON. PCP DR. LOPEZ DP: PT HAS BEEN MEDICALLY CLEARED FOR DC HOME, NO SERVICES. PT HAS OWN RIDE HOME AT 10 AM
== END 2024-05-01 12:41 | disposition home or self-care (01) | DRG 328 ==
LOC: HO.SSSA 06:42 → HO.S3 11:35
PROVIDERS: Physician Assistant Surgical; Admitting Provider Surgery; PCP Internal Medicine; Visit Provider Surgery
PROC: 0BQT4ZZ Repair Diaphragm, Percutaneous Endoscopic Approach (ICD-10-PCS; CPT 43281; principal; 2024-04-30 07:30)
DX: K44.9 Diaphragmatic hernia without obstruction or gangrene (principal); G43.909 Migraine, unspecified, not intractable, without status migrainosus; K21.9 Gastro-esophageal reflux disease without esophagitis; F41.9 Anxiety disorder, unspecified; Z79.899 Other long term (current) drug therapy
CPT/HCPCS: 43281; 43659; 36415; 80048; 80053; 83036; 84443; 85014; 85018; 85025; 85610; 85730; 86850; 86900; 86901; 88300; 93005; 96361; 96365; 96366; 96367; 96375; 96376; A4649; C9145; J0131; J0690; J1100; J1170; J1596; J2250; J2371; J2405; J2704; J2795; J3010; J7120

== ENCOUNTER → 2024-04-30 06:41 | Outpatient (BNV) | payer MEDICARE, MEDICAID, SELFPAY | PROVIDERS: Admitting Provider Surgery; PCP Internal Medicine; Visit Provider Surgery | DX: K44.0 Diaphragmatic hernia with obstruction, without gangrene (principal) | CPT/HCPCS: 43281; 99024 ==

== ENCOUNTER 2024-05-04 13:15 | Inpatient (IN) | payer MEDICARE, MEDICAID, SELFPAY ==
[2024-05-04] VITALS (7 sets, daily range): BP systolic 121–149; BP diastolic 43–84; PULSE 80–92; RESP 12–18; TEMP 36.4–37; O2SAT 98–99; BMI 21.0
--- NOTE | ~2024-05-04 | US_ITS ---
EXAMINATION: US TRIPLEX LOWER EXTREMITY, BILATERAL CLINICAL INFORMATION: Calf pain COMPARISON: None available. TECHNIQUE: Color-flow triplex imaging with spectral analysis and compression Doppler were performed on the bilateral lower extremities. FINDINGS: Respiratory variation, normal compression and augmented flow are noted throughout the bilateral lower extremities. The visualized common femoral vein, superficial femoral vein, profunda femoral vein, popliteal vein and midcalf peroneal and posterior tibial venous segments show no evidence of deep venous thrombosis bilaterally. There is no Cartagena's cyst. US/US venous duplex LE BI IMPRESSION: No evidence of deep venous thrombosis involving the bilateral lower extremities. Electronically signed by: Kerwin Amado MD 05/04/2024 04:00 PM EDT
--- NOTE | ~2024-05-04 | CT_ITS ---
EXAMINATION: CT CHEST, ABDOMEN, AND PELVIS WITH CONTRAST CLINICAL INFORMATION: Abdominal pain and bilateral shoulder pain status post diaphragmatic hernia repair 5 days prior. COMPARISON: No prior chest CT. CT scans of the abdomen and pelvis dating between June 09, 2019 and July 04, 2017. TECHNIQUE: Multidetector volumetric CT imaging of the chest, abdomen, and pelvis was obtained after the administration of 85 mL of Omnipaque 350 intravenous contrast without immediate adverse reactions. Axial MIP volume rendering provided. Sagittal and coronal reformatted images were obtained. This CT examination was performed using dose optimization techniques as appropriate, variously including the following: *Automated exposure control *Adjustment of mA and/or kV according to patient size (this includes techniques or standardized protocols for targeted exams where dose is matched to indication/reason for exam; i.e. extremities or head) *Use of iterative reconstruction technique DLP: 540 mGy-cm FINDINGS: LUNGS/PLEURA: Small to moderate bilateral hydropneumothoraces with mild associated dependent atelectasis. No focal infiltrate or suspicious nodule identified. Patent central bronchi. MEDIASTINUM: Mild pneumomediastinum. CORONARY ARTERY CALCIFICATION: None. CHEST WALL/AXILLA: Bilateral anterior chest wall subcutaneous emphysema. No lymphadenopathy by size criteria. LIVER, GALLBLADDER, AND BILIARY TREE: The liver appears unremarkable in size, shape, and attenuation. No focal hepatic lesion is appreciated. Status post cholecystectomy. Mild intra and extrahepatic biliary ductal dilation to the level of the ampulla. Common bile duct measures up to approximately 1.3 cm in diameter. No stone or mass directly visualized at the ampulla. PANCREAS: Unremarkable SPLEEN: Punctate calcified splenic granuloma. ADRENAL GLANDS: Unremarkable KIDNEYS AND URETERS: Horseshoe kidney. Renal parenchyma enhances homogeneously throughout. No hydronephrosis, hydroureter, or calculi seen. BLADDER: Unremarkable GASTROINTESTINAL TRACT: Question small hiatus hernia versus thickening of the wall the gastroesophageal junction versus postoperative changes (for example, image 47, series 3). Multiple loops of mildly dilated large and small bowel suggesting ileus. Diverticulosis predominantly involving the sigmoid colon without obvious evidence of diverticulitis. PERITONEAL CAVITY: Hydropneumoperitoneum. ABDOMINAL WALL: No significant hernia is appreciated. LYMPH NODES: No evidence of adenopathy by size criteria. VASCULAR: Unremarkable. PELVIC VISCERA: Status post hysterectomy. OSSEOUS STRUCTURES: Disc spacing device at L5-S1, with surgical clips anterior to the spine at this level. CT/CT abdomen pelvis w IV con IMPRESSION: Question small hiatus hernia versus thickening of the wall the gastroesophageal junction versus postoperative changes. Hydropneumoperitoneum. Small to moderate bilateral hydropneumothoraces with mild associated dependent atelectasis. Mild pneumomediastinum. Bilateral anterior chest wall subcutaneous emphysema. Although these findings may simply be related to recent prior surgery, perforated viscus cannot be excluded entirely. Recommend clinical correlation and follow-up as clinically indicated. Multiple loops of mildly dilated large and small bowel suggesting ileus. Status post cholecystectomy. Mild intra and extrahepatic biliary ductal dilation to the level of the ampulla. Common bile duct measures up to approximately 1.3 cm in diameter. No stone or mass directly visualized at the ampulla. Additional findings, as above. Dr. Goldberg was directly informed of the findings by telephone at approximately 5:50 PM on May 04, 2024. Electronically signed by: Pb Monge MD 05/04/2024 05:51 PM EDT
--- NOTE | 2024-05-04 13:28 | ED_ITS ---
HPI - General Adult General Chief complaint: Chest Pain Stated complaint: both shoulder pain surgery 04/30 Time Seen by Provider: 05/04/24 14:59 Source: patient Mode of arrival: ambulatory Limitations: no limitations History of Present Illness ED Provider: Dr. Andrew Mccallum HPI narrative: 54-year-old female with a history of degenerative joint disease, anxiety, insomnia, migraine headaches, GERD, gastroparesis who had a laparoscopic diaphragmatic redo surgery on 04/30/[address] Alvarez who presents emergency department for evaluation of chest pain, bilateral shoulder, abdominal pain and bilateral thigh pain. Patient states that she has been having severe GERD for 3 weeks which was felt to be secondary to her diaphragmatic hernia. Patient states that after the surgical procedure she did developed bilateral shoulder pain. She states her pain is 10/10. She states that she was also developed pain in both of her thighs. Patient states that her abdominal pain caused by her GERD has not improved. She states over the last 3 weeks she has not been able to eat and since the surgery she has been advised to stay on small amounts of liquid and so she has had no food to eat for several weeks. Patient was referred to the emergency department by her surgeon, Dr. Alvarez. He was here in the emergency department and we did discuss the patient's presentation, he recommended getting CT scan of the chest abdomen pelvis with IV contrast and bilateral duplex ultrasounds on his patient. Related Data Home Medications ?Medication ?Instructions ?Recorded ?Confirmed cyclobenzaprine 5 mg tablet 5 mg PO DAILY muscle relaxer 02/11/21 04/30/24 estradiol 2 mg tablet 2 mg PO DAILY 02/11/21 04/30/24 dronabinol 10 mg capsule 10 mg PO DAILY 10/19/21 04/30/24 prazosin 1 mg capsule 1 mg PO DAILY 10/19/21 04/30/24 alprazolam 0.5 mg tablet 0.5 mg PO DAILY 01/17/22 04/30/24 valacyclovir 500 mg tablet 1 mg PO DAILY 01/17/22 04/30/24 tmpqdghzro-fqvuhqnoqfgnb-jtxplmdl 1 tab PO DAILY PRN pain 06/27/22 04/30/24 50 mg-325 mg-40 mg tablet galcanezumab-gnlm 120 mg/mL 120 mg subcut .once a month 06/27/22 04/30/24 subcutaneous pen injector potassium citrate 10 mEq (1,080 20 meq PO TID 06/27/22 04/30/24 mg) tablet,extended release sumatriptan succinate 100 mg tablet 100 mg PO DAILY 06/27/22 04/30/24 zolpidem 10 mg tablet 10 mg PO BEDTIME 06/27/22 04/30/24 cholecalciferol (vitamin D3) 25 25 mcg PO DAILY 01/30/23 04/30/24 mcg (1,000 unit) tablet (Vitamin D3) hydrochlorothiazide 50 mg tablet 25 mg PO DAILY 01/30/23 04/30/24 bupropion HCl 150 mg 24 hr tablet, 150 mg PO DAILY 10/09/23 04/30/24 extended release duloxetine 30 mg capsule,delayed 30 mg PO DAILY 10/09/23 04/30/24 release topiramate 100 mg tablet 100 mg PO BID 10/09/23 04/30/24 bupropion HCl 300 mg 24 hr tablet, 300 mg PO DAILY 04/30/24 04/30/24 extended release cyanocobalamin (vitamin B-12) 1,000 mcg IM Q4W 04/30/24 04/30/24 1,000 mcg/mL injection solution estradiol 0.01% (0.1 mg/gram) 0.5 g vaginal 2XW 04/30/24 04/30/24 vaginal cream vibegron 75 mg tablet (Gemtesa) 75 mg PO DAILY 04/30/24 04/30/24 Previous Rx's ?Medication ?Instructions ?Recorded plecanatide 3 mg tablet (Trulance) 3 mg PO DAILY #30 tabs 02/01/24 ondansetron 4 mg disintegrating 4 mg PO Q12H nausea and vomiting 04/12/24 tablet #20 tabs pantoprazole 40 mg tablet,delayed 40 mg PO DAILY #90 tabs 04/12/24 release sucralfate 100 mg/mL oral 10 ml PO BID #600 mL 04/12/24 suspension Allergies Allergy/AdvReac Type Severity Reaction Status Date / Time egg yolk Allergy Mild Unknown Verified 05/04/24 13:31 clarithromycin [From BIAXIN] Allergy Unknown SWELLING Verified 05/04/24 13:31 codeine [CODEINE] Allergy Unknown SWELLING Verified 05/04/24 13:31 egg [EGG] Allergy Unknown SWELLING Verified 05/04/24 13:31 metoclopramide [From REGLAN] Allergy Unknown SWELLING Verified 05/04/24 13:31 nortriptyline Allergy Unknown swelling Verified 05/04/24 13:31 raw eggs Allergy Mild unknown Uncoded 05/04/24 13:31 Biaxin Allergy Unknown unknown Uncoded 05/04/24 13:31 Review of Systems 2 Review of Systems: Yes all other systems are reviewed and are negative PMFSH Past Medical History Medical History (Updated 05/04/24 @ 16:45 by Andrew Mccallum MD) Herpes DJD (degenerative joint disease) Anxiety Insomnia Migraines Epigastric abdominal pain Hypoglycemia Surgical History (Updated 04/30/24 @ 11:37 by MISSAEL Apodaca) Hx of cholecystectomy Hx of spinal fusion History of fundoplication Hx of total knee replacement H/O cataract removal with insertion of prosthetic lens Hx of appendectomy History of carpal tunnel release Hx of eye surgery Hx of bladder repair surgery History of repair of hiatal hernia Hx of abdominal hysterectomy Hx of fusion of cervical spine Hx of endoscopy History of colonoscopy Family History Family History Father History of cancer Mother Hx of heat stroke Social History Social History Household Members: Spouse Housing: House Do you presently have visiting nurse or other home services: No Alcohol intake: current Alcohol intake frequency: holidays/special occasions only Patient Tobacco Use Status: Former Tobacco user Smoked in Last 30 Days: No Use of substances other than those prescribed or required for medical reasons: No Substance Use Type: Marijuana Advance Directives: Yes Advance Directives on File: Yes Advance Directives Date on File: 05/11/20 Do you have a plan to hurt others: No Plan Patient : No service: No Physical Exam ED Vital Signs: Vital Signs - 24 hr 05/04/24 13:18 05/04/24 15:21 05/04/24 16:41 Temperature 98.6 F 98.5 F Pulse Rate 92 92 Respiratory Rate 16 18 16 Blood Pressure 149/84 H 130/80 Pulse Oximetry 98 99 Oxygen Delivery Method Room Air Room Air 05/04/24 16:58 05/04/24 18:37 Temperature Pulse Rate 82 Respiratory Rate 14 16 Blood Pressure 130/84 Pulse Oximetry 99 Oxygen Delivery Method Room Air BMI result Body Mass Index 21.0 Vital signs revealed an elevated blood pressure otherwise unremarkable Exam: General: Awake, alert in no distress, strong ketotic odor to her breath Head: Normocephalic, atraumatic EENT: PERRL, Lids normal, sclera normal, conjunctiva normal, nose normal , ears normal, throat without erythema or exudates Neck: Supple, no adenopathy Lung: breath sounds symmetric, no wheezing, rales or rhonchi Chest: symmetric movement, nontender Heart: regular rate and rhythm, normal S1, S2 no murmurs or rubs Abdomen: soft, moderate suprapubic and epigastric tenderness, no rebound, no voluntary or involuntary guarding. Laparoscopic dressings are in place, there is no drainage noted on the dressings, there is no erythema around the dressings Back: no vertebral tenderness, no CVAT Extremities: no deformities, moves all extremities symmetrically Neuro: Awake, alert, oriented, normal speech, cranial nerves intact, moves all extremities symmetrically Psych: Pleasant, cooperative Course Course Course Narrative: This is an RME: Additional HPI, ROS, PE not included below will be deferred to primary provider. RME assessment and note performed by: Ro Kelley PA-C This is a 18-tpwi-yrr-female, with a hx of recent laparoscopic lysis of adhesions - diaphragmatic hernia repair and gastropexy on 04/30, GERD, gastroparesis, anxiety. DJD, who presents to the ER with complaints of BL shoulder pain and BL leg pain. She also reports headache and frequent nosebleeds. She is not on blood thinners. She also endorses some chest pain. Plan: Labs, EKG, further ER eval needed. Reevaluation(s) Reevaluation #1: the case was discussed with Dr. Alvarez and CT was reviewed, patient will be admitted for IV hydration patient is unable to tolerate p.o. intake for the past 2 weeks. Will be admitted to Dr. Alvarez's service. Time: 19:40 Medications Administered Generic Name Dose Route Start Last Admin Trade Name Freq PRN Reason Stop Dose Admin Dextrose/Sodium Chloride 1,000 mls @ 125 mls/hr 05/04/24 16:30 05/04/24 17:01 D5ns IVCONT 125 mls/hr .Q8H DANIEL Administration Acetaminophen 1,000 mg in 100 mls @ 16.7 mls/hr 05/04/24 19:30 05/04/24 19:36 Ofirmev IV 16.7 mls/hr .Q6H DANIEL Administration Discontinued Medications Generic Name Dose Route Start Last Admin Trade Name Freq PRN Reason Stop Dose Admin Diphenhydramine HCl 12.5 mg 05/04/24 16:30 05/04/24 17:00 Diphenhydramine Hcl 50 Mg/Ml Vial IVPUSH 05/04/24 16:31 12.5 mg ONCE ONE Administration Famotidine 20 mg 05/04/24 19:22 05/04/24 19:36 Famotidine/Pf 20 Mg/2 Ml Vial IVPUSH 05/04/24 19:23 20 mg ONCE ONE Administration Hydromorphone HCl 1 mg 05/04/24 15:12 05/04/24 15:21 Hydromorphone Hcl 1 Mg/Ml Syringe IVPUSH 05/04/24 15:13 1 mg ONCE STA Administration Protocol Hydromorphone HCl 1 mg 05/04/24 16:30 05/04/24 16:58 Hydromorphone Hcl 1 Mg/Ml Syringe IVPUSH 05/04/24 16:31 1 mg ONCE STA Administration Protocol Sodium Chloride 1,000 mls @ 999 mls/hr 05/04/24 15:12 05/04/24 16:46 Ns IV 05/04/24 16:12 Infused .Q1H1M STA Infusion Iohexol 100 ml 05/04/24 16:40 05/04/24 16:40 Iohexol 350 Mg/Ml 100 Ml Infus..Btl IV 05/04/24 16:41 85 ml ONCE ONE Administration Ondansetron HCl 4 mg 05/04/24 15:12 05/04/24 15:21 Ondansetron Hcl 4 Mg/2 Ml Vial IVPUSH 05/04/24 15:13 4 mg ONCE ONE Administration Medical Decision Making Medical Decision Making MDM Narrative: 54-year-old female with a history of degenerative joint disease, anxiety, insomnia, migraine headaches, GERD, gastroparesis who had a laparoscopic diaphragmatic redo surgery on 04/30/[address] Alvarez who presents emergency department for evaluation of chest pain, bilateral shoulder, abdominal pain and bilateral thigh pain. Vital signs were unremarkable. Physical examination did reveal ketotic odor to her breath consistent with starvation ketosis and suprapubic and epigastric abdominal tenderness Differential diagnosis: ?Includes but is not limited to pneumothorax, pneumonia, gastritis, peptic ulcer disease, pancreatitis, bilateral DVTs Patient was initially treated with the following: IV insert, normal saline x1 L, Dilaudid 1 mg IV Course: 16:22 My interpretation patient's laboratory evaluation as follows: WBCs normal 5600 with a normal H&H of 13.6 and 38.6. Platelet count was normal 217,000. Coags were normal. Chloride elevated 109, bicarb low 18, anion gap normal at 18. Low bicarb is most likely secondary to starvation ketosis especially given ketotic breath. BUN creatinine were normal. LFTs were normal. Troponin was below detectable limits. Lipase was normal. Duplex ultrasounds revealed no blood clots which is reassuring. CT scan of the abdomen pelvis is pending. Patient got temporary relief of her pain with the above treatment therefore I ordered Dilaudid 1 mg IV with Benadryl 12.5 mg IV. Patient was also ordered a D5 lactated Ringer's at 125 cc/hours. Given the patient's ketosis and inability to eat I do not think that she should be discharged home however CT scan of the chest abdomen pelvis are pending and the patient's care was turned over to my colleague, Dr. Goldberg. Admission/Observation Consideration of admission/observation: Escalation of care including admission/observation considered (Yes) Consult Healthcare Provider Management of the patient was discussed with: [employer] (Dr. Alvarez) My independent interpretation the patient's 12 EKG done at 13:59 hours is as follows: Normal sinus rhythm rate of 87, normal UT interval, QRS duration QTC interval, no ST segment elevation, no ST segment depression, no PACs, no PVCs- this is a normal EKG Lab Data [facility] Lab Attestation statement: I reviewed the patient's lab results. 05/04/24 14:19 05/04/24 14:19 Labs: Lab Results 05/04/24 Range/Units 14:19 WBC 5.6 (4.8-10.8) X10*3/uL RBC 4.28 (4.20-5.50) X10*6/uL Hgb 13.6 (12.0-16.0) g/dl Hct 38.6 (37.0-47.0) % MCV 90.2 (80.0-98.0) fL MCH 31.8 (27.0-33.0) pg MCHC 35.2 H (31.0-35.0) g/dl RDW 12.0 (11.0-16.0) % Plt Count 217 (160-400) X10*3/uL MPV 8.4 L (9.4-12.3) fL Immature Gran % (Auto) 0.2 (0.0-0.4) % Neut % (Auto) 68.5 (45-73) % Lymph % (Auto) 17.4 L (20-40) % [place] % (Auto) 7.7 (2-11) % Eos % (Auto) 5.7 H (0-4) % Baso % (Auto) 0.5 (0-2) % Lymph # (Auto) 1.0 L (1.2-4.9) X10*3/uL [place] # (Auto) 0.4 (0.1-1.2) X10*3/uL Eos # (Auto) 0.3 (0.0-0.4) X10*3/uL Baso # (Auto) 0.0 (0.0-0.2) X10*3/uL Abs Immat Gran (auto) 0.01 (0.00-0.03) X10*3/uL Absolute Neuts (auto) 3.8 (2.0-8.3) x10*3/uL Absolute Nucleated RBC 0.000 (0.0-0.012) X10*3/uL Nucleated RBC % (auto) 0.0 (0.0-0.2) /100WBC PT 12.2 (10.9-12.4) SEC INR 1.0 (0.9-1.1) APTT 32.8 (26.0-36.8) SEC Sodium 141 (135-145) mmol/L Potassium 3.8 (3.3-5.1) mmol/L Chloride 109 H (96-108) mmol/L Carbon Dioxide 18 L (22-29) mmol/L Anion Gap 18 (12-20) BUN 6 L (9-16) mg/dL Creatinine 0.84 (0.5-1.4) mg/dL Estim Creat Clear Calc 68.9 Estimated GFR > 60 Random Glucose 86 (60-115) mg/dL Calcium 9.0 D (8.4-10.2) mg/dL Total Bilirubin 0.3 (0.0-1.0) mg/dL AST 14 (5-31) U/L ALT 10 (0-31) U/L Alkaline Phosphatase 72 (39-117) U/L Total Creatine Kinase 54 (26-140) U/L Troponin I High Sens < 2.7 (<3.5-17.0) ng/L Total Protein 6.9 (6.5-8.0) g/dL Albumin 3.7 (3.5-5.0) g/dL Lipase 13 (8-78) U/L Independent Interpretation I performed an independent interpretation of an: EKG Radiology Impression Discussion of test interpretation with radiology: I have reviewed the radiologist's reading. Radiologist Impression: US venous duplex LE BI IMPRESSION: No evidence of deep venous thrombosis involving the bilateral lower extremities. Dictated By: Kerwin Amado MD Independent Historian Clinical information obtained from an independent historian. History obtained from or confirmed by: Spouse Discharge Plan Discharge Clinical Impression: Acute pain of both shoulders, Bilateral thigh pain, Ketosis, Acute dehydration, Anorexia Abdominal pain Qualifiers: Abdominal location: epigastric Qualified Code(s): R10.13 - Epigastric pain Patient Disposition: Admitted As Inpatient Print Language: Serbian
--- NOTE | 2024-05-04 13:33 | ECG_ITS ---
Test Reason : chest pain Blood Pressure : / mmHG Vent. Rate : 087 BPM Atrial Rate : 087 BPM P-R Int : 148 ms QRS Dur : 074 ms QT Int : 366 ms P-R-T Axes : 079 076 073 degrees QTc Int : 440 ms Normal sinus rhythm Normal ECG When compared with ECG of 12-APR-2024 10:33, No significant change was found Referred By: Ro Kelley Electronically Signed By:GEO BOYD
[2024-05-04 14:24] LABS: MANUAL DIFF FLAG NO
[2024-05-04 14:25] LABS: Basophils Percent Auto 0.5 % (0-2); Eosinophils Absolute Auto 0.3 X10*3/uL (0.0-0.4); Eosinophils Percent Auto 5.7 % (0-4); Hematocrit 38.6 % (37.0-47.0); Hemoglobin 13.6 g/dl (12.0-16.0); Imm Gran Abs Auto 0.01 X10*3/uL (0.00-0.03); Imm Gran Pct Auto 0.2 % (0.0-0.4); Lymphocytes Percent Auto 17.4 % (20-40); Mean Corpuscular HGB Conc 35.2 g/dl (31.0-35.0); Mean Corpuscular Hemoglobin 31.8 pg (27.0-33.0); Mean Corpuscular Volume 90.2 fL (80.0-98.0); Mean Platelet Volume 8.4 fL (9.4-12.3); Monocytes Absolute Auto 0.4 X10*3/uL (0.1-1.2); Monocytes Percent Auto 7.7 % (2-11); Neutrophils Absolute Auto 3.8 x10*3/uL (2.0-8.3); Neutrophils Percent Auto 68.5 % (45-73); Platelet Count 217 X10*3/uL (160-400); Red Blood Count 4.28 X10*6/uL (4.20-5.50); White Blood Count 5.6 X10*3/uL (4.8-10.8)
[2024-05-04 14:29] LABS: Prothrombin Time 12.2 SEC (10.9-12.4)
[2024-05-04 14:32] LABS: Partial Thromboplastin Time 32.8 SEC (26.0-36.8)
[2024-05-04 14:38] LABS: Alanine Aminotransferase 10 U/L (0-31); Albumin Level 3.7 g/dL (3.5-5.0); Alkaline Phosphatase 72 U/L (39-117); Anion Gap 18 (12-20); Aspartate Amino Transferase 14 U/L (5-31); Bilirubin Total 0.3 mg/dL (0.0-1.0); Blood Urea Nitrogen 6 mg/dL (9-16); Carbon Dioxide 18 mmol/L (22-29); Chloride 109 mmol/L (96-108); Creatinine Clr Calc Pharmacy 68.9; Estimated Glomerular Filt Rate > 60; Glucose Random 86 mg/dL (60-115); Potassium 3.8 mmol/L (3.3-5.1); Sodium 141 mmol/L (135-145); Total Protein 6.9 g/dL (6.5-8.0)
[2024-05-04 14:46] LABS: Troponin-I High Sensitivity < 2.7 ng/L (<3.5-17.0)
--- NOTE | 2024-05-04 14:59 | PC.NURSE ---
delay in patient being roomed r/t environmental services needed for room cleaning
[2024-05-04] MEDS: HYDROmorphone HCl 1 MG/ML SYRINGE IVPUSH ×2 (15:21→16:58)
[2024-05-04] MEDS: 0.9 % Sodium Chloride 1,000 ML 999 ML IV (15:21)
[2024-05-04] MEDS: ondansetron HCL 4 MG/2 ML VIAL IVPUSH (15:21)
--- NOTE | 2024-05-04 15:29 | PC.NURSE ---
patient presents to ED through external triage with cc of chest pain and bilateral leg pain since surgery roughly 4 days ago. patient had hernia repair done at this hospital about 4 days ago and states since she got home she has been experiencing 10/10 pain to bilateral lower extremities and mid sternal chest pain, has been ambulating at home but when she is at rest the pain in her legs is unbearable. patient with small incisions covered with gauze and tegaderm across her abdomen, tearful upon assessment. 18g PIV placed by this RN and patient medicated per OCT. US at bedside at this time.
[2024-05-04 16:38] LABS: Lipase 13 U/L (8-78)
[2024-05-04] MEDS: iohexoL 350 MG/ML 100 ML INFUS..BTL IV (16:40)
[2024-05-04] MEDS: diphenhydrAMINE HCL 50 MG/ML VIAL 12.5 MG IVPUSH (17:00)
[2024-05-04] MEDS: Dextrose 5 % and 0.9 % NaCl 1,000 ML 125 ML IVCONT (17:01)
--- NOTE | 2024-05-04 18:31 | PC.NURSE ---
patient ambulatory to bathroom with steady gait and help from , IV remains running
[2024-05-04] MEDS: Famotidine/PF 20 MG/2 ML VIAL IVPUSH (19:36)
[2024-05-04] MEDS: Acetaminophen 1,000 MG/100 ML PIGGYBACK 16.7 MG IV (19:36)
[2024-05-04] MEDS: Lactated Ringers 1,000 ML 150 ML IVCONT (20:54)
[2024-05-04] MEDS: Pantoprazole Sodium 40 MG/10 ML VIAL IVPUSH (20:54)
[2024-05-04] MEDS: HYDROmorphone HCl 0.5 MG/0.5 ML SYRINGE 0.25 MG IVPUSH (22:45)
[2024-05-04] MEDS: 0.9 % Sodium Chloride Flush 3 ML SYRINGE IVFLUSH (22:46)
[2024-05-05] MEDS: Acetaminophen 1,000 MG/100 ML PIGGYBACK 16.7 MG IV ×2 (01:44→06:33)
[2024-05-05] MEDS: Lactated Ringers 1,000 ML 150 ML IVCONT ×2 (03:16→09:59)
[2024-05-05 03:41] VITALS: BP 111/60; PULSE 78; RESP 18; TEMP 36.6; O2SAT 97
[2024-05-05] MEDS: HYDROmorphone HCl 0.5 MG/0.5 ML SYRINGE 0.25 MG IVPUSH ×2 (05:41→10:17)
[2024-05-05 06:58] VITALS: BP 122/66; PULSE 81; RESP 16; TEMP 36.6; O2SAT 97
[2024-05-05] MEDS: Pantoprazole Sodium 40 MG/10 ML VIAL IVPUSH (08:51)
--- NOTE | 2024-05-05 10:39 | PM.PNGS ---
Subjective Subjective Date of Service: 05/05/24 Interval history: Continues to complain of the shoulder pain and posterior thigh pain but are improved. Denies any nausea or significant abdominal pain. Tolerating protein shakes. Bilateral doppler study was negative CT-chest showed as expected, subcutaneous emphysema in the shoulder areas as well as some air in the abdomen. WBC was normal without left shift. No evidence of sepsis Physical Exam Vital Signs: Vital Signs: Last Vital Signs Temp 98 F 05/05/24 06:58 Pulse 81 05/05/24 06:58 Resp 16 05/05/24 06:58 BP 122/66 05/05/24 06:58 Pulse Ox 97 05/05/24 06:58 O2 Del Method Room Air 05/05/24 06:58 BMI result Body Mass Index 21.0 Chest: Chest palpation & inspection: crepitus (no significant crepitus felt) GI: Inspection: Yes normal to inspection and Yes incision (healing well) Palpation (GI): Soft to palpation Extrem: Right lower extremity: normal to inspection (no calf tenderness) Left lower extremity: normal to inspection (no calf tenderness) Objective Data Active Medications Hydromorphone HCl (Hydromorphone Hcl 0.5 Mg/0.5 Ml Syringe) 0.25 mg IVPUSH Q4H PRN; Protocol PRN Reason: Pain, Severe (Pain Scale 7-10) Last Admin: 05/05/24 10:17 Dose: 0.25 mg Documented By: SREE Dextrose/Sodium Chloride (D5ns) 1,000 mls @ 125 mls/hr IVCONT .Q8H [facility] Last Admin: 05/05/24 07:41 Dose: Not Given Documented By: JOYCE Non-Admin Reason: change order Lactated Ringer's (Lr) 1,000 mls @ 150 mls/hr IVCONT .Q6H40M [facility] Last Admin: 05/05/24 09:59 Dose: 150 mls/hr Documented By: SREE Acetaminophen (Ofirmev) 1,000 mg in 100 mls @ 16.7 mls/hr IV .Q6H [facility] Last Admin: 05/05/24 06:33 Dose: 16.7 mls/hr Documented By: CRUZITO Pantoprazole Sodium (Pantoprazole Sodium 40 Mg/10 Ml Vial) 40 mg IVPUSH BID [facility] Last Admin: 05/05/24 08:51 Dose: 40 mg Documented By: SREE Sodium Chloride (0.9 % Sodium Chloride Flush 3 Ml Syringe) 3 ml IVFLUSH QSHIFT [facility] Last Admin: 05/05/24 07:14 Dose: Not Given Documented By: SREE Non-Admin Reason: IV Running Labs 05/04/24 14:19 05/04/24 14:19 Labs: Laboratory Results - last 24 hr 05/04/24 14:19 MCV 90.2 MCH 31.8 MCHC 35.2 H RDW 12.0 Plt Count 217 MPV 8.4 L Immature Gran % (Auto) 0.2 Neut % (Auto) 68.5 Lymph % (Auto) 17.4 L [place] % (Auto) 7.7 Eos % (Auto) 5.7 H Baso % (Auto) 0.5 Lymph # (Auto) 1.0 L [place] # (Auto) 0.4 Eos # (Auto) 0.3 Baso # (Auto) 0.0 Abs Immat Gran (auto) 0.01 Absolute Neuts (auto) 3.8 Absolute Nucleated RBC 0.000 Nucleated RBC % (auto) 0.0 PT 12.2 INR 1.0 APTT 32.8 Anion Gap 18 Estim Creat Clear Calc 68.9 Estimated GFR > 60 Random Glucose 86 Calcium 9.0 D Total Bilirubin 0.3 AST 14 ALT 10 Alkaline Phosphatase 72 Total Creatine Kinase 54 Troponin I High Sens < 2.7 Total Protein 6.9 Albumin 3.7 Lipase 13 Procedures Date of Service Date of Service: 05/05/24 Progress Note: A&P Assessment and plan (1) Shoulder pain: Status: Acute Plan We discussed the etiology of the shoulder and leg pain. I will discharge her home on PO Tylenol Encouraged her to to ambulate and walk and use the incentive spirometer Patient is in agreement with the plan Will check CPK and CBC today Time Spent With Patient Time: Total time managing care of this patient today ____ minutes. Quality Stroke Does the patient have a stroke diagnosis?: No VTE Prior VTE?: No VTE Risk Level:: Surgical - moderate VTE Device Contraindication: N/A - Device Ordered VTE Drug Contraindication: Treatment Not Indicated
--- NOTE | 2024-05-05 10:48 | PHA.MEDREC ---
Pharmacy Consult ? Medication Reconciliation Pharmacy has completed the medication reconciliation. Spoke with patient to confirm medications. She is due for her vitamin B12 shot and the Emgality on May 07. She takes 3 tablets of the cyclobenzaprine at bedtime. She has estradiol vaginal cream at home but has not been using lately due to forgetfulness but she does claim to use the estradiol 2 mg tablets that she cuts in half and takes daily. I do not have claim history for it nor does [employer]. Will keep on med rec since patient states she takes it. She confirmed she cuts her HCTZ in half and takes once daily. She has not taken the potassium or the Trulance since before her surgery. The topiramate and vitamin B1 are both 100 mg once daily. She confirmed that omeprazole was stopped and pantoprazole was started. Patient reports she took her medications yesterday.
[2024-05-05 11:02] LABS: MANUAL DIFF FLAG NO
[2024-05-05 11:04] LABS: Basophils Percent Auto 0.5 % (0-2); Eosinophils Absolute Auto 0.3 X10*3/uL (0.0-0.4); Eosinophils Percent Auto 7.1 % (0-4); Hemoglobin 12.5 g/dl (12.0-16.0); Imm Gran Abs Auto 0.01 X10*3/uL (0.00-0.03); Imm Gran Pct Auto 0.2 % (0.0-0.4); Lymphocytes Absolute Auto 0.8 X10*3/uL (1.2-4.9); Lymphocytes Percent Auto 18.9 % (20-40); Mean Corpuscular HGB Conc 34.7 g/dl (31.0-35.0); Mean Corpuscular Volume 92.1 fL (80.0-98.0); Mean Platelet Volume 8.8 fL (9.4-12.3); Monocytes Absolute Auto 0.4 X10*3/uL (0.1-1.2); Neutrophils Absolute Auto 2.8 x10*3/uL (2.0-8.3); Neutrophils Percent Auto 65.3 % (45-73); Platelet Count 199 X10*3/uL (160-400); Red Blood Count 3.91 X10*6/uL (4.20-5.50); Red Cell Distribution Width 12.3 % (11.0-16.0); White Blood Count 4.4 X10*3/uL (4.8-10.8)
--- NOTE | 2024-05-05 11:44 | MHC.CM.PN ---
PT LIVES WITH HAS NO SERVICES IS INDEPENDENT WILL SELF ARRANGE TRANSPORT HOME DC PLAN HOME NO SERVIES
--- NOTE | 2024-05-05 12:50 | MHC.CM.PN ---
PT DCD HOME SELF CARE
--- NOTE | 2024-05-30 08:16 | PM.DS ---
DS: Providers Provider Date of Service: 05/05/24 Date of admission: 05/04/24 19:25 Primary care physician: Jenn Coleman MD DS: Diagnosis Discharge Diagnosis (1) Shoulder pain: Status: Acute DS: Summary Hospital Course Hospital Course: 54-year-old female history of hiatal hernia repair on 04/30/2024. Presented to the emergency room on 05/04/2024 for evaluation of chest pain, bilateral shoulder, abdominal pain and bilateral thigh pain. Initial workup was negative however given her discomfort, she was admitted to the hospital overnight for observation. CT scan showed air within the abdomen consistent with recent surgery. No evidence of sepsis, no evidence of leukocytosis. Pain improved. She was discharged home on 05/05/2024. Dictated for Dr. Alvarez Time Attestation Total time managing care of this patient today: 20 mintues. Discharge Coordination Time (in mins): 20 Quality: Safe Use of Opioids Does Pt have an Active Cancer Diagnosis on the Problem List?: No Quality: Stroke Does the patient have a stroke diagnosis?: No Physical Exam Vital Signs: Vital Signs: Last Vital Signs Temp 98 F 05/05/24 06:58 Pulse 81 05/05/24 06:58 Resp 16 05/05/24 06:58 BP 122/66 05/05/24 06:58 Pulse Ox 97 05/05/24 06:58 O2 Del Method Room Air 05/05/24 06:58 BMI result Body Mass Index 21.0 DS: Data Data Completed and Pending Completed studies during hospitalization [Text1]: Procedures Repair Diaphragm, Percutaneous Endoscopic Approach (04/30/24) Discharge Plan Discharge Anticipated Discharge Date/Time: 05/05/24 12:29 Patient Disposition: Home, Self-Care Discharge Diagnosis: Shoulder and thigh pain Referrals: Jenn Coleman MD [Primary Care Provider] - 1 Week Discharge Medications: Continued Trulance 3 mg tablet 3 mg PO DAILY Qty: 30 3RF Patient Comments: 05/05: patient reports she has not taken since before her surgery cyanocobalamin (vitamin B-12) 1,000 mcg/mL solution 1,000 mcg IM Q4W Rx Instructions: Patient is due May 07 2024 bupropion HCl 300 mg tablet extended release 24 hr 300 mg PO DAILY Rx Instructions: with the 150 mg Gemtesa 75 mg tablet 75 mg PO DAILY thiamine HCl (vitamin B1) 100 mg tablet 100 mg PO DAILY acetaminophen 650 mg Tablet Extended Release 650 mg PO Q12H PRN (Reason: Pain) duloxetine 30 mg capsule,delayed release(DR/EC) 60 mg PO BEDTIME sodium chloride 1,000 mg tablet,soluble 1,000 mg PO DAILY PRN (Reason: POTS) zolpidem 10 mg tablet 10 mg PO BEDTIME bupropion HCl 150 mg tablet extended release 24 hr 150 mg PO DAILY Rx Instructions: with the 300 mg ifnlkirrwd-xxkxsboglksfo-cisz 50-325-40 mg tablet 1 tab PO DAILY PRN (Reason: Migraine Headache) sumatriptan succinate 100 mg tablet 100 mg PO DAILY MDD 200 mg PRN (Reason: Migraine Headache) Rx Instructions: May take another tablet 4 hours later if needed valacyclovir 500 mg tablet 500 mg PO DAILY alprazolam 0.5 mg tablet 0.5 mg PO DAILY cholecalciferol (vitamin D3) [Vitamin D3] 25 mcg (1,000 unit) tablet 25 mcg PO DAILY prazosin 1 mg capsule 1 mg PO BEDTIME potassium citrate 10 mEq (1,080 mg) tablet extended release 20 meq PO TID Patient Comments: 05/05: patient reports she has not taken since before her surgery pantoprazole 40 mg tablet,delayed release (DR/EC) 40 mg PO DAILY Qty: 90 0RF sucralfate 100 mg/mL suspension 10 ml PO BID Qty: 600 2RF ondansetron 4 mg tablet,disintegrating 4 mg PO Q12H Qty: 20 0RF Rx Instructions: Only take one every 12 hours as needed if you have nausea duloxetine 30 mg capsule,delayed release(DR/EC) 30 mg PO DAILY@0900 topiramate 100 mg tablet 100 mg PO DAILY Held celecoxib 200 mg capsule 200 mg PO DAILY Hold Instructions: Resume on 05/26/24. estradiol 2 mg tablet 1 mg PO DAILY Hold Instructions: Resume on 05/19/24. cyclobenzaprine 5 mg tablet 15 mg PO BEDTIME Hold Instructions: Resume on 05/22/24. dronabinol 10 mg capsule 10 mg PO TID Hold Instructions: Resume on 05/06/24. Only if you have nausea galcanezumab-gnlm 120 mg/mL pen injector 120 mg subcut QMONTH Hold Instructions: Resume on 05/19/24. Rx Instructions: Patient is due May 07 2024 hydrochlorothiazide 50 mg tablet 25 mg PO DAILY Hold Instructions: Resume on 05/08/24. Discharge Orders: Discharge Order (Routine); Ordered 05/05/24 Ordered By: Luis Alvarez Activity on Discharge: As tolerated Stand Alone Forms: Patient Portal Discharge page Print Language: Panamanian Activity Restrictions/Additional Instructions: Continue with 2 protein shakes today drinking 2ml per minute and update me tonight Care Plan Goals: Resolve the pain Health Concerns: None Plan of Treatment: As above Assessment: Patient was examined today and is stable to be discharged Discharge Date/Time: 05/05/24 13:16
--- NOTE | 2024-07-02 22:52 | P.HPGS_ITS ---
History of Present Illness History of Present Illness Date of Service: 07/02/24 Chief complaint: shoulder pain Narrative: Lorie Purcell is a 54 year old female who had laparoscopic hiatal hernia repair 4 days ago. Presents with shoulder pain No other issues Review of Systems Review of Systems: Yes all other systems are reviewed and are negative ENT: Reports neck pain Musculoskeletal: Musculoskeletal: Reports neck pain PMFSH Past Medical History Medical History Anorexia Acute dehydration Ketosis Preprocedural examination Malnutrition Herpes DJD (degenerative joint disease) Anxiety Insomnia Migraines Epigastric abdominal pain Hypoglycemia Family History Family History Father History of cancer Mother Hx of heat stroke Surgical History Surgical History Hx of hernia repair Hx of cholecystectomy Hx of spinal fusion History of fundoplication Hx of total knee replacement H/O cataract removal with insertion of prosthetic lens Hx of appendectomy History of carpal tunnel release Hx of eye surgery Hx of bladder repair surgery History of repair of hiatal hernia Hx of abdominal hysterectomy Hx of fusion of cervical spine Hx of endoscopy History of colonoscopy Social History Social History Household Members: Spouse Housing: House Do you presently have visiting nurse or other home services: No Alcohol intake: current Alcohol intake frequency: holidays/special occasions only Patient Tobacco Use Status: Former Tobacco user Substance Use Type: Marijuana Advance Directives Date on File: 05/11/20 service: No Meds Allergies Allergy/AdvReac Type Severity Reaction Status Date / Time egg yolk Allergy Mild Unknown Verified 06/28/24 09:01 clarithromycin [From BIAXIN] Allergy Unknown SWELLING Verified 06/28/24 09:01 codeine [CODEINE] Allergy Unknown SWELLING Verified 06/28/24 09:01 egg [EGG] Allergy Unknown SWELLING Verified 06/28/24 09:01 metoclopramide [From REGLAN] Allergy Unknown SWELLING Verified 06/28/24 09:01 nortriptyline Allergy Unknown swelling Verified 06/28/24 09:01 raw eggs Allergy Mild unknown Uncoded 06/28/24 09:01 Biaxin Allergy Unknown unknown Uncoded 06/28/24 09:01 Home Medications ?Medication ?Instructions ?Recorded ?Confirmed ?Last Taken ?Type cyclobenzaprine 5 mg tablet 15 mg PO BEDTIME muscle relaxer 02/11/21 06/25/24 04/29/24 History estradiol 2 mg tablet 1 mg PO DAILY 02/11/21 06/25/24 04/29/24 History dronabinol 10 mg capsule 10 mg PO TID 10/19/21 06/25/24 04/29/24 History prazosin 1 mg capsule 1 mg PO BEDTIME 10/19/21 06/25/24 04/29/24 History alprazolam 0.5 mg tablet 0.5 mg PO DAILY 01/17/22 06/25/24 04/29/24 History valacyclovir 500 mg tablet 500 mg PO DAILY 01/17/22 06/25/24 04/29/24 History eayibneses-leaieropnhiul-ladgszwd 1 tab PO DAILY PRN Migraine 06/27/22 06/25/24 04/22/24 History 50 mg-325 mg-40 mg tablet Headache galcanezumab-gnlm 120 mg/mL 120 mg subcut QMONTH 06/27/22 06/25/24 04/29/24 History subcutaneous pen injector potassium citrate 10 mEq (1,080 20 meq PO TID 06/27/22 06/25/24 04/29/24 History mg) tablet,extended release sumatriptan succinate 100 mg tablet 100 mg PO DAILY PRN Migraine 06/27/22 06/25/24 04/29/24 History Headache zolpidem 10 mg tablet 10 mg PO BEDTIME 06/27/22 06/25/24 04/29/24 History cholecalciferol (vitamin D3) 25 25 mcg PO DAILY 01/30/23 06/25/24 04/29/24 History mcg (1,000 unit) tablet (Vitamin D3) hydrochlorothiazide 50 mg tablet 25 mg PO DAILY 01/30/23 06/25/24 04/29/24 History bupropion HCl 150 mg 24 hr tablet, 150 mg PO DAILY 10/09/23 06/25/24 04/29/24 History extended release duloxetine 30 mg capsule,delayed 30 mg PO DAILY@0900 10/09/23 06/25/24 04/29/24 History release topiramate 100 mg tablet 100 mg PO DAILY 10/09/23 06/25/24 04/29/24 History bupropion HCl 300 mg 24 hr tablet, 300 mg PO DAILY 04/30/24 06/25/24 Unknown History extended release cyanocobalamin (vitamin B-12) 1,000 mcg IM Q4W 04/30/24 06/25/24 Unknown History 1,000 mcg/mL injection solution vibegron 75 mg tablet (Gemtesa) 75 mg PO DAILY 04/30/24 06/25/24 Unknown History acetaminophen 650 mg 650 mg PO Q12H PRN Pain 05/05/24 06/25/24 Unknown History tablet,extended release celecoxib 200 mg capsule 200 mg PO DAILY 05/05/24 06/25/24 Unknown History duloxetine 30 mg capsule,delayed 60 mg PO BEDTIME 05/05/24 06/25/24 Unknown History release sodium chloride 1,000 mg soluble 1,000 mg PO DAILY PRN POTS 05/05/24 06/25/24 Unknown History tablet thiamine HCl (vitamin B1) 100 mg 100 mg PO DAILY 05/05/24 06/25/24 Unknown History tablet calcium citrate 400 mg PO DAILY 06/28/24 Unknown History Physical Exam Vital Signs: Vital Signs: Last Vital Signs Temp 98 F 05/05/24 06:58 Pulse 81 05/05/24 06:58 Resp 16 05/05/24 06:58 BP 122/66 05/05/24 06:58 Pulse Ox 97 05/05/24 06:58 O2 Del Method Room Air 05/05/24 06:58 BMI result Body Mass Index 21.0 Neck: Other: mild neck and shoulder pain GI: Inspection: Yes incision (well healed) Palpation (GI): Soft to palpation Extrem: Right lower extremity: normal to inspection (no calf tenderness) Le ft lower extremity: normal to inspection (no calf tenderness) Assessment and Plan (1) Acute pain of both shoulders: Status: Acute Plan Admit for pain control CT with some subcutaneous emphysema as expected Plan was discussed with the patient Total time managing care of this patient today: 30 minutes. Quality Stroke Does the patient have a stroke diagnosis?: No VTE Prior VTE?: No VTE Risk Level:: Surgical - moderate VTE Device Contraindication: N/A - Device Ordered VTE Drug Contraindication: Treatment Not Indicated Procedures Date of Service Date of Service: 07/02/24
== END 2024-05-05 13:16 | disposition home or self-care (01) | DRG 948 ==
LOC: HO.ED 19:40 → HO.EDOVER 19:52 → HO.S3 20:38
PROVIDERS: Physician Assistant Medical; Admitting Provider Surgery; Emergency Provider Emergency Medicine Emergency Medical Services; PCP Internal Medicine; Visit Provider Surgery
DX: G89.18 Other acute postprocedural pain (principal); T81.82XA Emphysema (subcutaneous) resulting from a procedure, initial encounter; Y83.8 Other surgical procedures as the cause of abnormal reaction of the patient, or of later complication, without mention of misadventure at the time of the procedure; E86.0 Dehydration; Z79.899 Other long term (current) drug therapy
CPT/HCPCS: 36415; 71260; 74177; 80053; 82550; 83690; 84484; 85025; 85610; 85730; 93005; 93970; 99285; J0131; J1170; J1200; J2405; J2470; J7120; Q9967

== ENCOUNTER → 2024-05-04 19:25 | Outpatient (BNV) | payer MEDICARE, MEDICAID, SELFPAY | PROVIDERS: Admitting Provider Surgery; Emergency Provider Emergency Medicine Emergency Medical Services; PCP Internal Medicine; Visit Provider Surgery | DX: M25.511 Pain in right shoulder (principal); M25.512 Pain in left shoulder | CPT/HCPCS: 99024; 99238; 99499 ==

== ENCOUNTER 2024-05-07 11:54 | Outpatient (AMB) | payer MEDICARE, MEDICAID, SELFPAY ==
--- NOTE | 2024-05-07 11:56 | A.OFFVIS_ITS ---
VS Expanded 05/07/24 12:08 BP 127/78 Blood Pressure Location Rt brachial Blood Pressure Position Sitting Pulse 93 Pulse Source Pulse Oximeter Temp 97.0 F Temperature Source Temporal Artery Scan Pulse Oximetry 97 Oxygen Delivery Method Room Air Weight 122 lb 3.2 oz Intake Visit Reasons: (OV) s/p Diaphragmatic Hernia Repair 04/30/24 Allergies egg yolk Allergy (Mild, Verified 05/04/24 13:31) Unknown clarithromycin [From BIAXIN] Allergy (Unknown, Verified 05/04/24 13:31) SWELLING codeine [CODEINE] Allergy (Unknown, Verified 05/04/24 13:31) SWELLING egg [EGG] Allergy (Unknown, Verified 05/04/24 13:31) SWELLING metoclopramide [From REGLAN] Allergy (Unknown, Verified 05/04/24 13:31) SWELLING nortriptyline Allergy (Unknown, Verified 05/04/24 13:31) swelling raw eggs Allergy (Mild, Uncoded 05/04/24 13:31) unknown Biaxin Allergy (Unknown, Uncoded 05/04/24 13:31) unknown HPI Comments Details: Pleasant 54-year-old female status post hiatal hernia repair on 04/30/24. She is POD 7. Tolerating 1-1/2-2 4 in 1 protein shakes although feels full quickly. She is drinking 1 oz over about 12 minutes in forceps. I instructed her to drink less volume and more sips. She was instructed by Dr. Alvarez to start to use fair life milk. She states that she does not mind the taste of the shakes with a consistency, but just rather feeling full rather quickly. [facility] Medical History (Updated 05/05/24 @ 10:43 by Luis Alvarez MD) Herpes DJD (degenerative joint disease) Anxiety Insomnia Migraines Epigastric abdominal pain Hypoglycemia Surgical History (Updated 05/07/24 @ 12:18 by Ashwini Gipson CMA) Hx of hernia repair Hx of cholecystectomy Hx of spinal fusion History of fundoplication Hx of total knee replacement H/O cataract removal with insertion of prosthetic lens Hx of appendectomy History of carpal tunnel release Hx of eye surgery Hx of bladder repair surgery History of repair of hiatal hernia Hx of abdominal hysterectomy Hx of fusion of cervical spine Hx of endoscopy History of colonoscopy Family History Father History of cancer Mother Hx of heat stroke Social History Household Members: Spouse Housing: House Do you presently have visiting nurse or other home services: No Alcohol intake: current Alcohol intake frequency: holidays/special occasions only Patient Tobacco Use Status: Former Tobacco user Substance Use Type: Marijuana Advance Directives Date on File: 05/11/20 service: No Physical Exam GI Inspection: Yes incision (Ecchymosis to the 2 right lateral incisions otherwise clean, dry, intact) Assessment & Plan Assessment & Plan (1) History of repair of hiatal hernia: Code(s): Z98.890 - Other specified postprocedural states; Z87.19 - Personal history of other diseases of the digestive system Category: Surgical Plan: Postop day 7, status post hiatal hernia repair. She did require an overnight stay in the hospital over the weekend due to complaints of chest shoulder and leg pain. She was able to be discharged the next day with significant improve ment. She states the chest pain has completely resolved shoulder pain is much much better and she still has intermittent leg pain although significantly improved.
[2024-05-07 12:08] VITALS: BP 127/78; PULSE 93; TEMP 36.1; O2SAT 97
== END 2024-05-07 12:22 | disposition home or self-care (01) ==
PROVIDERS: PCP Internal Medicine; Visit Provider Physician Assistant Surgical
DX: Z98.890 Other specified postprocedural states (principal); Z87.19 Personal history of other diseases of the digestive system
CPT/HCPCS: 99024

== ENCOUNTER → 2024-05-07 11:54 | Outpatient (BNVA) | payer MEDICARE, MEDICAID, SELFPAY | PROVIDERS: PCP Internal Medicine; Visit Provider Physician Assistant Surgical | DX: Z48.815 Encounter for surgical aftercare following surgery on the digestive system (principal); Z87.19 Personal history of other diseases of the digestive system; Z98.890 Other specified postprocedural states | CPT/HCPCS: 99212 ==

== ENCOUNTER 2024-05-28 13:38 | Outpatient (AMB) | payer MEDICARE, MEDICAID, SELFPAY ==
--- NOTE | 2024-05-28 13:49 | MHC.OFFVISWM ---
VS Expanded 05/28/24 13:51 BP 111/64 Blood Pressure Location Lt brachial Blood Pressure Position Sitting Pulse 73 Pulse Oximetry 97 Weight 119 lb 6 oz Intake Visit Reasons: (OV) s/p Diaphragmatic Hernia Repair 04/30/24 Allergies egg yolk Allergy (Mild, Verified 05/28/24 13:54) Unknown clarithromycin [From BIAXIN] Allergy (Unknown, Verified 05/28/24 13:54) SWELLING codeine [CODEINE] Allergy (Unknown, Verified 05/28/24 13:54) SWELLING egg [EGG] Allergy (Unknown, Verified 05/28/24 13:54) SWELLING metoclopramide [From REGLAN] Allergy (Unknown, Verified 05/28/24 13:54) SWELLING nortriptyline Allergy (Unknown, Verified 05/28/24 13:54) swelling raw eggs Allergy (Mild, Uncoded 05/28/24 13:54) unknown Biaxin Allergy (Unknown, Uncoded 05/28/24 13:54) unknown HPI Comments Details: Patient is a 54-year-old female who returns to the office today in follow-up. She is 1 month status post hiatal hernia repair performed on 04/30/2024. She reports she is following the meal plan as directed by Dr. Alvarez including celebrate rebuild, half scoop x2 a celebrate protein bar, a Croatian yogurt or scrambled egg, and recently started on 5 forks of protein and 5 of vegetables. She was additionally supposed to be doing a celebrate rebuild half scoop after dinner but has not been doing this. She reports overall doing fairly well with the foods although has had some feelings of ?feeling weird 1st thing in the morning?, this may be secondary to not having the last shake of the evening after her meal. She will discuss this with Dr. Alvarez. She has denies any lightheadedness. She is also tolerating approximately 40 oz of fluids in addition to her shakes. She offers no other significant complaints at today's visit. [facility] Medical History (Updated 05/09/24 @ 00:01 by Sonja Hartmann) Herpes DJD (degenerative joint disease) Anxiety Insomnia Migraines Epigastric abdominal pain Hypoglycemia Surgical History (Updated 05/28/24 @ 14:26 by MISSAEL Apodaca) Hx of hernia repair Hx of cholecystectomy Hx of spinal fusion History of fundoplication Hx of total knee replacement H/O cataract removal with insertion of prosthetic lens Hx of appendectomy History of carpal tunnel release Hx of eye surgery Hx of bladder repair surgery History of repair of hiatal hernia Hx of abdominal hysterectomy Hx of fusion of cervical spine Hx of endoscopy History of colonoscopy Family History Father History of cancer Mother Hx of heat stroke Social History Household Members: Spouse Housing: House Do you presently have visiting nurse or other home services: No Alcohol intake: current Alcohol intake frequency: holidays/special occasions only Patient Tobacco Use Status: Former Tobacco user Substance Use Type: Marijuana Advance Directives Date on File: 05/11/20 service: No Physical Exam Vital Signs: Last Vital Signs Pulse 73 05/28/24 13:51 BP 111/64 05/28/24 13:51 Pulse Ox 97 05/28/24 13:51 GI Inspection: Yes incision (Healing well) Assessment & Plan Assessment & Plan (1) Hx of hernia repair: Comment: 04/30/24 diaphragmatic hernia Code(s): Z98.890 - Other specified postprocedural states; Z87.19 - Personal history of other diseases of the digestive system Category: Surgical Plan: Patient will discuss with Dr. Alvarez her current meal plan as she is not doing the last shake of the day. She additionally was enquiring about the use of medical marijuana and she will discuss this with him. She was encouraged to avoid any abdominal exercises for 6 weeks total. We will have her follow-up in the office in approximately 3 weeks.
[2024-05-28 13:51] VITALS: BP 111/64; PULSE 73; O2SAT 97
== END 2024-05-28 14:26 | disposition home or self-care (01) ==
PROVIDERS: PCP Internal Medicine; Visit Provider Physician Assistant Surgical
DX: Z98.890 Other specified postprocedural states (principal); Z87.19 Personal history of other diseases of the digestive system
CPT/HCPCS: 99024

== ENCOUNTER → 2024-05-28 13:38 | Outpatient (BNVA) | payer MEDICARE, MEDICAID, SELFPAY | PROVIDERS: PCP Internal Medicine; Visit Provider Physician Assistant Surgical | DX: Z48.815 Encounter for surgical aftercare following surgery on the digestive system (principal); Z98.890 Other specified postprocedural states; Z87.19 Personal history of other diseases of the digestive system | CPT/HCPCS: 99212 ==

== ENCOUNTER 2024-06-25 09:24 | Outpatient (AMB) | payer MEDICARE, MEDICAID, SELFPAY ==
--- NOTE | 2024-06-25 09:05 | MHC.OFFVISWM ---
VS Expanded 06/25/24 09:10 Weight 121 lb Intake Visit Reasons: TELEPHONE DIAPHRAGMATIC PO S/P HERNIA REPAIR Allergies egg yolk Allergy (Mild, Verified 05/28/24 13:54) Unknown clarithromycin [From BIAXIN] Allergy (Unknown, Verified 05/28/24 13:54) SWELLING codeine [CODEINE] Allergy (Unknown, Verified 05/28/24 13:54) SWELLING egg [EGG] Allergy (Unknown, Verified 05/28/24 13:54) SWELLING metoclopramide [From REGLAN] Allergy (Unknown, Verified 05/28/24 13:54) SWELLING nortriptyline Allergy (Unknown, Verified 05/28/24 13:54) swelling raw eggs Allergy (Mild, Uncoded 05/28/24 13:54) unknown Biaxin Allergy (Unknown, Uncoded 05/28/24 13:54) unknown Medication List - Last Reconciled 06/25/24 by MISSAEL Montilla acetaminophen ER 650 mg PO Q12H PRN alprazolam 0.5 mg PO DAILY bupropion HCl XL 300 mg PO DAILY bupropion HCl XL 150 mg PO DAILY vtrlgnhpcp-njiwfxqhhsfkd-qbsy 50-325-40 mg 1 tab PO DAILY PRN celecoxib 200 mg PO DAILY cholecalciferol (vitamin D3) (Vitamin D3) 25 mcg PO DAILY cyanocobalamin (vitamin B-12) 1,000 mcg IM Q4W cyclobenzaprine 15 mg PO BEDTIME dronabinol 10 mg PO TID duloxetine 60 mg PO BEDTIME duloxetine 30 mg PO DAILY@0900 estradiol 1 mg PO DAILY galcanezumab-gnlm 120 mg subcut QMONTH hydrochlorothiazide 25 mg PO DAILY ondansetron 4 mg PO Q12H plecanatide (Trulance) 3 mg PO DAILY potassium citrate ER 20 mEq PO TID prazosin 1 mg PO BEDTIME sodium chloride 1,000 mg PO DAILY PRN sumatriptan succinate 100 mg PO DAILY PRN MDD 200 mg thiamine HCl (vitamin B1) 100 mg PO DAILY topiramate 100 mg PO DAILY valacyclovir 500 mg PO DAILY vibegron (Gemtesa) 75 mg PO DAILY zolpidem 10 mg PO BEDTIME HPI Comments Details: Patient is a 54-year-old female who is 2 months status post hiatal hernia repair performed on 04/30/2024. She reports she is following the meal plan as directed by Dr. Alvarez including 3 celebrate rebuild, 1 scoop shakes, a celebrate protein bar, a Yemeni yogurt or scrambled egg, and recently started on 7 forks of protein and 7 of vegetables. Was changed this Monday. Starting to have some nausea with the shakes, no vomiting. Occasionally a little pain when drinking around stomach, resolves after 45 minutes. She does not have problems with solid foods. No fevers. She offers no other significant complaints at today's visit. She does not take a vitamin currently. She reports some fatigue in the afternoons. Completed pantoprazole, no reflux currently. [facility] Medical History (Updated 06/25/24 @ 09:14 by MISSAEL Montilla) Anorexia Acute dehydration Ketosis Preprocedural examination Malnutrition Herpes DJD (degenerative joint disease) Anxiety Insomnia Migraines Epigastric abdominal pain Hypoglycemia Surgical History (Updated 06/05/24 @ 00:03 by Sonja Hartmann) Hx of hernia repair Hx of cholecystectomy Hx of spinal fusion History of fundoplication Hx of total knee replacement H/O cataract removal with insertion of prosthetic lens Hx of appendectomy History of carpal tunnel release Hx of eye surgery Hx of bladder repair surgery History of repair of hiatal hernia Hx of abdominal hysterectomy Hx of fusion of cervical spine Hx of endoscopy History of colonoscopy Family History Father History of cancer Mother Hx of heat stroke Social History Household Members: Spouse Housing: House Do you presently have visiting nurse or other home services: No Alcohol intake: current Alcohol intake frequency: holidays/special occasions only Patient Tobacco Use Status: Former Tobacco user Substance Use Type: Marijuana Advance Directives Date on File: 05/11/20 service: No Telehealth Telehealth Telehealth Platform: Telephone Location of provider rendering services: other Location of patient: address on file Patient Identification confirmed using: Name, : Yes Telehealth method: voice only Patient verbally consented to treatment: Yes Patient verbally consented to billing insurance company: Yes Patient informed of any privacy concerns related to visit: Yes Minutes spent on Phone/Video with Pt.: 15 Assessment & Plan Assessment & Plan (1) Hx of hernia repair: Comment: 04/30/24 diaphragmatic hernia Code(s): Z98.890 - Other specified postprocedural states; Z87.19 - Personal history of other diseases of the digestive system Category: Medical (2) Fatigue: Code(s): R53.83 - Other fatigue Category: Medical Plan Pt will discuss her nausea with current shakes with Dr. Bradley. May consider trying a different brand. I do not think she has a problem with her stomach as she tolerates yogurt, bar, and other solid foods without difficulty. Cleared for all activity, no restrictions. Labs ordered for complaint of fatigue and I suggested starting a women's MVI. Will monitor her symptoms of reflux off PPI. RTC 1 month, Jul 22 or at 9am. I spent a total of 30 minutes reviewing/updating records, examining the patient and counseling the patient on weight management as detailed above. Orders: Orders C Reactive Protein Today R53.83 - Other fatigue TSH reflex Free T4 Today R53.83 - Other fatigue Vitamin B12 and Folate Today R53.83 - Other fatigue Zinc Today R53.83 - Other fatigue Vitamin A Today R53.83 - Other fatigue Vitamin D 25-OH Total Today R53.83 - Other fatigue Complete Blood Count Auto Diff Today R53.83 - Other fatigue Comprehensive Met. Panel Today R53.83 - Other fatigue Vitamin B1 Today R53.83 - Other fatigue Ferritin Today R53.83 - Other fatigue
== END 2024-06-25 09:47 | disposition home or self-care (01) ==
LOC: HO.HBS 09:25
PROVIDERS: PCP Internal Medicine; Visit Provider Physician Assistant Surgical
DX: Z87.19 Personal history of other diseases of the digestive system (principal); Z98.890 Other specified postprocedural states; R53.83 Other fatigue
CPT/HCPCS: 99024

== ENCOUNTER 2024-06-28 08:41 | Outpatient (REF) | payer MEDICARE, MEDICAID, SELFPAY ==
[2024-06-28 09:54] LABS: MANUAL DIFF FLAG NO
[2024-06-28 10:37] LABS: Basophils Percent Auto 0.8 % (0-2); Eosinophils Absolute Auto 0.1 X10*3/uL (0.0-0.4); Eosinophils Percent Auto 2.2 % (0-4); Imm Gran Abs Auto 0.01 X10*3/uL (0.00-0.03); Imm Gran Pct Auto 0.2 % (0.0-0.4); Lymphocytes Absolute Auto 1.4 X10*3/uL (1.2-4.9); Mean Corpuscular HGB Conc 34.1 g/dl (31.0-35.0); Mean Corpuscular Hemoglobin 31.6 pg (27.0-33.0); Mean Corpuscular Volume 92.6 fL (80.0-98.0); Mean Platelet Volume 9.5 fL (9.4-12.3); Monocytes Absolute Auto 0.5 X10*3/uL (0.1-1.2); Monocytes Percent Auto 9.3 % (2-11); Neutrophils Percent Auto 59.5 % (45-73); Platelet Count 237 X10*3/uL (160-400); Red Blood Count 4.43 X10*6/uL (4.20-5.50); Red Cell Distribution Width 12.5 % (11.0-16.0)
[2024-06-28 11:14] LABS: Alanine Aminotransferase 20 U/L (0-31); Albumin Level 4.1 g/dL (3.5-5.0); Alkaline Phosphatase 92 U/L (39-117); Anion Gap 10 (12-20); Aspartate Amino Transferase 19 U/L (5-31); Bilirubin Total 0.2 mg/dL (0.0-1.0); Blood Urea Nitrogen 17 mg/dL (9-16); C Reactive Protein < 0.10 mg/dL (< or = 0.50); Calcium 9.9 mg/dL (8.4-10.2); Carbon Dioxide 24 mmol/L (22-29); Chloride 108 mmol/L (96-108); Estimated Glomerular Filt Rate > 60; Glucose Random 94 mg/dL (60-115); Potassium 4.9 mmol/L (3.3-5.1); Sodium 137 mmol/L (135-145); Total Protein 7.4 g/dL (6.5-8.0)
[2024-06-28 11:35] LABS: Ferritin 17 ng/mL (10-250); Vitamin D 25-OH Total 35.2 ng/mL (>30)
[2024-06-28 11:42] LABS: Folate 5.9 ng/mL (> or = 4.0); Vitamin B12 367 pg/mL (200-900)
[2024-07-03 03:09] LABS: Zinc 74 mcg/dL (60-130)
[2024-07-04 06:23] LABS: Vitamin A 53 mcg/dL (38-98)
[2024-07-05 16:22] LABS: Vitamin B1 8 nmol/L (8-30)
== END 2024-06-28 08:42 | disposition home or self-care (01) ==
LOC: HO.LAB 08:41
PROVIDERS: Physician Assistant Surgical; PCP Internal Medicine; Visit Provider Surgery
DX: R53.83 Other fatigue (principal); R06.81 Apnea, not elsewhere classified; K21.9 Gastro-esophageal reflux disease without esophagitis; K31.84 Gastroparesis; Z90.49 Acquired absence of other specified parts of digestive tract; K59.04 Chronic idiopathic constipation; E54 Ascorbic acid deficiency; E51.9 Thiamine deficiency, unspecified; Z98.890 Other specified postprocedural states; Z79.899 Other long term (current) drug therapy
CPT/HCPCS: 36415; 80053; 82306; 82607; 82728; 82746; 84425; 84443; 84590; 84630; 85025; 86140; 99212

== ENCOUNTER 2024-06-28 08:49 | Outpatient (AMB) | payer MEDICARE, MEDICAID, SELFPAY ==
--- NOTE | 2024-06-28 08:57 | A.OFFVIS_ITS ---
Vital Signs 06/28/24 09:01 Height 5 ft 5 in Weight 121 lb 4.068 oz BMI 20.2 BP 100/66 Blood Pressure Location Lt brachial Position Sitting Pulse 82 Intake Visit Reasons: 6 month f/u Intake Note: Lorie presents in the office as as 6 month follow up. CC: Would like to know if you can send her over Amoxicillin - no concerns at this time. Had hernia surgery in April. Allergies egg yolk Allergy (Mild, Verified 06/28/24 09:01) Unknown clarithromycin [From BIAXIN] Allergy (Unknown, Verified 06/28/24 09:01) SWELLING codeine [CODEINE] Allergy (Unknown, Verified 06/28/24 09:01) SWELLING egg [EGG] Allergy (Unknown, Verified 06/28/24 09:) SWELLING metoclopramide [From REGLAN] Allergy (Unknown, Verified 06/28/24 09:) SWELLING nortriptyline Allergy (Unknown, Verified 06/28/24 09:01) swelling raw eggs Allergy (Mild, Uncoded 06/28/24 09:01) unknown Biaxin Allergy (Unknown, Uncoded 06/28/24 09:01) unknown HPI HPI 6 month f/u: Details: 54 y/o f w gastroparesis, horseshoe kidney, hiatal hernia repair, cholecystectomy and chronic constipation being seen for f/u RECAP: she was initially seen by me at [facility] and had numerous Ix for abdominal sx was dx with gastroparesis she received endoscopic injection of botox for gastroparesis, she is unsure if helped c/o trouble swallowing both liquids and swallows, sometimes pain with swallowing pills worsening GERD worsening constipation, more pressure and straining required, has pain when trying to pass stools she has thought about manual disimpaction but never done it trulance didn;t help, restarted linalcotide for few months uncertain if helping EGD with esophageal/stomach dilation and botox injection MR defecogram was denied by insurance, she had tried pelvic floor exercises before Ba swallow: small hiatal hernia, pill went down easy, small amount of reflux CT with appendiceal fecolith, had appendectomy she had been referred to endocrine due to shaking episodes, sweaty and pale, feeling low, and has to take sugary items, never checked her blood sugar--work up in progress she was on motegrity 2 mg but didn't help she has been on linaclotide and its helping again she has had more acid reflux, had to be off PPI for tests appetite is variable stressed out due to covid, worried abt son on front line things are stable so far following up with endocrine for eval for insulinoma assessment I also gave her azithromycin as pro motility agent in case of flares of gastroparesis H pylori breath test was negative INTERIM: recovering from hernia repair surgery still she feels more constipated since surgery she struggles with passing stool azithormycin occasionally helps she is taking thiamine capsules v happy, son had a baby EXAM: GENERAL: The patient is well developed and nontoxic. VITAL SIGNS:see workflow HEENT: Nonicteric sclerae, PERRLA, EOMI. Oropharynx clear. Moist mucous membranes. Conjunctivae appear well perfused. No thyroid mass. CHEST: Chest wall is nontender. HEART: Regular rate and rhythm without murmurs. LUNGS: Clear to auscultation bilaterally. ABDOMEN: Soft, positive bowel sounds, nontender, no organomegaly.no flank tenderness SKIN: No rash, no excessive bruising, petechiae, or purpura. NEUROLOGIC: Cranial nerves II-XII intact without motor/sensory deficit. Assessment & Plan 1/ Gastroparesis: improvement with azithromycin prn 2/ GERD related to 1/ above--controlled 3/ constipation, worse since surgery 4/ vit C def, thiamine defc Plan: 1/ cont with omeprazole, but can take prn or few times a week 2/ cont with azithormycin prn 3/ alternate between linaclotide and trulance 4/ discussed possible sleep study due to fatigue, she will monitor 5/ repeat labs pending on thiamine from Dr Mirna ANN Medical History Anorexia Acute dehydration Ketosis Preprocedural examination Malnutrition Herpes DJD (degenerative joint disease) Anxiety Insomnia Migraines Epigastric abdominal pain Hypoglycemia Surgical History Hx of hernia repair Hx of cholecystectomy Hx of spinal fusion History of fundoplication Hx of total knee replacement H/O cataract removal with insertion of prosthetic lens Hx of appendectomy History of carpal tunnel release Hx of eye surgery Hx of bladder repair surgery History of repair of hiatal hernia Hx of abdominal hysterectomy Hx of fusion of cervical spine Hx of endoscopy History of colonoscopy Family History Father History of cancer Mother Hx of heat stroke Social History Household Members: Spouse Housing: House Do you presently have visiting nurse or other home services: No Alcohol intake: current Alcohol intake frequency: holidays/special occasions only Patient Tobacco Use Status: Former Tobacco user Substance Use Type: Marijuana Advance Directives Date on File: 05/11/20 service: No Physical Exam Vital Signs: Last Vital Signs Pulse 82 06/28/24 09:01 BP 100/66 06/28/24 09:01 BMI result Body Mass Index 20.2 Assessment & Plan Assessment & Plan (1) GERD with apnea without esophagitis: Code(s): K21.9 - Gastro-esophageal reflux disease without esophagitis; R06.81 - Apnea, not elsewhere classified Category: Medical Plan: see above Medications: New azithromycin 500 mg PO DAILY 14 days 14 tabs 0RF linaclotide 290 mcg PO DAILY 90 caps 1RF Coding Level of Care Code Est Pt Level 4 (55889) Diagnoses GERD with apnea without esophagitis K21.9; R06.81
[2024-06-28 09:01] VITALS: BP 100/66; PULSE 82; BMI 20.2
== END 2024-06-28 09:29 | disposition home or self-care (01) ==
PROVIDERS: PCP Internal Medicine; Visit Provider Internal Medicine Gastroenterology
DX: K21.9 Gastro-esophageal reflux disease without esophagitis (principal); R06.81 Apnea, not elsewhere classified
CPT/HCPCS: 99214

== ENCOUNTER 2024-07-22 09:13 | Outpatient (AMB) | payer MEDICARE, MEDICAID, SELFPAY ==
--- NOTE | 2024-07-22 09:09 | MHC.OFFVISWM ---
VS Expanded 07/22/24 09:12 Height 5 ft 5 in Weight 121 lb BMI 20.1 Intake Visit Reasons: TV Diaphragmatic PO S/P Allergies egg yolk Allergy (Mild, Verified 06/28/24 09:01) Unknown clarithromycin [From BIAXIN] Allergy (Unknown, Verified 06/28/24 09:01) SWELLING codeine [CODEINE] Allergy (Unknown, Verified 06/28/24 09:01) SWELLING egg [EGG] Allergy (Unknown, Verified 06/28/24 09:01) SWELLING metoclopramide [From REGLAN] Allergy (Unknown, Verified 06/28/24 09:01) SWELLING nortriptyline Allergy (Unknown, Verified 06/28/24 09:01) swelling raw eggs Allergy (Mild, Uncoded 06/28/24 09:01) unknown Biaxin Allergy (Unknown, Uncoded 06/28/24 09:01) unknown Medication List - Last Reconciled 07/22/24 by MISSAEL Montilla acetaminophen ER 650 mg PO Q12H PRN alprazolam 0.5 mg PO DAILY azithromycin 500 mg PO DAILY 14 days bupropion HCl XL 300 mg PO DAILY bupropion HCl XL 150 mg PO DAILY hyqbnvooim-fntnixpgnuxwp-zmqs 50-325-40 mg 1 tab PO DAILY PRN calcium citrate 400 mg PO DAILY celecoxib 200 mg PO DAILY cholecalciferol (vitamin D3) (Vitamin D3) 25 mcg PO DAILY cyanocobalamin (vitamin B-12) 1,000 mcg IM Q4W cyclobenzaprine 15 mg PO BEDTIME dronabinol 10 mg PO TID duloxetine 60 mg PO BEDTIME duloxetine 30 mg PO DAILY@0900 estradiol 1 mg PO DAILY galcanezumab-gnlm 120 mg subcut QMONTH hydrochlorothiazide 25 mg PO DAILY linaclotide 290 mcg PO DAILY ondansetron 4 mg PO Q12H plecanatide (Trulance) 3 mg orally every other day; potassium citrate ER 20 mEq PO TID prazosin 1 mg PO BEDTIME sodium chloride 1,000 mg PO DAILY PRN sumatriptan succinate 100 mg PO DAILY PRN MDD 200 mg thiamine HCl (vitamin B1) 100 mg PO DAILY topiramate 100 mg PO DAILY valacyclovir 500 mg PO DAILY vibegron (Gemtesa) 75 mg PO DAILY zolpidem 10 mg PO BEDTIME HPI Comments Details: Patient is a 54-year-old female who is 3 months status post hiatal hernia repair performed on 04/30/2024. She reports she is following the meal plan as directed by Dr. Alvarez including 3 celebrate rebuild, 1 scoop shakes, a celebrate protein bar, a Kiswahili yogurt or scrambled egg, and 7 forks of protein and 7 of vegetables. Previous episodes of occasional nausea and pain have resolved. She offers no other significant complaints at today's visit. Started a MVI. She reports some ongoing fatigue, comes and goes but now may be back to baseline from what she experienced prior to surgery. Completed pantoprazole, no reflux. [facility] Medical History Anorexia Acute dehydration Ketosis Preprocedural examination Malnutrition Herpes DJD (degenerative joint disease) Anxiety Insomnia Migraines Epigastric abdominal pain Hypoglycemia Surgical History Hx of hernia repair Hx of cholecystectomy Hx of spinal fusion History of fundoplication Hx of total knee replacement H/O cataract removal with insertion of prosthetic lens Hx of appendectomy History of carpal tunnel release Hx of eye surgery Hx of bladder repair surgery History of repair of hiatal hernia Hx of abdominal hysterectomy Hx of fusion of cervical spine Hx of endoscopy History of colonoscopy Family History Father History of cancer Mother Hx of heat stroke Social History Household Members: Spouse Housing: House Do you presently have visiting nurse or other home services: No Alcohol intake: current Alcohol intake frequency: holidays/special occasions only Patient Tobacco Use Status: Former Tobacco user Substance Use Type: Marijuana Advance Directives Date on File: 05/11/20 service: No Telehealth Telehealth Telehealth Platform: Telephone Location of provider rendering services: practice address Location of patient: address on file Patient Identification confirmed using: Name, : Yes Telehealth method: voice only Patient verbally consented to treatment: Yes Patient verbally consented to billing insurance company: Yes Patient informed of any privacy concerns related to visit: Yes Minutes spent on Phone/Video with Pt.: 15 Assessment & Plan Assessment & Plan (1) Hx of hernia repair: Comment: 04/30/24 diaphragmatic hernia Code(s): Z98.890 - Other specified postprocedural states; Z87.19 - Personal history of other diseases of the digestive system Category: Surgical Plan Pt will ask Dr Bradley next week about his plan for expanding her meal plan. At that point she will be 3 months postop. Labs reviewed, no vitamin deficiencies or anemia, pt has started MVI. No reflux off PPI. RTC 3 months for 6mo visit, pt to call with any concerns prior to that. I spent a total of 30 minutes reviewing/updating records, examining the patient and counseling the patient on weight management as detailed above.
[2024-07-22 09:12] VITALS: BMI 20.1
== END 2024-07-22 09:30 | disposition home or self-care (01) ==
LOC: HO.HBS 09:13
PROVIDERS: PCP Internal Medicine; Visit Provider Physician Assistant Surgical
DX: Z87.19 Personal history of other diseases of the digestive system (principal)
CPT/HCPCS: 99024

== ENCOUNTER 2024-12-16 09:05 | Outpatient (AMB) | payer MEDICARE, MEDICAID, SELFPAY ==
--- NOTE | 2024-12-16 09:07 | MHC.OFFVIS ---
Vital Signs 12/16/24 09:08 Height 5 ft 5 in Weight 127 lb 13.89 oz BMI 21.3 BP 96/61 Blood Pressure Location Lt brachial Position Sitting Pulse 96 Intake Visit Reasons: 6 mnth follow up Intake Note: Lorie presents in the office as a 6 month follow up. CC: Just needs refills - states she has been doing good. Cat Scan Technologist Required: No Allergies egg yolk Allergy (Mild, Verified 12/16/24 09:08) Unknown clarithromycin [From BIAXIN] Allergy (Unknown, Verified 12/16/24 09:08) SWELLING codeine [CODEINE] Allergy (Unknown, Verified 12/16/24 09:08) SWELLING egg [EGG] Allergy (Unknown, Verified 12/16/24 09:08) SWELLING metoclopramide [From REGLAN] Allergy (Unknown, Verified 12/16/24 09:08) SWELLING nortriptyline Allergy (Unknown, Verified 12/16/24 09:08) swelling raw eggs Allergy (Mild, Uncoded 12/16/24 09:08) unknown Biaxin Allergy (Unknown, Uncoded 12/16/24 09:08) unknown HPI HPI 6 mnth follow up: Details: 54 y/o f w gastroparesis, horseshoe kidney, hiatal hernia repair, cholecystectomy and chronic constipation being seen for f/u RECAP: she was initially seen by me at [facility] and had numerous Ix for abdominal sx was dx with gastroparesis she received endoscopic injection of botox for gastroparesis, she is unsure if helped c/o trouble swallowing both liquids and swallows, sometimes pain with swallowing pills worsening GERD worsening constipation, more pressure and straining required, has pain when trying to pass stools she has thought about manual disimpaction but never done it trulance didn;t help, restarted linalcotide for few months uncertain if helping EGD with esophageal/stomach dilation and botox injection MR defecogram was denied by insurance, she had tried pelvic floor exercises before Ba swallow: small hiatal hernia, pill went down easy, small amount of reflux CT with appendiceal fecolith, had appendectomy she had been referred to endocrine due to shaking episodes, sweaty and pale, feeling low, and has to take sugary items, never checked her blood sugar--work up in progress she was on motegrity 2 mg but didn't help she has been on linaclotide and its helping again she has had more acid reflux, had to be off PPI for tests appetite is variable stressed out due to covid, worried abt son on front line things are stable so far following up with endocrine for eval for insulinoma assessment I also gave her azithromycin as pro motility agent in case of flares of gastroparesis H pylori breath test was negative INTERIM: no major concerns very occasionally has trouble swallowing maybe once a month usu with solids no issues with constipation heartburn is much improved she is taking thiamine capsules she has osteoporosis EXAM: GENERAL: The patient is well developed and nontoxic. VITAL SIGNS:see workflow HEENT: Nonicteric sclerae, PERRLA, EOMI. Oropharynx clear. Moist mucous membranes. Conjunctivae appear well perfused. No thyroid mass. CHEST: Chest wall is nontender. HEART: Regular rate and rhythm without murmurs. LUNGS: Clear to auscultation bilaterally. ABDOMEN: Soft, positive bowel sounds, nontender, no organomegaly.no flank tenderness SKIN: No rash, no excessive bruising, petechiae, or purpura. NEUROLOGIC: Cranial nerves II-XII intact without motor/sensory deficit. Assessment & Plan 1/ Gastroparesis: improvement with azithromycin prn 2/ GERD related to 1/ above--controlled 3/ constipation, controlled 4/ vit C def, thiamine defc --taking supplements Plan: 1/ cont with omeprazole, but can take prn or few times a week 2/ cont with azithormycin prn 3/ alternate between linaclotide and trulance 4/ order zolendronic acid, she lives close to here and would prefer rx here --get bone scan [facility] Medical History Anorexia Acute dehydration Ketosis Preprocedural examination Malnutrition Herpes DJD (degenerative joint disease) Anxiety Insomnia Migraines Epigastric abdominal pain Hypoglycemia Surgical History Hx of hernia repair Hx of cholecystectomy Hx of spinal fusion History of fundoplication Hx of total knee replacement H/O cataract removal with insertion of prosthetic lens Hx of appendectomy History of carpal tunnel release Hx of eye surgery Hx of bladder repair surgery History of repair of hiatal hernia Hx of abdominal hysterectomy Hx of fusion of cervical spine Hx of endoscopy History of colonoscopy Family History Father History of cancer Mother Hx of heat stroke Social History Household Members: Spouse Housing: House Do you presently have visiting nurse or other home services: No Alcohol intake: current Alcohol intake frequency: holidays/special occasions only Patient Tobacco Use Status: Former Tobacco user Substance Use Type: Marijuana Advance Directives Date on File: 05/11/20 service: No Physical Exam Vital Signs: Last Vital Signs Pulse 96 12/16/24 09:08 BP 96/61 12/16/24 09:08 BMI result Body Mass Index 21.3 Assessment & Plan Assessment & Plan (1) GERD with apnea without esophagitis: Code(s): K21.9 - Gastro-esophageal reflux disease without esophagitis; R06.81 - Apnea, not elsewhere classified Category: Medical Plan: as above Coding Level of Care Code Est Pt Level 3 (85735) Diagnoses GERD with apnea without esophagitis K21.9; R06.81
[2024-12-16 09:08] VITALS: BP 96/61; PULSE 96; BMI 21.3
--- OUTSIDE RECORDS SUMMARY | 2024-12-16 09:14 | XMS_ITS | Encounter Summary ---
Author Organization [facility] Address [address] [place] [address] Care Team Providers Care Shipping Support Name Role Phone Jenn Coleman MD Primary Care Provider [phone] Encounter Details Date Type Department Care Team (Late st Contact Info) Description 07/03/2024 Lab Requisition [facility] [address] [facility] [place] [phone] Roselyn Gallagher NP [address] [address] Frequency of micturition Social History Tobacco Use Types Packs/Day Years Used Date Smoking Tobacco: Never Assessed Comments Unknown Sex and Gender Information Value Date Recorded Sex Assigned at Female 07/29/2024 4:40 PM EST Legal Sex Female 10:13 AM EST Gender Identity Female 07/29/2024 4:40 PM EST Sexual Orientation Straight 07/29/2024 4: 40 PM EST documented as of this encounter Plan of Treatment Upcoming Encounters Date Type Department Care Team (Latest Contact Info) Description 03/03/2025 9:00 AM EDT Hospital Encounter [facility] OR [address] [place] [phone] Cassandra Pantoja MD [address] [place] [address] 03/03/2025 9:00 AM EDT - 03/03/2025 10:30 AM EDT Surgery [facility] OR [address] [place] [address] Cassandra Pantoja MD [address] [facility] [address] [place] [address] CYSTOSCOPY,BOTOX 100 UNITS, HYDRODISTENTION [33004 (CPT??) +2 more] Scheduled Procedures Name Priority Associated Diagnoses Date/Ti me CYSTOSCOPY INJECTION BOTULIN UM TOXIN Overactive bladder 03/03/2025 9:00 AM EDT documented as of this encounter Procedures Procedure Name Priority Date/Time Associated Diagnosis Comments CULTURE URINE Routine 07/03/2024 12:00 AM EST Frequency of micturition documented in this encounter Results * Culture urine (07/03/2024 12:00 AM EST) Culture, Urine No growth 07/04/2024 1:57 PM EST [facility] Urine Urine specimen obtained by clean catch procedure / Unknown 07/03/2024 07/03/2024 5:44 PM EST us Roeslyn Gallagher [facility] MICROBIOLOGY - GENERA L ORDERABLES Final Result [facility] [address] [place] [address], documented in this encounter Visit Diagnoses Diagnosis Frequency of micturition Urinary frequency Overactive bladder Hypertonicity of bladder documented in this encounter Care Teams Shipping Support Relationship Specialty Start Date End Date Jenn Coleman [place] [phone] PCP - General Internal Medicine 07/29/24 documented as of this encounter
--- OUTSIDE RECORDS SUMMARY | 2024-12-16 09:14 | XMS_ITS | Encounter Summary ---
Author Organization [facility] Address [address] [place] [address] Phone Care Team Providers Care Wafer Fabrication Operator Name Role Phone Jenn Coleman MD Primary Care Provider [phone] Encounter Details Date Type Department Care Team (Late st Contact Info) Description 09/18/2020 Orders Only [facility] [address] [facility] [address] [place] [phone] Provider, MD Red [address] [place] [address] Social History Tobacco Use Types Packs/Day Years Used Date Smoking Tobacco: Former Comments:Smoking History Inf o:Unknown Alcohol Use Standard Drinks/Week Comments Yes 0 (1 standard drink = 0.6 oz pure alcohol) Alcoholic Drinks/day: Occasional social drink Comments Unknown Sex and Gender Information Value Date Recorded Sex Assigned at Not on file Legal Sex Female 5:18 PM EST Gender Identity Not on file Sexual Orientation Not on file documented as of this encounter Plan of Treatment Upcoming Encounters Date Type Department Care Team (Late st Contact Info) Description 02/05/2025 7:30 AM EDT Office Visit [facility] [address] [phone] Ashwini Stone ARNP [address] [phone] documented as of this encounter Procedures Procedure Name Priority Date/Time Associated Diagnosis Comments EXT RESULT ENTRY Routine 09/09/2020 documented in this encounter Results * EXT RESULT ENTRY (09/09/2020) us Historical Provider LAB BLOOD ORDERABLES Amee l Result documented in this encounter Visit Diagnoses Not on filedocumented in this encounter Care Teams Wafer Fabrication Operator Relationship Specialty Start Date End Date Jenn Coleman MD [address] [place] [phone] PCP - General 08/17/20 documented as of this encounter
--- OUTSIDE RECORDS SUMMARY | 2024-12-16 09:14 | XMS_ITS | Clinical Summary ---
Author Organization [facility] Address [address] [facility] [address] [place] [address] Phone Care Team Providers Care Dog Day Care Attendant Name Role Phone Jenn Coleman MD Primary Care Provider [phone] Allergies Active Allergy Reactions Criticality Noted Date Comments Clarithromycin Other (see comments) 12/25/2020 Codeine Other (see comments) 09/29/2011 nausea, vomitting + hives Egg Shells Other (see comments) 12/25/2020 Gabapentin Other (see comments) High 09/17/2015 dizziness, fatigue, nightmares Metoclopramide Other (see comments) High 05/07/2014 tingling Valproic Acid Other (see comments) 09/29/2011 nausea,vomitting + black out Medications buPROPion XL (WELLBUTRIN XL) 150 MG 24 hr tablet 12/24/19 21 Active butalbital-acet aminophen-caffe ine (FIORICET, ESGIC) 50-325-40 MG per tablet TAKE ONE TABLET BY MOUTH EVERY 6 HOURS NEEDED 12/16/19 21 Active cholecalciferol (VITAMIN D-3) 25 MCG (1000 UT) tablet Take 1,000 Units by mouth 1 (one) time each day 12/15/19 21 Active zolpidem (AMBIEN) 10 MG tablet Take 10 mg by mouth at bed time 12/15/19 21 Active topiramate (TOPAMAX) 50 MG tablet Take 50 mg by mouth 1 (one) time each day 11/11/19 21 Active B-D 3CC LUER-CONCEPCION SYR 25GX1 25G X 1 3 ML misc TO BE USED MONTHLY FOR B12 INJECTIONS 10/01/19 21 Active prazosin (MINIPRESS) 1 MG capsule 12/11/19 21 Active ondansetron ODT (ZOFRAN-ODT) 4 MG dispersible tablet DISSOLVE ONE TABLET BY MOUTH EVERY 4 HOURS NEEDED FOR NAUSEA AND VOMITING 12/15/19 21 Active omeprazole (PriLOSEC) [address] capsule 12/18/19 21 Active Emgality 120 MG/ML solution auto-injector INJECT 120 MG (1 PEN) SUBCUTANEOUSLY EVERY MONTH DIRECTED. 12/15/19 21 Active estradiol (ESTRACE) 2 MG tablet 12/07/19 21 Active DULoxetine (CYMBALTA) [address] capsule 12/24/19 21 Active dronabinol (MARINOL) 10 MG capsule Take 10 mg by mouth 3 times a day 12/15/19 21 Active cyclobenzaprine (FLEXERIL) 5 MG tablet TAKE ONE TO TWO TABLETS BY MOUTH THREE TIMES A DAY NEEDED FOR SEVERE PAIN 12/15/19 21 Active cyanocobalamin (VITAMIN B-12) 1000 MCG/ML injection INJECT ONE ML INTRAMUSCULARLY EVERY 28 DAYS 11/27/19 22 Active valACYclovir (VALTREX) 500 MG tablet Take 500 mg by mouth 1 (one) time each day 12/12/19 22 Active potassium citrate 10 MEQ (1080 MG) CR tabletIndicatio ns:Renal stone,Hypokalem ia Take 2 tablets (20 mEq total) by mouth in the morning and 2 tablets (20 mEq total) at noon and 2 tablets (20 mEq total) in the evening. Take with meals. Do not crush, chew, or split.. 540 tablet 3 02/06/20 24 025 Active hydroCHLOROthia zide (HYDRODIURIL) 50 MG tabletIndicatio ns:Renal stone,Hypokalem ia Take 0.5 tablets (25 mg total) by mouth 1 (one) time each day 90 tablet 3 02/06/20 24 Active Active Problems Problem Noted Date Diagnosed Date Hyperkalemia 02/06/2024 Hypokalemia 02/06/2024 Assessment & Plan (02/06/2024 11:29 PM EDT): Low K 3.3 as of 01/30/24 Increasing dietary K intake Resume Potassium Citrate 20 meq BID Recheck BMP in 1 week Chronic kidney disease stage 2 12/25/2020 Overview (02/06/2024): In the setting of horseshoe kidney w/ LPHS Avoid Nephrotoxins Assessment & Plan (02/06/2024 11:34 PM EDT): Creat 1.0, eGFR 76 as of 01/06 No Anemia Normal Ca 9.7 Normal Blood pressure Check Urine alb/creat ratio Loin pain-hematuria syndrome 12/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 Renal stone 12/25/2020 Assessment & Plan (02/06/2024 11:32 PM EDT): Continue HCTZ 25 mg QD Resume Potassium citrate 20 meq BID Increase water intake Last Renal US in May 2023 - followed by Urology Chronic abdominal pain 12/26/2013 Overview (12/25/2020): Chronic abdominal pain Gastroparesis 12/26/2013 Overview (12/25/2020): Gastroparesis Immunizations Immunization Administration Dates Next Due Zoster 06/25/2020,04/25/2020 Family History Medical History Relation Comments Cancer Father espophageal Heart disease Father Hypertension Father Cancer Mother breast Diabetes Mother Hypertension Mother Stroke Mother Kidney disease Sibling 1 sister ESRD with Transplant Gout Sibling 2 possibly brother Relation Status Comments Father Mother Sibling 1 Sibling 2 Social History Tobacco Use Types Packs/Day Years Used Date Smoking Tobacco: Former Smokeless Tobacco: Never Comments:Smoking History Inf o:Unknown Alcohol Use Standard Drinks/Week Comments Yes 0 (1 standard drink = 0.6 oz pure alcohol) Alcoholic Drinks/day: Occasional social drink Comments Unknown Sex and Gender Information Value Date Recorded Sex Assigned at Not on file Legal Sex Female 5:18 PM EST Gender Identity Not on file Sexual Orientation Not on file Last Filed Vital Signs Vital Sign Reading Time Taken Comments Blood Pressure 119/60 02/06/2024 7:55 AM EDT Pulse 76 02/06/2024 7:55 AM EDT Temperature - - Respiratory Rate - - Oxygen Saturation 98% 02/06/2024 7:55 AM EDT Inhaled Oxygen Concentration - - Weight 57.2 kg (126 lb 3.2 oz) 02/06/2024 7:55 A M EDT Height 165.1 cm (5' 5 ) 12/25/2020 2:16 PM EDT Body Mass Index 21 12/25/2020 2:16 PM EDT Plan of Treatment Upcoming Encounters Date Type Department Care Team (Late st Contact Info) Description 02/05/2025 7:30 AM EDT Office Visit [facility] [address] [phone] Ashwini Stone ARNP [address] [phone] Health Maintenance Due Date Last Done Comments Breast Cancer Screening 1970 Hepatitis B Vaccine (1 of 3 - 19+ 3-dose series) 1989 Colorectal Cancer Screening: Annual FOBT 2019 Colorectal Cancer Screening: Colonoscopy 2019 Colorectal Cancer Screening: Sigmoidoscopy 2019 Pneumococcal Vaccine: 50+ Ye ars (3 of 3 - PCV) 09/03/2021 09/03/2020, 08/15/2013 Influenza Vaccine (Season Ended) 2025 04/25/20 20, 05/01/2019 Pneumococcal Vaccine: Peds ( 0 to 5 Years) and At-Risk Patients (6 to 49 Years) Discontinued 09/03/2020, 08/15/2013 Insurance Medicare Medicaid [place] Medicare Medicaid [place] Care Teams Dog Day Care Attendant Relationship Specialty Start Date End Date Jenn Coleman MD [address] [place] [phone] PCP - General 08/17/20
--- OUTSIDE RECORDS SUMMARY | 2024-12-16 09:14 | XMS_ITS | Clinical Summary ---
Author Organization [address] Address [address] [place] [address] Phone Care Team Providers Care Jewel Sawyer Name Role Phone Jenn Coleman MD Primary Care Provider [phone] Allergies Active Allergy Reactions Criticality Noted Date Comments Clarithromycin GI intolerance,Diarrhea,Hiv es,Other,Swelling High 09/29/2011 nausea,vomitting + hives Codeine GI bleeding,Hives,Other High 09/29/2011 nausea, vomitting + hives Divalproex Swelling High 07/17/2024 Metoclopramide Angioedema,Nausea An d Vomiting,Other,Swallowin g Problem High 05/07/2014 tingling tingling Nortriptyline Itching Medium 07/17/2024 Medications droNABinol (MARINOL) 10 mg capsule Take 1 capsule (10 mg total) by mouth 3 (three) times a day. Active butalbital-acetami nophen-caffeine (FIORICET, ESGIC) 50-325-40 mg per tablet Take 1 tablet by mouth every 6 (six) hours if needed. 12/16/19 21 Active ALPRAZolam (XANAX) 0.5 mg tablet Take 1 tablet (0.5 mg total) by mouth 2 (two) times a day. 02/17/20 22 Active cyanocobalamin, vitamin B-12, 1,000 mcg tablet, sublingual 1,000 mcg by subcutaneous (via wearable injector) route every 30 (thirty) days. 11/20/19 15 Active DULoxetine (CYMBALTA) [address] capsule Take 1 capsule (30 mg total) by mouth 1 (one) time each day. 12/24/19 21 Active EPINEPHrine (EpiPen 2-Dann) 0.3 mg/0.3 mL injection Inject 0.3 mL (0.3 mg total) into the thigh if needed. 09/11/19 14 Active estradioL (ESTRACE) 2 mg tablet Take 1 tablet (2 mg total) by mouth 1 (one) time each day. 12/27/19 14 Active Emgality Pen 120 mg/mL injection pen Inject 1 mL (120 mg total) under the skin every 28 (twenty-eight) days. 12/15/19 21 Active hydroCHLOROthiazid e (MICROZIDE) 12.5 mg capsule 2 capsules (25 mg total) 1 (one) time each day in the morning. 01/13/20 21 Active linaCLOtide (LINZESS) 290 mcg capsule Take 1 capsule (290 mcg total) by mouth daily. 10/13/19 17 Active omeprazole (PriLOSEC) [address] capsule Take 1 capsule (40 mg total) by mouth 1 (one) time each day. Active ondansetron ODT (ZOFRAN-ODT) 4 mg disintegrating tablet Take 1 tablet (4 mg total) by mouth every 12 (twelve) hours if needed for nausea. DISSOLVE ONE TABLET BY MOUTH EVERY 12 HOURS NEEDED FOR NAUSEA AND VOMITING Active oxyCODONE-acetamin ophen (PERCOCET) 5-325 mg per tablet 1 tablet every 8 (eight) hours if needed. 01/11/20 24 Active topiramate (TOPAMAX) 100 mg tablet Take 1 tablet (100 mg total) by mouth 2 (two) times a day. Active vibegron (GEMTESA) 75 mg tablet tablet Take 1 tablet (75 mg total) by mouth 1 (one) time each day. 08/24/19 23 Active valACYclovir (VALTREX) 500 mg tablet Take 1 tablet (500 mg total) by mouth 1 (one) time each day. Active prazosin (MINIPRESS) 1 mg capsule Take 1 capsule (1 mg total) by mouth 3 (three) times a day. Active potassium citrate (UROCIT-K) 10 mEq (1,080 mg) CR tablet Take 2 tablets (20 mEq total) by mouth 3 (three) times a day with meals. Do not crush, chew, or split. Active Surgical History Surgery Date Site/Laterality Comments CHOLECYSTECTOMY APPENDECTOMY EYE SURGERY COLONOSCOPY UPPER GASTROINTESTINAL ENDOSCOPY CARPAL TUNNEL RELEASE LUMBAR FUSION CERVICAL FUSION BLADDER SUSPENSION HYSTERECTOMY SPINE SURGERY CYSTOSCOPY KIDNEY STONE SURGERY LITHOTRIPSY HERNIA REPAIR JOINT REPLACEMENT 08/07/2021 - 08/06/2022 Right Medical History Medical History Date Comments PONV (postoperative nausea and vomiting) GERD (gastroesophageal reflux disease) Gastroesophagitis Irritable bowel syndrome Anxiety Depression Arthritis Joint pain Fibromyalgia Social History Tobacco Use Types Packs/Day Years Used Date Smoking Tobacco: Former Cigarettes Q uit: 08/08/1989 Tobacco Cessation:Counseling Given: Not Answered Alcohol Use Standard Drinks/Week Comments Not Asked 0 (1 standard drink = 0.6 oz pur e alcohol) rarely Interpersonal Safety Answer Date Record ed Physical Abuse 08/08/2024 Verbal Abuse 08/08/2024 Comments No Sex and Gender Information Value Date Recorded Sex Assigned at Female 07/29/2024 4:40 PM EST Legal Sex Female 10:13 AM EST Gender Identity Female 07/29/2024 4:40 PM EST Sexual Orientation Straight 07/29/2024 4: 40 PM EST Obstetrics History Last Filed Vital Signs Vital Sign Reading Time Taken Comments Blood Pressure 97/44 08/08/2024 9:58 AM EST Pulse 78 08/08/2024 9:58 AM EST Temperature 36.3 ??C (97.3 ??F) 08/08/2024 9:58 AM ES T Respiratory Rate 18 08/08/2024 9:58 AM EST Oxygen Saturation 98% 08/08/2024 9:58 AM EST Inhaled Oxygen Concentration - - Weight 54.9 kg (121 lb) 07/17/2024 12:00 PM EST Height 165.1 cm (5' 5 ) 07/17/2024 12:00 PM EST Body Mass Index 20.14 07/17/2024 12:00 PM EST Plan of Treatment Upcoming Encounters Date Type Department Care Team (Latest Contact Info) Description 03/03/2025 9:00 AM EDT Hospital Encounter [facility] [address] [place] [phone] Cassandra Pantoja MD [address] [facility] [address] [place] [address] 03/03/2025 9:00 AM EDT - 03/03/2025 10:30 AM EDT Surgery [facility] OR [address] [place] [phone] Cassandra Pantoja MD [address] [place] [id number] [employer] [id number] CYSTOSCOPY,BOTOX 100 UNITS, HYDRODISTENTION [90227 (CPT??) +2 more] Scheduled Procedures Name Priority Associated Diagnoses Date/Ti me CYSTOSCOPY INJECTION BOTULIN UM TOXIN Overactive bladder 03/03/2025 9:00 AM EDT Health Maintenance Due Date Last Done Comments Breast Cancer Screening 1970 Hepatitis B Vaccines (1 of 3 - 19+ 3-dose series) 1989 Cervical Cancer Screening: Pap Smear 1991 Zoster Vaccines (2 of 3) 08/20/2020 06/25/2020, 04/07 Pneumococcal Vaccine: 50+ Years (2 of 2 - PCV) 09/03/2021 09/03/2020, 08/15/2013 COVID-19 Vaccine (2 - season) 2024 11/10/2021 Colorectal Cancer Screening: Colonoscopy 05/15/2024 Depression Screening 05/15/2024 HIV Screening 05/15/2024 Hepatitis C Screening 05/15/2024 Medicare Annual Wellness Visit 05/15/2024 Social Influencers of Health Screening 05/15/2024 Influenza Vaccine (Season Ended) 2025 04/15/2022, 04/25/2020, 05/01/2019, Additional history exists DTaP,Tdap,and Td Vaccines (3 - Td or Tdap) 01/14/2033 01/14/2023, 11/24/2017 Pneumococcal Vaccine: Pediatrics (0 to 5 Years) and At-Risk Patients (6 to 64 Years) Aged Out 09/03/2020, 08/15/2013 No longer eligibl e based on patient's age to complete this topic HIB Vaccines Aged Out No longer eligi ble based on patient's age to complete this topic HPV Vaccines Aged Out No longer eligi ble based on patient's age to complete this topic Hepatitis A Vaccines Aged Out No long er eligible based on patient's age to complete this topic IPV Vaccines Aged Out No longer eligi ble based on patient's age to complete this topic MMR Vaccines Aged Out No longer eligi ble based on patient's age to complete this topic Meningococcal ACWY Vaccine Aged Out N o longer eligible based on patient's age to complete this topic Meningococcal B Vaccine Aged Out No l onger eligible based on patient's age to complete this topic RSV Immunization Patients Under 20 months Aged Out No longer eligible based on patient's age to complete this topic Varicella Vaccines Aged Out No longer eligible based on patient's age to complete this topic Medical Devices Implanted Type Area Supervisor Nurse Device Identifier Shelf Expiration Date Model / Serial / Lot Joints Knee Joints Knee Right: Knee Spinal Hardware Spinal Hardware N/A: Back Insurance MEDICAID - [place] MEDICARE [employer] MEDICARE ADVANTAGE on file Care Teams Jewel Sawyer Relationship Specialty Start Date End Date Jenn Coleman MD [address] [place] [phone] PCP - General Internal Medicine 07/29/24
== END 2024-12-16 09:29 | disposition home or self-care (01) ==
LOC: HO.HGI 09:06
PROVIDERS: PCP Internal Medicine; Visit Provider Internal Medicine Gastroenterology
DX: K21.9 Gastro-esophageal reflux disease without esophagitis (principal); R06.81 Apnea, not elsewhere classified
CPT/HCPCS: 99213

== ENCOUNTER → 2024-12-16 09:05 | Outpatient (BNVA) | payer MEDICARE, MEDICAID, SELFPAY | PROVIDERS: PCP Internal Medicine; Visit Provider Internal Medicine Gastroenterology | DX: K21.9 Gastro-esophageal reflux disease without esophagitis (principal); R06.81 Apnea, not elsewhere classified | CPT/HCPCS: 99212 ==

== ENCOUNTER 2025-01-03 13:36 | Outpatient (RCR) | payer MEDICARE, MEDICAID, SELFPAY ==
[2025-01-03 13:42] VITALS: BP 108/65; PULSE 85; RESP 16; TEMP 36.6; O2SAT 99
[2025-01-03 14:15] LABS: Blood Urea Nitrogen 15 mg/dL (9-16); Estimated Glomerular Filt Rate > 60
[2025-01-03] MEDS: Zoledronic Acid/Mannitol-Water 5 MG/100 ML PGGYBK.BTL IV (14:29)
== END 2025-01-03 15:00 | disposition home or self-care (01) ==
LOC: HO.INF 13:36
PROVIDERS: Visit Provider Internal Medicine Gastroenterology
DX: M81.0 Age-related osteoporosis without current pathological fracture (principal)
CPT/HCPCS: 36415; 82565; 84520; 96374; J3489

== ENCOUNTER 2025-03-26 14:42 | Outpatient (AMB) | payer MEDICARE, MEDICAID, SELFPAY ==
--- NOTE | 2025-03-26 14:53 | A.OFFVIS_ITS ---
VS Expanded 03/26/25 15:18 BP 120/76 Blood Pressure Location Rt brachial Blood Pressure Position Sitting Pulse 87 Pulse Source Pulse Oximeter Temp 96.6 F L Temperature Source Temporal Artery Scan Pulse Oximetry 97 Oxygen Delivery Method Room Air Height 5 ft 5 in Weight 125 lb 12.8 oz BMI 20.9 Body Fat % 30.4 Body Fat Mass 38.2 Fat Free Mass 87.6 Visceral Fat Rating 5.0 Body Water % 49.3 Body Water Mass 62.0 Muscle Mass/Score 83.2 Basal Metabolic Rate/Score 1,190 Intake Visit Reasons: OV DIAPHRAGMATIC PO S/P Allergies egg yolk Allergy (Mild, Verified 03/26/25 15:07) Unknown clarithromycin (From BIAXIN) Allergy (Unknown, Verified 03/26/25 15:07) SWELLING codeine (CODEINE) Allergy (Unknown, Verified 03/26/25 15:07) SWELLING egg (EGG) Allergy (Unknown, Verified 03/26/25 15:07) SWELLING metoclopramide (From REGLAN) Allergy (Unknown, Verified 03/26/25 15:07) SWELLING nortriptyline Allergy (Unknown, Verified 03/26/25 15:07) swelling raw eggs Allergy (Mild, Uncoded 12/16/24 09:08) unknown Biaxin Allergy (Unknown, Uncoded 12/16/24 09:08) unknown Medication List - Last Reconciled 03/26/25 by MISSAEL Montilla acetaminophen ER 650 mg PO Q12H PRN alprazolam 0.5 mg PO DAILY amitriptyline 10 mg PO DAILY azithromycin 500 mg PO DAILY 14 days bupropion HCl XL 300 mg PO DAILY bupropion HCl XL 150 mg PO DAILY rqxejopmls-chnytguqcfkki-skge 50-325-40 mg 1 tab PO DAILY PRN calcium citrate 400 mg PO DAILY celecoxib 200 mg PO DAILY Held on 05/05/24. Instructions: Resume on 05/26/24. cholecalciferol (vitamin D3) (Vitamin D3) 25 mcg PO DAILY cyanocobalamin (vitamin B-12) 1,000 mcg IM Q4W cyclobenzaprine 15 mg PO BEDTIME Held on 05/05/24. Instructions: Resume on 05/19/24. dronabinol 10 mg PO TID Held on 05/05/24. Instructions: Resume on 05/06/24. Only if you have nausea duloxetine 60 mg PO BEDTIME duloxetine 30 mg PO DAILY@0900 estradiol 1 mg PO DAILY Held on 05/05/24. Instructions: Resume on 05/19/24. galcanezumab-gnlm 120 mg subcut QMONTH Held on 05/05/24. Instructions: Resume on 05/19/24. hydrochlorothiazide 25 mg PO DAILY Held on 05/05/24. Instructions: Resume on 05/06/24. Check your blood pressure every morning. Take it only if your blood pressure is over 135/90 linaclotide 290 mcg PO DAILY omeprazole 40 mg PO DAILY ondansetron 4 mg PO Q12H plecanatide (Trulance) 3 mg orally every other day; potassium citrate ER 20 mEq PO TID prazosin 1 mg PO BEDTIME sodium chloride 1,000 mg PO DAILY PRN sumatriptan succinate 100 mg PO DAILY PRN MDD 200 mg thiamine HCl (vitamin B1) 100 mg PO DAILY topiramate 100 mg PO BID 90 days valacyclovir 500 mg PO DAILY vibegron (Gemtesa) 75 mg PO DAILY zolpidem 10 mg PO BEDTIME HPI Comments Details: Patient is a 54-year-old female who is 11 months status post hiatal hernia repair performed on 04/30/2024. She reports she is not following any structured meal plan. Will have protein shakes when she has a flare-up of gastroparesis. Previous episodes of occasional nausea and pain have resolved. She offers no other significant complaints at today's visit. Taking MVI. Completed pantoprazole, rare reflux- will take omeprazole PRN. Getting infusions for osteoporosis. [facility] Medical History Anorexia Acute dehydration Ketosis Preprocedural examination Malnutrition Herpes DJD (degenerative joint disease) Anxiety Insomnia Migraines Epigastric abdominal pain Hypoglycemia Surgical History Hx of hernia repair Hx of cholecystectomy Hx of spinal fusion History of fundoplication Hx of total knee replacement H/O cataract removal with insertion of prosthetic lens Hx of appendectomy History of carpal tunnel release Hx of eye surgery Hx of bladder repair surgery History of repair of hiatal hernia Hx of abdominal hysterectomy Hx of fusion of cervical spine Hx of endoscopy History of colonoscopy Family History Father History of cancer Mother Hx of heat stroke Social History Household Members: Spouse Housing: House Do you presently have visiting nurse or other home services: No Alcohol intake: current Alcohol intake frequency: holidays/special occasions only Patient Tobacco Use Status: Former Tobacco user Substance Use Type: Marijuana Advance Directives Date on File: 05/11/20 service: No Assessment & Plan Assessment & Plan (1) History of repair of hiatal hernia: Code(s): Z98.890 - Other specified postprocedural states; Z87.19 - Personal history of other diseases of the digestive system Category: Medical Plan Pt doing well after hiatal hernia repair. No complications. She asked about likelihood of recurrence and we discussed activites to avoid (weight gain, increased intraabdominal pressure, overfilling of stomach with meals). She follows with Dr. Santana. She will call the office if any problems arise. Otherwise can follow up PRN.
[2025-03-26 15:18] VITALS: BP 120/76; PULSE 87; TEMP 35.9; O2SAT 97; BMI 20.9
--- OUTSIDE RECORDS SUMMARY | 2025-03-26 15:37 | XMS_ITS | Clinical Summary ---
Author Organization [facility] Address [address] [address] Phone Care Team Providers Care Environmental Engineering Manager Name Role Phone Jenn Coleman MD Primary Care Provider [phone] Allergies Active Allergy Reactions Criticality Noted Date [...] by mouth 1 (one) time each day 04/06/20 21 Active B-D 3CC LUER-CONCEPCION SYR 25GX1 [...] (1080 MG) CR tabletIndicatio ns:Renal stone,Hypokalem ia TAKE TWO TABLETS BY MOUTH IN THE MORNING, 2 TABLETS AT NOON AND 2 TABLETS IN THE EVENING .TAKE WITH MEALS. DO NOT CRUSH CHEW OR SPLIT 540 tablet 3 01/24/20 25 Active hydroCHLOROthia zide (HYDRODIURIL) 50 MG tabletIndicatio ns:Renal stone,Hypokalem ia Take 0.5 tablets (25 mg total) by mouth 1 (one) time each day 90 tablet 3 03/19/20 25 Active hydroCHLOROthia zide (HYDRODIURIL) 50 MG tabletIndicatio ns:Renal stone,Hypokalem ia Take 0.5 tablets (25 mg total) by mouth 1 (one) time each day 90 tablet 3 02/06/20 24 025 Discontin ued(Reord er (does not appear on AVS)) Active Problems Problem Noted Date Diagnosed Date Vitamin D deficiency, not otherwise specified Horseshoe kidney 02/05/2025 Hyperkalemia 02/06/2024 Hypokalemia 02/06/2024 Assessment & Plan (02/06/2024 11:29 PM EDT): Low K 3.3 as of 01/30/24 Increasing dietary K intake Resume Potassium Citrate 20 meq BID Recheck BMP in 1 week Chronic kidney disease stage 2 12/25/2020 Assessment & Plan (02/06/2024 11:34 PM EDT): [...] abdominal pain Gastroparesis 12/26/2013 Overview (12/25/2020): Gastroparesis Encounters Date Type Department Care Team Description 03/19/2025 Refill [facility] [address] [address] Tricia Sanchez Renal stone; Hypokalemia 02/05/2025 7:30 AM EDT Office Visit [facility] [address] [address] Ashwini Stone ARNP Chronic kidney disease stage 2 (Primary Dx); Loin pain-hematuria syndrome; Horseshoe kidney; Vitamin D deficiency, not otherwise specified 01/23/2025 Refill [facility] [address] [facility] [address] [place] [phone] Ashwini Stone ARNP Renal stone; Hypokalemia from Last 3 Months Immunizations Immunization Administration Dates Next Due Zoster [...] Sign Reading Time Taken Comments Blood Pressure 100/62 02/05/2025 7:36 AM EDT Pulse 106 02/05/2025 7:36 AM EDT Temperature - - Respiratory Rate - - Oxygen Saturation 97% 02/05/2025 7:36 AM EDT Inhaled Oxygen Concentration - - Weight 60.1 kg (132 lb 9.6 oz) 02/05/2025 7:36 A M EDT Height 165.1 cm (5' 5 ) 12/25/2020 2:16 PM EDT Body Mass Index 22.07 12/25/2020 2:16 PM EDT Plan of Treatment Upcoming Encounters Date Type Department Care Team (Late st Contact Info) Description 02/05/2026 9:00 AM EDT Office Visit [facility] [address] [facility] [address] [place] [address] Ashwini Stone ARNP [address] [facility] [address] [place] [id number] Health Maintenance Due Date Last Done Comments Breast Cancer Screening 1970 Hepatitis B Vaccine (1 of 3 - 19+ 3-dose series) 1989 Colorectal Cancer Screening: Annual FOBT 2019 Colorectal Cancer Screening: Colonoscopy 2019 Colorectal Cancer Screening: Sigmoidoscopy 2019 Pneumococcal Vaccine: 50+ Ye ars (3 of 3 - PCV) 09/03/2021 09/03/2020, 08/15/2013 Influenza Vaccine (#1) 2025 04/25/2020, 2018 Pneumococcal Vaccine: Peds ( 0 to 5 Years) and At-Risk Patients (6 to 49 Years) Discontinued 09/03/2020, 08/15/2013 Procedures Procedure Name Priority Date/Time Associated Diagnosis Comments PROTEIN / CREATININE RATIO, URINE Routine 02/17/2025 3:09 PM EDT Chronic kidney disease stage 2 Loin pain-hematuria syndrome URINALYSIS Routine 02/17/2025 3:09 PM EDT Chronic kidney disease stage 2 Loin pain-hematuria syndrome URINE ALBUMIN / CREATININE RATIO Routine 02/17/2025 3:09 PM EDT Chronic kidney disease stage 2 Loin pain-hematuria syndrome RENAL FUNCTION PANEL Routine 02/17/2025 3:09 PM EDT Chronic kidney disease stage 2 Loin pain-hematuria syndrome VITAMIN D 25 HYDROXY Routine 02/17/2025 3:08 PM EDT Vitamin D deficiency, not otherwise specified from Last 3 Months Results * Urine Protein / creatinine ratio (02/17/2025 3:09 PM EDT) Creatinine, Ur 49.9 Not Estab. mg/dL [facility] Protein, Ur 6.0 Not Estab. mg/dL [facility] Urine Protein/Creatin ine Ratio 120 0 - 200 mg/g creat [facility] Urine Urine specimen obtained by clean catch procedure / Unknown 02/17/2025 3:09 PM EDT 02/17/2025 us Ashwini Stone PROFESSOR OF VIOLIN LAB URINE ORDERABLES Final Result Performing Organization Address City/[facility]/ZIP Co de Phone Number [facility] [address] [place] [address] * Urine Albumin / Creatinine Ratio (02/17/2025 3:09 PM EDT) Albumin, Urine <3.0 Not Estab. ug/mL [facility] Albumin/Creatin ine Ratio <6 0 - 29 mg/g creat [facility] Comment: Normal: 0 - 29 Moderately increased: 30 - 300 Severely increased: >300 Urine Urine specimen obtained by clean catch procedure / Unknown 02/17/2025 3:09 PM EDT 02/17/2025 [facility] LAB URINE ORDERABLES Final Result Performing Organization Address [facility]/ZIP Co de Phone Number [facility] [address] [place] [address] * Urinalysis without microscopic (02/17/2025 3:09 PM EDT) Specific [place], Urine 1.018 1.005 - 1.030 [facility] [phone] pH Urine 6.5 5.0 - 7.5 [facility] Color, Urine Yellow Yellow [facility] Appearance Urine Clear Clear [facility] WBC Esterase Urine Negative Negative [facility] [phone] Protein, Ur Negative Negative/Tra ce [facility] Glucose, Ur Negative Negative [facility] Ketones, Urine Negative Negative [facility] Blood Urine Negative Negative [facility] Bilirubin Urine Negative Negative [facility] Urobilinogen Urine 0.2 0.2 - 1.0 mg/dL [facility] Nitrite, Urine Negative Negative [facility] [phone] Microscopic Examination Comment [facility] [phone] Comment:Microscopic not dalia cated and not performed. Urine Urine specimen obtained by clean catch procedure / Unknown 02/17/2025 3:09 PM EDT 02/17/2025 Ashwini Stone [facility] LAB URINE ORDERABLES Final Result [facility] [address] [place] [address] * (ABNORMAL) Renal function panel (02/17/2025 3:09 PM EDT) Glucose 94 70 - 99 mg/dL [facility] BUN 16 6 - 24 mg/dL [facility] Creatinine 0.73 0.57 - 1.00 mg/dL [facility] eGFR CKD-EPI CR 2020 97 >59 mL/min/1.7 3 [facility] BUN/Creatinine Ratio 22 9 - 23 [facility] Sodium 140 134 - 144 mmol/L [facility] Potassium 4.3 3.5 - 5.2 mmol/L [facility] Chloride 106 96 - 106 mmol/L [facility] Bicarbonate (CO2) 20 20 - 29 mmol/L [facility] Calcium 9.7 8.7 - 10.2 mg/dL [facility] Phosphorus 2.2(L) 3.0 - 4.3 mg/dL [facility] Albumin 4.3 3.8 - 4.9 g/dL [facility] Blood Venous blood / Unknown 02/17/2025 3:09 PM EDT 02/17/2025 Ashwini Stone [facility] LAB BLOOD ORDERABLES Final Result [facility] [address] [place] [address] * Vitamin D 25 hydroxy (02/17/2025 3:08 PM EDT) Vitamin D, 25-OH, Total 31.4 30.0 - 100.0 ng/mL [facility] Comment: Vitamin D deficiency has been defined by the [place] of Medicine and an Endocrine Society practice guideline as a level of serum 25-OH vitamin D less than 20 ng/mL (1,2). The Endocrine Society went on to further define vitamin D insufficiency as a level between 21 and 29 ng/mL (2). 1. IOM ([place] of [employer]). 2010. Dietary reference intakes for calcium and D. [place]: The National Academies Press. 2. Ramone MF, Slava NC, Shamir-Clive JUNG, et al. Evaluation, treatment, and prevention of vitamin D deficiency: an Endocrine Society clinical practice guideline. JCEM. 2010; 96(7):1911-30. Blood Venous blood / Unknown 02/17/2025 3:08 PM EDT 02/17/2025 Ashwini [facility] LAB BLOOD ORDERABLES Final Result [facility] [address] [place] [address] from Last 3 Months Insurance Medicaid [place] Care Teams Environmental Engineering Manager Relationship Specialty Start Date End Date Jenn Coleman MD [address] [place] [phone] [facility] - General 08/17/20
--- OUTSIDE RECORDS SUMMARY | 2025-03-26 15:37 | XMS_ITS | Encounter Summary ---
Author Organization [facility] Address [address] [place] [address] Care Team Providers Care Risk Professional Name Role Phone Jenn Coleman MD Primary Care Provider [phone] Encounter Details Date Type Department Care Team (Late st Contact Info) Description 02/27/2025 Lab Requisition [facility] - Main Lab [address] [facility] [address] [place] [address] Roselyn Gallagher NP [address] [facility] [address] [place] [address] Frequency of micturition Social History Tobacco Use Types Packs/Day Years Used Date Smoking Tobacco: Former Cigarettes Q uit: 08/08/1989 Alcohol Use Standard Drinks/Week Comments Not Asked [...] as of this encounter Plan of Treatment Not on file documented as of this encounter Procedures Procedure Name Priority Date/Time Associated Diagnosis Comments BACTERIAL IDENTIFICATION AND SUSCEPTIBILITY, AEROBIC Routine 02/26/2025 12:00 AM EDT Frequency of micturition documented in this encounter Results * Bacterial identification and susceptibility, aerobic (02/26/2025 12:00 AM EDT) Culture, Bacterial ID and Sensitivity Mixed urogenital eugenio, no uropathogens present. Suggest repeat specimen, if clinically indicated. 02/27/2025 1:24 PM EDT [facility] Other Urine specimen from urethra / Unknown 02/26/2025 02/27/2025 12:44 PM EDT us Roselyn Gallagher PAYROLL ACCOUNTING CLERK LAB MICROBIOLOGY - GENERA L ORDERABLES Final Result [facility] [address] [place] [address], documented in this encounter Visit Diagnoses Diagnosis Frequency of micturition Urinary frequency documented in this encounter Care Teams Risk Professional Relationship Specialty Start Date End Date Jenn Coleman MD [address] [place] [phone] PCP - General Internal Medicine 07/29/24 documented as of this encounter
== END 2025-03-26 15:27 | disposition home or self-care (01) ==
LOC: HO.HBS 14:42
PROVIDERS: PCP Internal Medicine; Visit Provider Physician Assistant Surgical
DX: Z71.3 Dietary counseling and surveillance (principal); Z98.890 Other specified postprocedural states; Z87.19 Personal history of other diseases of the digestive system
CPT/HCPCS: 99213; G2211

== ENCOUNTER → 2025-03-26 14:42 | Outpatient (BNVA) | payer MEDICARE, MEDICAID, SELFPAY | PROVIDERS: PCP Internal Medicine; Visit Provider Physician Assistant Surgical | DX: Z87.19 Personal history of other diseases of the digestive system (principal); Z98.890 Other specified postprocedural states | CPT/HCPCS: 99212 ==

== ENCOUNTER 2025-05-20 13:50 | Outpatient (AMB) | payer MEDICARE, MEDICAID, SELFPAY ==
--- NOTE | 2025-05-20 13:59 | A.OFFVIS_ITS ---
Intake Visit Reasons: 4m migraine, CR Allergies egg yolk Allergy (Mild, Verified 03/26/25 15:07) Unknown clarithromycin (From BIAXIN) Allergy (Unknown, Verified 03/26/25 15:07) SWELLING codeine (CODEINE) Allergy (Unknown, Verified 03/26/25 15:07) SWELLING egg (EGG) Allergy (Unknown, Verified 03/26/25 15:07) SWELLING metoclopramide (From REGLAN) Allergy (Unknown, Verified 03/26/25 15:07) SWELLING nortriptyline Allergy (Unknown, Verified 03/26/25 15:07) swelling raw eggs Allergy (Mild, Uncoded 12/16/24 09:08) unknown Biaxin Allergy (Unknown, Uncoded 12/16/24 09:08) unknown Medication List - Last Reconciled 05/20/25 by Cassandra Villegas MD acetaminophen ER 650 mg PO Q12H PRN alprazolam 0.5 mg PO DAILY amitriptyline 75 mg PO BEDTIME azithromycin 500 mg PO DAILY 14 days bupropion HCl XL 300 mg PO DAILY bupropion HCl XL 150 mg PO DAILY [id number] 50-325-40 mg 1 tab PO DAILY PRN calcium citrate 400 mg PO DAILY celecoxib 200 mg PO DAILY Held on 05/05/24. Instructions: Resume on 05/26/24. cholecalciferol (vitamin D3) (Vitamin D3) 25 mcg PO DAILY cyanocobalamin (vitamin B-12) 1,000 mcg IM Q4W cyclobenzaprine 15 mg PO BEDTIME Held on 05/05/24. Instructions: Resume on 05/19/24. dronabinol 10 mg PO TID Held on 05/05/24. Instructions: Resume on 05/06/24. Only if you have nausea duloxetine 60 mg PO BEDTIME duloxetine 30 mg PO DAILY@0900 duloxetine 20 mg PO BID estradiol 1 mg PO DAILY Held on 05/05/24. Instructions: Resume on 05/19/24. galcanezumab-gnlm (Emgality Pen) 120 mg subcut QMONTH galcanezumab-gnlm (Emgality Pen) 120 mg subcut QMONTH 30 days hydrochlorothiazide 25 mg PO DAILY Held on 05/05/24. Instructions: Resume on 09/30/24. Check your blood pressure every morning. Take it only if your blood pressure is over 135/90 omeprazole 40 mg PO DAILY ondansetron 4 mg PO Q12H plecanatide (Trulance) 3 mg orally every other day; potassium citrate ER 20 mEq PO TID prazosin 1 mg PO BEDTIME sodium chloride 1,000 mg PO DAILY PRN sumatriptan succinate take 1 tab at onset of headache; if no relief, may repeat 1 tab after at least 2 hrs; max = 2 tabs/24 hrs PO 30 days thiamine HCl (vitamin B1) 100 mg PO DAILY topiramate 100 mg PO BID 90 days valacyclovir 500 mg PO DAILY zolpidem 10 mg PO BEDTIME HPI Comments Details: Doing better with fewer headaches. Still getting headache about 3/ wk with 4- 5/10 above and behind eyes. Migraine intensity increases in the last week before the next injection. Sleep is slightly better.?Problems with siblings. Has a psychotherapist. Since stomach surgery gastroparesis may have acted up.??Uses Sumatriptan 9 in 2 weeks then uses Tylenol Arthritis averaging 6-7 a day. Occasional migraine.?Migraine lasted 7-8 days and needed to take Oxycodone. Has poor vision for reading and distance and has glasses. Always had amblyopia on the right and has problems in the left eye since cataract operation 09/09/[address] Morris. No diplopia. Emgality is working. Shoulder is ok. Neck pain and stiffness and pain radiating down LUE>RUE especially with cold and damp weather. F/U MRI C spine 05/28 and 01/03/18 shows no major change from 04/20/17 with post op changes at C5-6 and degen changes and C6-7 small HNP at C6-7 and C4-5 appear less prominent. Possible slight C7 and C6 encroachment. Severe narrowing of C6-7 right neural foramina. Last Botox 05/03/17 . Had discectomy and fusion of C5-6 on 01/31/17. Sleeping better. Depression is under control. Gastroparesis and Nausea doing ok lately. No energy. MRI of the brain was normal including orbits. She has previously failed amitriptyline 100 mg a day . Needs very bright lights to see. Eyes feel sensitive and pressure. [facility] Medical History Anorexia Acute dehydration Ketosis Preprocedural examination Malnutrition Herpes DJD (degenerative joint disease) Anxiety Insomnia Migraines Epigastric abdominal pain Hypoglycemia Surgical History Hx of hernia repair Hx of cholecystectomy Hx of spinal fusion History of fundoplication Hx of total knee replacement H/O cataract removal with insertion of prosthetic lens Hx of appendectomy History of carpal tunnel release Hx of eye surgery Hx of bladder repair surgery History of repair of hiatal hernia Hx of abdominal hysterectomy Hx of fusion of cervical spine Hx of endoscopy History of colonoscopy Family History Father History of cancer Mother Hx of heat stroke Social History Household Members: Spouse Housing: House Do you presently have visiting nurse or other home services: No Alcohol intake: current Alcohol intake frequency: holidays/special occasions only Patient Tobacco Use Status: Former Tobacco user Substance Use Type: Marijuana Advance Directives Date on File: 05/11/20 service: No Review of Systems Const Details: Sleep:? Difficulty getting to sleepdenies.? Difficulty maintaining sleepdenies?.? Urge to move legsdenies.? Teeth grindingdenies.? Shouting or Kicking during sleep denies.? Abnormal behavior during sleepdenies.? Excessive sleepdenies.? Snoring denies.? Daytime sleepinessdenies. ???General/Constitutional:? Change in appetitedenies.? Chillsdenies.? Fatiguedenies.? Feverdenies.? Weight gaindenies.? Weight lossdenies. ???Ophthalmologic:? Blurred visiondenies.? Diminished visual acuitydenies. ???ENT:? Stuffinessdenies.? Decreased hearingdenies.? Dry mouthdenies.? Ear paindenies.? Nosebleeddenies.? Ringing in the earsdenies.? Sinus paindenies.? Sore throat denies.? Swollen glandsdenies. ???Endocrine:? Cold intolerancedenies.? Excessive thirstdenies.? Frequent urinationdenies.? Heat intolerancedenies. ???Respiratory:? Shortness of breathdenies.? Chest paindenies.? Coughdenies. ???Breast:? Breast lumpdenies.? Nipple dischargedenies. ???Cardiovascular:? Chest pain at restdenies.? Chest pain with exertiondenies.? Claudicationdenies .? Dizzinessdenies.? Fluid accumulation in the legsdenies.? Irregular heartbeat denies.? Palpitationsdenies. ???Gastrointestinal:? Abdominal paindenies.? Constipationdenies.? Diarrheadenies.? Difficulty swallowingdenies.? Heartburndenies.? Nauseadenies.? Rectal bleedingdenies. ???Hematology:? Easy bruisingdenies.? Prolonged bleedingdenies. ???Genitourinary:? Frequent urinationdenies.? Urgencydenies.? Incontinencedenies.? Erectile Dysfunctiondenies. ???Musculoskeletal:? Neck paindenies.? Back painadmits.? Muscle achesdenies.? Painful jointsdenies.? Sciaticadenies.? Weaknessdenies. ???Podiatric:? Difficulty walkingdenies.? Foot numbnessdenies. ???Neurologic:? Difficulty swallowingdenies.? Balance difficultydenies.? Coordinationnormal.? Difficulty speakingdenies.? Dizzinessdenies.? Faintingdenies.? Gait abnormality denies.? Headacheadmits.? Loss of strengthdenies.? Loss of use of extremity denies.? Low back painadmits.? Memory lossdenies.? Seizuresdenies.? Ticsdenies.? Tingling/Numbnessdenies.? Transient loss of visiondenies.? Tremordenies. ???Psychiatric:? Anxietydenies.? Auditory/visual hallucinationsdenies.? Delusionsdenies.? Depressed mooddenies.? Stressorsdenies.? Substance abusedenies.? Suicidal thoughtsdenies. Physical Exam Neuro Other: General Examination: GENERAL APPEARANCE:??normal,in no acute distress.?HEAD:??normocephalic,?atraumatic.?EYES:??sclera non- icteric,?conjunctiva clear.?EARS:??auditory canal clear,?tympanic membrane intact, clear.?NOSE:??no lesions.?ORAL CAVITY:??gums normal,?mucosa moist,?no lesions.?THROAT:??clear.?NECK/THYROID:??no cervical lymphadenopathy,?thyroid normal,?neck supple, full range of motion,?no carotid bruit.?SKIN:??no rashes,?no significant birthmarks.?HEART:??S1, S2 normal,?no murmurs.?LUNGS:??clear anteriorly and posteriorly.?CHEST:??no gross rib deformi ty,?clear to auscultation.?BACK:??normal exam of spine.?EXTREMITIES:??no edema.?PERIPHERAL PULSES:??normal.?PSYCH:??alert, oriented,?cognitive function intact,?cooperative with exam.? Neurological: Abnormal neurological findings:??Alternating convergent strabismus. No diplopia. Slight droop of angle of mouth on the right but no facial weakness. Dominant left eye. Limitation of left shoulder abduction to 65 degrees and limited external rotation..?Mental Status:??alert and oriented X 3,?Normal attention, orientation, memory and affect.?Cranial Nerves:??Conversion strabismus. Pupils are equal, round and reactive to light. Fundoscopy shows normal disc bilaterally. External occular muscles are intact. Visual rico are full, no ptosis. Face is symmetrical, no facial weakness or droop. Facial sensations are normal. Tongue protrudes in midline. Palate elevates symmetrically. Shoulder shrugging is normal..?Motor Examination:??Normal muscle tone, bulk and strength,?No atrophy or fasciculations,?No drift of the extended upper extremities,?Deep tendon reflexes are 2+?,?Plantars are flexor?.?Straight Leg Raising:??90 degrees.?Sensory Exam:??Normal light touch, temperature, pinprick, vibration and joint-position sensations?,?Rhomberg sign is absent.?Coordination:??no ataxia,?no titubation,?upttlb-ih-nxym, uktp-kodm-djun test and rapid alternating movements were normal.?Gait Exam:??Within normal limits.?Cerebellar Signs:??Nvqeal-kf-xhqg and biit-mb-xfdh is normal,?no dysdiadochokinesia?.?Extrapyramidal System:??No tremor, rigidity with normal facial expressions,?No bradykinesia, no bradyphrenia. Normal arm swing and posture. No propulsion or retropulsion.?Speech:??Normal,?no dysphasia or dysarthria..? Mini Mental Status Exam: Level of Consciousness:??Alert.?Orientation:??Knows correct year, month, date, day and season,?Knows correct city, county and state. Knows correct location and floor.?Registration:??Able to register 3 objects.?Attention:??Serial 7's performed accurately.?Recall:??Able to recall 3 out of 3 objects.?Language:??Normal spontaneous speech, fluency, repetition,naming, comprehension, reading and writing.?Total Score:??.? Assessment & Plan Assessment & Plan (1) Migraines: Comment: 02/05/24 MRI brain shows minimal enlargement of vents compared to study of 2012. Single right posterior parietal subcortical lesion probably microvascular vs migraine related. 03/14/24 EEG- WNL. Code(s): G43.909 - Migraine, unspecified, not intractable, without status migrainosus Category: Medical (2) Tension headache: Code(s): G44.209 - Tension-type headache, unspecified, not intractable Category: Medical (3) Cervical radiculopathy: Code(s): M54.12 - Radiculopathy, cervical region Category: Medical (4) Memory change: Code(s): R41.3 - Other amnesia Category: Medical Plan Continue current meds. Coding Level of Care Code Est Pt Level 4 (40967) Diagnoses Migraines G43.909 Tension headache G44.209 Cervical radiculopathy M54.12 Memory change R41.3
--- OUTSIDE RECORDS SUMMARY | 2025-05-20 16:51 | XMS_ITS | Clinical Summary ---
Author Organization [facility] Address [facility] [address] [address] Phone Care Team Providers Care Feed Mixer Name Role Phone Jenn Coleman MD Primary Care Provider [phone] Allergies Active Allergy Reactions Criticality Noted Date Comments Clarithromycin Other (See Comments) 09/29/2011 nausea,vomitting + hives Codeine Other (See Comments) 09/29/2011 nausea, vomitting + hives Divalproex Sodium Other (See Comments) 09/29/2011 nausea,vomitting + black out Egg Derived Other (See Comments) 09/29/2011 lips tingling + throat close Gabapentin Other (See Comments) High 09/17/2015 dizziness, fatigue, nightmares Reglan (Metoclopramide Hcl) Angioedema,Other (See Comments) High 05/07/2014 tingling Medications zolpidem (AMBIEN) 10 mg tablet AMBIEN (ZOLPIDEM TARTRATE); Dose: Not available; Form: Not available; Route: PO; Frequency: Not available; Directions: As directed; Details: Dispense: Tablet(s); Status: Active; Source: FRNAK NUNEZ; Date: 09/29/2011 2 Active estradiol (ESTRACE) 2 MG tablet ESTRADIOL TABS 2 MG TABLET; Dose: 2 MG; Form: Take 1 TABLET; Route: PO; Frequency: QD; Directions: Not available; Details: Dispense: Tablet(s); Status: Active; Source: GISELA STARKN.P.; Date: 12/26/2013 4 Active omeprazole-sodium bicarbonate (ZEGERID) 40-1,680 mg Pack OMEPRAZOLE [address]; Dose: 40 MG; Form: Take [address]; Route: PO; Frequency: QD; Directions: Not available; Details: Dispense: Tablet(s); Status: Active; Source: GISELA STARKN.P.; Date: 05/07/2014 4 Active potassium citrate (UROCIT-K) 10 mEq SR tablet POTASSIUM CITRATE 10 MEQ (1080MG) TABLET ; Dose: 10 MEQ; Form: Take 1 TABLET ; Route: PO; Frequency: TID; Directions: Not available; Details: Dispense: Tablet(s); Status: Active; Source: GISELA STARKN.P.; Date: 05/07/2014 4 Active cyanocobalamin, vitamin B-12, 1,000 mcg Subl VITAMIN B12 (CYANOCOBALAMI N) 1000MCG/ML VIAL; Dose: 1000 MCG; Form: Take 1 ML; Route: IM; Frequency: QMONTH; Directions: Not available; Details: Dispense: 1 Month(s) Supply; Status: Active; Source: GISELA STARKN.P.; Date: 11/19/2014 5 Active pyridoxine, vitamin B6, (B-6) 50 MG tablet VITAMIN B6 (PYRIDOXINE HCL) 50 MG TABLET; Dose: 50 MG; Form: Take 1 TABLET; Route: PO; Frequency: QD; Directions: Not available; Details: Dispense: Tablet(s); Status: Active; Source: GISELA STARK,N.P.; Date: 12/26/2013 4 Active topiramate (TOPAMAX) 50 MG tablet Take 3 tablets (150 mg total) by mouth nightly. 270 tablet 3 7 Active linaclotide (LINZESS) 290 mcg Cap capsule Take 1 capsule (290 mcg total) by mouth daily. Take 20-30 mins prior to breakfast. 30 capsule 3 7 Active ondansetron (ZOFRAN-ODT) 4 MG disintegrating tablet Take 1 tablet (4 mg total) by mouth every 8 (eight) hours as needed for nausea. Take one tab under tongue three times daily as needed for nausea 90 tablet 1 7 Active DULoxetine (CYMBALTA) 20 MG capsule Take 1 capsule (20 mg total) by mouth 2 (two) times a day. Please request additional refills from PCP 60 capsule 7 Active ALPRAZolam (XANAX) 0.5 MG tablet Take 0.5 mg by mouth as needed. 2 Active EMGALITY PEN 120 mg/mL subcutaneous injection 5 Active droNABinol (MARINOL) 10 MG capsule Take 10 mg by mouth 3 (three) times a day. Active buPROPion (WELLBUTRIN XL) 150 MG ER 24 hr tablet Active Active Problems Problem Noted Date Diagnosed Date Medical cannabis use 12/01/2024 Assessment & Plan (12/01/2024 10:19 AM EDT): CannaRx: What to get: CBDa Capsules CBDa topical Where to get it: You can purchase CBDa Capsules/cream for mail order here: [email or web address] Coupon Code: DRZ How to take it: 1 capsule daily. After 2-3 weeks, increase to 2 capsules daily as needed CBDa topical - apply to area of pain up to 4 times per day Anxiety 10/31/2024 Degenerative disc disease at L5-S1 level 025 Assessment & Plan (12/01/2024 10:19 AM EDT): With chronic pain. Dronabinol has been helpful for pain management. Continue cannabis with adjustments discussed below. 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 022 Overview (10/31/2024): My orthopedic said I will always have this pain as the partial knee replacement only gave me stability Renal stone 12/25/2020 Stage 2 chronic kidney disease 12/25/2020 Overview (10/31/2024): In the setting of horseshoe kidney w/ LPHS Avoid Nephrotoxins Constipation 12/26/2013 Overview (09/27/2014): Constipation Chronic abdominal pain 12/26/2013 Overview (09/27/2014): Chronic abdominal pain Gastroparesis 12/26/2013 Overview (09/27/2014): Gastroparesis Assessment & Plan (12/01/2024 10:20 AM EDT): Dx with gastroparesis 22 years ago - which she attributes to years of prescribed oxycodone (since age 14). Severe gastroparesis in 2012. Followed [facility], last visit in 2016. Still with chronic nausea, abdominal pain. Prescribed Cymbalta, Wellbutrin and Topamax. Prescribed Dronabinol by pain management and uses cannabis edibles as well - which she does find helpful for maintaining her appetite. Is interested in a more specific regimen utilizing other cannabinoids than THC to manage her symptoms. We reviewed this today - see below. Continue current regimen. Okay for Dronabinol and phytocannabinoids. F/u GI - reconsult Neuro[facility] PRN Social History Tobacco Use Types Packs/Day Years Used Date Smoking Tobacco: Former Smokeless Tobacco: Never Tobacco Cessation:Counseling Given: Not Answered Alcohol Use Standard Drinks/Week Comments Not Currently 0 (1 standard drink = 0.6 oz pur e alcohol) Education Answer Date Recorded Are you interested in more education? Not on megan e 12/11/2022 Are you concerned about learning? Not on file 12/11/2022 No 12/11/2022 No 12/11/2022 Digital Access Answer Date Recorded No 01/01/2023 No 01/01/2023 Reliable internet access at home? Not on file 01/01/2023 Device with a working camera? Not on file Comments Unknown Sex and Gender Information Value Date Recorded Sex Assigned at Female 10/23/2024 10:38 AM EDT Legal Sex Female 6:36 PM EST Gender Identity Female 10/23/2024 10:38 AM EDT Sexual Orientation Straight 10/23/2024 10 :38 AM EDT Last Filed Vital Signs Vital Sign Reading Time Taken Comments Blood Pressure 98/64 12/26/2013 11:11 AM EDT Pulse - - Temperature - - Respiratory Rate - - Oxygen Saturation - - Inhaled Oxygen Concentration - - Weight 53.1 kg (117 lb) 12/26/2013 11:11 AM EDT Height - - Body Mass Index - - Plan of Treatment Health Maintenance Due Date Last Done Comments LIPID PANEL 1970 DEPRESSION SCREENING 1982 SMOKING Hx and SMOKELESS TOBACCO SCREENING 1983 HEPATITIS C SCREENING 02/17/1988 HIV ONE-TIME SCREENING (18-65 YEARS) 02/17/1988 PAP SMEAR 1991 MAMMOGRAM 2010 COLOGUARD 2015 FIT TEST 2015 FOBT 2015 SIGMOIDOSCOPY 2015 VIRTUAL COLONOSCOPY 2015 PNEUMOCOCCAL VACCINES (50+ years) (2 of 2 - PCV) 09/03/2021 09/03/2020, 08/15/2013 COLONOSCOPY 02/27/2024 02/26/2014, 02/26/2014 COLORECTAL CANCER SCREENING 02/27/2024 INFLUENZA VACCINE (#1) 2025 , 05/01/2019, 05/31/2018, Additional history exists COVID-19 VACCINE (2 - 2024- season) 2025 10/01/2020 Adult Td,Tdap Booster 11/25/2027 11/24/2017, 002 RSV VACCINE (1 - 1-dose 75+ series) 2045 ZOSTER VACCINES Completed 06/25/2020, 04/25/2020 HEPATITIS A VACCINES Aged Out No long er eligible based on patient's age to complete this topic HIB VACCINES Aged Out No longer eligi ble based on patient's age to complete this topic MENINGOCOCCAL VACCINES (ACWY) Aged Out No longer eligible based on patient's age to complete this topic MENINGOCOCCAL VACCINES (B) Aged Out N o longer eligible based on patient's age to complete this topic Medical Devices Not on file Procedures Procedure Name Priority Date/Time Associated Diagnosis Comments ENDOSCOPY, COLON 02/26/2014 5:49 PM EDT from Last 3 Months or Most Recently Relevant to Health Maintenance Results * ENDOSCOPY, COLON (02/26/2014 5:49 PM EDT) 02/26/2014 5:49 PM EDT Narrative 03/03/2014 12:24 PM EDT Report Number: [id number] Report Status: Final Type: Lower EUS Date: 02/26/2014 17:49 [facility] [phone] Patient Name: Lorie Purcell Exam Date: 02/26/2014 5:49 PM Date of : 1970 Age: 44 Gender: Female Note Status: Finalized Attending MD: Dirk Collazo MD Procedure: Lower EUS Indications: Abnormal imaging 794.3 Providers: Dirk Collazo MD Referring MD: Dirk Collazo MD (Referring MD), Flaco Russell MD (Referring MD) Medicines: Monitored Anesthesia Care Complications: No immediate complications. Estimated blood loss: Minimal. Procedure: Pre-Anesthesia Assessment: - Prior to the procedure, a History and Physical was performed, and patient medications, allergies and sensitivities were reviewed. The patient's tolerance of previous anesthesia was reviewed. - The risks and benefits of the procedure and the sedation options and risks were discussed with the patient. All questions were answered and informed consent was obtained. - ASA Grade Assessment: II - A patient with mild systemic disease. After obtaining informed consent, the endoscope was passed under direct vision. Throughout the procedure, the patient's blood pressure, pulse, and oxygen saturations were monitored continuously. The Endosonoscope was introduced through the anus and advanced to the the rectosigmoid junction for ultrasound. Findings: Radial EUS exam of the anorectum demonstrated a normal anal sphincter muscle group. Impression: Normal radial EUS of the anorectum (see colo for images) Recommendation: - F/u with Dr Drew Collazo MD, [id number] 03/03/2014 12:23 PM The attending physician was present throughout the entire procedure. Number of Addenda: 0 Note Initiated On: 02/26/2014 5:49 PM Procedure Note Dirk Collazo MD - 02/26/2014 5:49 PM EDT Report Number: [id number] Report Status:Final Type: Lower EUS Date: 02/26/2014 17:49 [facility] [phone] Patient Name: Lorie Purcell Exam Date: 02/26/2014 5:49 PM Date of : 1970 Age: 44 Gender: Female Note Status: Finalized Attending MD: Dirk Collazo MD Procedure: Lower EUS Indications: Abnormal imaging 794.3 Providers: Dirk Collazo MD Referring MD: Dirk Collazo MD (Referring MD), Flaco Russell MD (Referring MD) Medicines: Monitored Anesthesia Care Complications: No immediate complications. Estimated blood loss: Minimal. Procedure: Pre-Anesthesia Assessment: - Prior to the procedure, a History and Physical was performed, and patient medications, allergies and sensitivities were reviewed. The patient's tolerance of previous anesthesia was reviewed. - The risks and benefits of the procedure and the sedation options and risks were discussed with the patient. All questions were answered and informed consent was obtained. - ASA Grade Assessment: II - A patient with mild systemic disease. After obtaining informed consent, the endoscope was passed under direct vision. Throughout the procedure, the patient's blood pressure, pulse, and oxygen saturations were monitored continuously. The Endosonoscope was introduced through the anus and advanced to the the rectosigmoid junction for ultrasound. Findings: Radial EUS exam of the anorectum demonstrated a normal anal sphincter muscle group. Impression: Normal radial EUS of the anorectum (see colo for images) Recommendation: - F/u with Dr Drew S[place]zone, [place], [id number] 03/03/2014 12:23 PM The attending physician was present throughout the entire procedure. Number of Addenda: 0 Note Initiated On: 02/26/2014 5:49 PM Dirk Collazo MD GI PROCEDURE ORDERABL ES Final Result from Last 3 Months or Most Recently Relevant to Health Maintenance Insurance MEDICARE PART A & B [facility] MEDIC[facility] PART A & B HEALTH MEDICARE PART A & B MEDICARE PART A & [facility] MEDIC[facility] PART A & B Care Teams Feed Mixer Relationship Specialty Start Date End Date Jenn Coleman MD [address] [place] [id number] PCP - General Internal Medicine 03/25/22 Additional Source Comments The information contained in this document represents components of the legal health record. It is not the complete legal health record.[facility]
== END 2025-05-20 14:17 | disposition home or self-care (01) ==
LOC: HO.HSM 13:51
PROVIDERS: PCP Internal Medicine; Referring Provider Internal Medicine; Visit Provider Psychiatry & Neurology Neurology
DX: G43.909 Migraine, unspecified, not intractable, without status migrainosus (principal); G44.209 Tension-type headache, unspecified, not intractable; M54.12 Radiculopathy, cervical region; R41.3 Other amnesia
CPT/HCPCS: 99214

== ENCOUNTER → 2025-05-20 13:50 | Outpatient (BNVA) | payer MEDICARE, MEDICAID, SELFPAY | PROVIDERS: PCP Internal Medicine; Referring Provider Internal Medicine; Visit Provider Psychiatry & Neurology Neurology | DX: G43.909 Migraine, unspecified, not intractable, without status migrainosus (principal); G44.209 Tension-type headache, unspecified, not intractable; M54.12 Radiculopathy, cervical region; R41.3 Other amnesia | CPT/HCPCS: 99212 ==